=== PATIENT | female | born 1960 | race Caucasian/White ===

== ENCOUNTER 2016-09-24 18:26 | Observation (INO) | payer OTHER ==
[2016-09-24] MEDS ORDERED: methylPREDNISolone Sodium Succinate 125 MG/2 ML SDV IVPUSH ONE (19:33)
[2016-09-24] MEDS ORDERED: Sodium Chloride 0.9% 10 ML Syringe FLUSH PRN (19:33)
[2016-09-24] MEDS ORDERED: Albuterol/Ipratropium 3.0-0.5 MG/3 ML Neb Soln NEB ONE (19:33)
[2016-09-24] MEDS ORDERED: Albuterol/Ipratropium 3.0-0.5 MG/3 ML Neb Soln ONE (19:43)
--- NOTE | 2016-09-24 19:56 | EDM.PDOC ---
ED HISTORY OF PRESENT ILLNESS - General Chief Complaint: Respiratory Problem Stated Complaint: ASTHMA ATTACK Time Seen by Provider: 09/24/16 19:17 Source: Reports: Patient History Limitations: Reports: No limitations - History of Present Illness INITIAL COMMENTS - FREE TEXT/NARRATIVE: This lady comes in complaining of shortness of breath. She had pneumonia about September 08 or . She said initially she took a Z-Facundo followed by some other antibiotic and then eventually was put on Levaquin and prednisone. She finished that about 2 days ago. She's complaining of increasing shortness of breath. She denies any kind of edema. She denies any type of heart disease. She denies any fever. She has a history of asthma and has a nebulizer at home. She's been using DuoNeb. - Related Data Allergies/ADRs: Allergies Allergy/AdvReac Type Severity Reaction Status Date / Time aspirin Allergy Cannot Verified 07/09/16 12:32 Remember bupropion HCl Allergy Other Verified 07/09/16 12:32 [From Wellbutrin] ceftriaxone sodium Allergy Respiratory Verified 07/09/16 12:32 [From Rocephin] Distress Sulfa (Sulfonamide Allergy Hives Verified 07/09/16 12:32 Antibiotics) Home Meds: Home Meds Venlafaxine HCl [Venlafaxine HCl] 150 mg PO BID 10/04/13 [History] Albuterol/Ipratropium [Combivent Respimat] 1 puff IH QID 07/16/14 [History] Albuterol/Ipratropium [DuoNeb 3.0-0.5 MG/3 ML] 3 ml IH Q6H PRN 09/13/15 [History ] Ibuprofen 4 tab PO ASDIRECTED 07/09/16 [History] Past Medical History Respiratory History: Reports: Asthma, COPD [employer] History: Reports: Other (see below) Other OB/BYN History: ovarian cyst Psychiatric History: Reports: Anxiety, Depression - Infectious Disease History Infectious Disease History: Reports: Chicken pox, Measles - Past Surgical History Female Surgical History: Reports: Oophorectomy Social & Family History - Tobacco Use Smoking Status *Q: Current Every Day Smoker Years of Tobacco use: 30 Packs/Tins Daily: 0.5 Used Tobacco, but Quit: Yes Month Tobacco Last Used: 07/29 Second Hand Smoke Exposure: Yes - Caffeine Use Caffeine Use: Reports: None - Alcohol Use Days Per Week of Alcohol Use: 0 - Recreational Drug Use Recreational Drug Use: No ED ROS GENERAL - Review of Systems Review Of Systems: ROS reveals no pertinent complaints other than HPI. ED EXAM, GENERAL - Physical Exam Exam: See Below Exam Limited By: No limitations General Appearance: alert, mild distress, other (Appears to be mildly dyspneic audible wheezes) Eye Exam: bilateral eye: normal inspection Throat/Mouth: Normal oropharynx Head: atraumatic Neck: normal inspection Respiratory/Chest: respiratory distress (Mild distress), wheezing (Wheezing in all owens decreased air movement) Cardiovascular: regular rate, rhythm, no murmur GI/Abdominal: non tender Extremities: no pedal edema Course - Vital Signs Last Recorded V/S: Last Vital Signs Temp 37.0 C 09/24/16 18:38 Pulse 102 H 09/24/16 18:38 Resp 16 09/24/16 18:38 BP 116/61 09/24/16 18:38 Pulse Ox 92 L 09/24/16 18:38 - Orders/Labs/Meds Orders: Active Orders 24 hr Category Date Time Status Admission Status [Patient Status] [ADT] Routine ADT 09/24/16 20:29 Active EKG Documentation Completion [RC] ASDIRECTED Care 09/24/16 19:33 Active RT Aerosol Therapy [RC] ASDIRECTED Care 09/24/16 19:33 Active RT Aerosol Therapy [RC] ASDIRECTED Care 09/24/16 20:45 Active Chest 2V [CR] Urgent Exams 09/24/16 19:33 Taken Sodium Chloride 0.9% [Saline Flush] Med 09/24/16 19:33 Active 10 ml FLUSH ASDIRECTED PRN Saline Lock Insert [OM.PC] Urgent Oth 09/24/16 19:33 Ordered EKG 12 Lead [EK] Urgent Ther 09/24/16 19:33 Ordered Medication Orders Sodium Chloride (Saline Flush) 10 ml FLUSH ASDIRECTED PRN PRN Reason: Keep Vein Open Last Admin: 09/24/16 19:50 Dose: 10 ml Labs: Laboratory Tests 09/24/16 09/24/16 Range/Units 19:45 19:45 WBC 11.4 H (4.5-11.0) K/uL RBC 5.10 (3.30-5.50) M/uL Hgb 15.4 H (12.0-15.0) g/dL Hct 47.7 (36.0-48.0) % MCV 94 (80-98) fL MCH 30 (27-31) pg MCHC 32 (32-36) % Plt Count 289 (150-400) K/uL Neut % (Auto) 70 H (36-66) % Lymph % (Auto) 18 L (24-44) % [place] % (Auto) 12 H (2-6) % Eos % (Auto) 0 L (2-4) % Baso % (Auto) 0 (0-1) % Sodium 140 (140-148) mmol/L Potassium 4.1 (3.6-5.2) mmol/L Chloride 102 (100-108) mmol/L Carbon Dioxide 32 (21-32) mmol/L Anion Gap 6.5 (5.0-14.0) mmol/L BUN 13 (7-18) mg/dL Creatinine 0.7 (0.6-1.0) mg/dL Est Cr Clr Drug Dosing 78.41 mL/min Estimated GFR (MDRD) > 60 (>60) Glucose 103 (74-106) mg/dL Calcium 8.7 (8.5-10.1) mg/dL Total Bilirubin 0.4 (0.2-1.0) mg/dL AST 23 (15-37) U/L ALT 70 D (12-78) U/L Alkaline Phosphatase 74 (46-116) U/L Total Protein 7.7 (6.4-8.2) g/dL Albumin 3.8 (3.4-5.0) g/dL Globulin 3.9 H (2.3-3.5) g/dL Albumin/Globulin Ratio 1.0 L (1.2-2.2) Meds: Medications Generic Name Dose Route Start Last Admin Trade Name Freq PRN Reason Stop Dose Admin Sodium Chloride 10 ml 09/24/16 19:33 09/24/16 19:50 Saline Flush FLUSH 10 ml ASDIRECTED PRN Administration Keep Vein Open Discontinued Medications Generic Name Dose Route Start Last Admin Trade Name Freq PRN Reason Stop Dose Admin Albuterol 2.5 mg 09/24/16 20:45 Proventil Neb Soln NEB 09/24/16 20:46 ONETIME ONE Albuterol/Ipratropium 3 ml 09/24/16 19:33 09/24/16 19:44 Duoneb 3.0-0.5 Mg/3 Ml NEB 09/24/16 19:34 3 ml ONETIME ONE Administration Albuterol/Ipratropium Confirm 09/24/16 19:43 09/24/16 20:10 Duoneb 3.0-0.5 Mg/3 Ml Administered 09/24/16 19:44 Not Given Dose 3 ml .ROUTE .STK-MED ONE Methylprednisolone Sodium Succinate 125 mg 09/24/16 19:33 09/24/16 19:49 Solu-Medrol IVPUSH 09/24/16 19:34 125 mg ONETIME ONE Administration - Re-Assessments/Exams Free Text/Narrative Re-Assessment/Exam: 09/24/16 20:47 Chest x-ray shows no obvious infiltrate she appears hyperexpanded. Heart size is normal. No evidence of pulmonary edema Patient receives a DuoNeb nebulizer in the ER as well as Solu-Medrol 125 mg IV. I rechecked her just a short while ago and she is still wheezing and very tight so will do a straight albuterol nebulizer. I spoke with Dr. Johnson a short while ago the patient will be admitted to his service. He will see her upstairs. 09/24/16 20:49 At this point I don't think the lady needs ICU admission Departure - Departure Time of Disposition: 20:48 Disposition: Admitted As Inpatient 66 Condition: serious Clinical Impression: Asthmatic bronchitis with acute exacerbation Forms: ED Department Discharge - My Orders Last 24 Hours: My Active Orders 09/24/16 19:33 EKG Documentation Completion [RC] ASDIRECTED RT Aerosol Therapy [RC] ASDIRECTED Chest 2V [CR] Urgent Sodium Chloride 0.9% [Saline Flush] 10 ml FLUSH ASDIRECTED PRN Saline Lock Insert [OM.PC] Urgent EKG 12 Lead [EK] Urgent 09/24/16 20:45 RT Aerosol Therapy [RC] ASDIRECTED - Assessment/Plan Last 24 Hours: My Active Orders 09/24/16 19:33 EKG Documentation Completion [RC] ASDIRECTED RT Aerosol Therapy [RC] ASDIRECTED Chest 2V [CR] Urgent Sodium Chloride 0.9% [Saline Flush] 10 ml FLUSH ASDIRECTED PRN Saline Lock Insert [OM.PC] Urgent EKG 12 Lead [EK] Urgent 09/24/16 20:45 RT Aerosol Therapy [RC] ASDIRECTED
[2016-09-24] MEDS ORDERED: Albuterol 0.083% 2.5 MG/3 ML Neb Soln NEB ONE (20:45)
[2016-09-24] MEDS ORDERED: Acetaminophen 325 MG Tab PO PRN (21:28)
[2016-09-24] MEDS ORDERED: Calcium Carbonate 500 MG Tab.Chew PO PRN (21:28)
[2016-09-24] MEDS ORDERED: Azithromycin 250 MG Tab PO ONE (21:45)
[2016-09-24] MEDS ORDERED: Levofloxacin 500 MG Tab PO SCH (22:00)
[2016-09-24] MEDS: Albuterol/Ipratropium 3.0-0.5 MG/3 ML Neb Soln NEB SCH (22:19)
[2016-09-24] MEDS: Venlafaxine 75 MG Tab PO SCH (22:37)
--- NOTE | 2016-09-24 23:55 | HP ---
IDENTIFYING DATA: Alyx Zhang is a 55-year-old, female from [place]. CHIEF COMPLAINT: Exacerbation of asthma. HISTORY OF PRESENT ILLNESS: Adult female reports a pulmonary infection approximately 2-3 weeks ago. She completed a course of Levaquin approximately four days ago, reporting at that time, her respiratory status was stable. However, over the last 48 hours, she has had increased wheeze, shortness of breath, cough, and scant sputum production. She has had no hemoptysis or purulent sputum. No fevers or chills noted. She has failed to see improvement with use of inhaled therapy and was admitted for ongoing treatment. She is a smoker of 1/2 pack per day. Denies environmental allergies. Does use inhaled therapies approximately four times daily. Additionally, she has a history of chronic depressive illness with accompanying anxiety managed with use of venlafaxine. HABITS: Smoker of 1/2 pack per day. Caffeine use, one carbonated caffeine-free beverage daily. Alcohol use, none. Denies other drug use. IMMUNIZATIONS: She believes she received influenza vaccine this past fall though not confirmed by medical records. The last Pneumovax administered in 2011. SOCIAL HISTORY: Residing with family. 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 FAMILY HISTORY: Denies other illness of similar sort in the household at present time. REVIEW OF SYSTEMS: NEUROLOGIC: No history of stroke, seizures, focal weakness, or ocular disease. CARDIAC: No history of hypertension, diabetes, congenital heart disease, PR, chest pain, palpitations, or syncope. RESPIRATORY: As above. GI: Denies chronic dyspepsia, nausea, emesis, diarrhea, constipation, or melena. No history of hepatitis. : Normal voiding patterns. No incontinence. MUSCULOSKELETAL: Without complaints of arthralgias. ALLERGIES: REPORTED TO ASPIRIN, BUPROPION, CEFTRIAXONE, AND SULFA. CURRENT MEDICATIONS: Venlafaxine 150 mg b.i.d.; Combivent 1 puff b.i.d.; DuoNeb, one nebulizer treatment b.i.d.; ibuprofen 600 to 800 mg p.r.n. discomfort. PHYSICAL EXAMINATION: GENERAL: Appearance is that of a mildly dyspneic adult female, seen in the hospital bed setting. VITAL SIGNS: Temperature 37 degrees centigrade, pulse 102, respiratory rate 16, blood pressure 116/61, O2 saturations 92% on room air. HEENT: Ears are normal in appearance. Sclerae anicteric. Extraocular eye movements intact. No nasal congestion. She is edentulous. No oropharyngeal lesions. NECK: No adenopathy or thyromegaly. Brisk carotid pulses. No bruits or JVD. LUNGS: Mildly tachypneic. Fine bilateral expiratory wheezes noted. No rales or rhonchi noted. HEART: Regular. Borderline tachycardic. No murmurs, gallops noted. ABDOMEN: Moderately obese. Soft and nontender. No organomegaly. Active sounds. Good femoral pulses. No abdominal bruits. No CVA pain. /RECTAL: Exam omitted. EXTREMITIES: Good pulses, no edema. No ischemic skin changes. No varicosities or open ulcerations. LABORATORY DATA: On admission, WBC 11.4, hemoglobin 15.4, hematocrit 47.7, platelet count 289,000 with 70 segs, 18 lymphocytes, 12 monos, sodium 140, potassium 4.1, BUN 13, creatinine 0.7, glucose 103, calcium 8.7, alkaline phosphatase 74, AST 23. IMPRESSIONS: 1. Exacerbation of chronic persistent asthmatic lung disease. 2. Reports of recent pneumonia responding to outpatient antibiotic therapy. 3. Chronic tobacco use. 4. History of depression with accompanying anxiety. 5. Allergies as noted above. PLAN: The patient is admitted to observation status in the Med/Surge Department. We will provide IV Solu-Medrol, steroid therapies, as well as supplemental O2 on a p.r.n. basis and oral broad-spectrum antibiotics with combination of azithromycin and Levaquin in light of ceftriaxone allergy by the patient's report. We will avoid penicillin and cephalosporin antibiotic therapies. I did offer nicotine patch for tobacco withdrawal, patient refuses. She will abstain from use of tobacco. Offer standard diet as tolerated. Allow activity as tolerated. Anticipate discharge home in 24 to 48 hours if acute respiratory symptoms quiet with conversion to oral steroid administration and outpatient followup. Moo Johnson MD /[id number]
[2016-09-25] MEDS: Albuterol/Ipratropium 3.0-0.5 MG/3 ML Neb Soln NEB SCH ×7 (00:37→22:59)
[2016-09-25] MEDS ORDERED: Benzonatate 100 MG Cap PO PRN (00:47)
[2016-09-25] MEDS ORDERED: methylPREDNISolone Sod Succ 125 MG in Dextrose 5% in Water 100 ML IV SCH ×2 (04:00)
[2016-09-25] MEDS ORDERED: methylPREDNISolone Sodium Succinate 125 MG/2 ML SDV ONE (05:24)
[2016-09-25] MEDS ORDERED: methylPREDNISolone Sodium Succinate 125 MG/2 ML SDV IVPUSH SCH (05:30)
[2016-09-25] MEDS ORDERED: Albuterol/Ipratropium 3.0-0.5 MG/3 ML Neb Soln ONE (07:26)
--- NOTE | 2016-09-25 08:46 | PN ---
DATE OF SERVICE: 09/25/2016 SUBJECTIVE: Adult female, smoker, has a noted history of chronic asthmatic lung disease with maintenance inhaled therapy, including DuoNeb and Combivent metered dose inhaler. She was noted to have an acute respiratory infection 2 weeks ago and completed a course of antibiotic therapy with use of Levaquin as well as short course of oral steroids late last week. Through the weekend, she had increasing wheezing and shortness of breath. She has had no fevers, chills, or purulent sputum production. She was admitted for ongoing respiratory therapies. OBJECTIVE: GENERAL: Sleeping soundly, arousable, mild wheeze persist. VITAL SIGNS: Temperature 36.4 degree centigrade, pulse 107, blood pressure 131/75, respiratory rate 18, with O2 sats of 89% on room air. LUNGS: Mild fine expiratory wheezes bilaterally. Non-tachypneic. No rales or rhonchi. HEART: Regular without murmurs or gallops. SKIN: Warm, pink, and dry. IMPRESSION AND PLAN: Exacerbation of asthmatic lung disease in a smoking female. She remains tobacco free since admission, has refused nicotine products for nicotine withdrawal symptoms. We will continue with combination antibiotics using azithromycin and Levaquin as well as IV Solu-Medrol. DuoNeb inhalation therapies are scheduled on a 4-hour interval. Anticipate transition to oral prednisone. Continuation of oral Levaquin and azithromycin and discharge to home when her episode of acute exacerbation is stabilized. Moo Johnson MD /[id number]
[2016-09-25] MEDS ORDERED: Azithromycin 250 MG Tab PO SCH (09:00)
[2016-09-25] MEDS ORDERED: Venlafaxine 75 MG Tab PO SCH (09:00)
[2016-09-25] MEDS ORDERED: Nicotine 21 MG/24 Hr Patch TRDERM SCH (09:00)
[2016-09-25] MEDS: Venlafaxine 75 MG Tab PO SCH ×2 (09:19→21:30)
[2016-09-25] MEDS ORDERED: Pneumococcal Polyvalent-23 Vaccine 0.5 ML SDV IM ONE (10:00)
--- NOTE | 2016-09-25 10:24 | CR ---
Heart size within normal limits. No focal consolidation. Some probable chronic atelectasis similar c ompared to prior in the lingula.
[2016-09-25] MEDS: methylPREDNISolone Sodium Succinate 125 MG/2 ML SDV IVPUSH SCH ×2 (14:01→21:31)
[2016-09-25] MEDS ORDERED: Levofloxacin 500 MG Tab PO SCH (22:00)
[2016-09-26] MEDS: Albuterol/Ipratropium 3.0-0.5 MG/3 ML Neb Soln NEB SCH ×3 (02:59→10:52)
[2016-09-26] MEDS: methylPREDNISolone Sodium Succinate 125 MG/2 ML SDV IVPUSH SCH (05:56)
[2016-09-26] MEDS: Venlafaxine 75 MG Tab PO SCH (09:46)
[2016-09-26 11:11] VITALS: BP 138/78
--- NOTE | 2016-09-26 12:24 | PCM.DCSUM1 ---
Discharge Summary - Hospital Course Brief History: 55-year-old female with history of COPD who presented with worsening shortness of breath and cough and was admitted for management of an exacerbation of COPD secondary to bronchitis - Discharge Data Discharge Date: 09/26/16 Discharge Disposition: Home, Self-Care 01 Condition: Good - Discharge Diagnosis/Problem(s) (1) Asthmatic bronchitis with acute exacerbation SNOMED Code(s): 599659661, [id number] ICD Code: J45.901 - UNSPECIFIED ASTHMA WITH (ACUTE) EXACERBATION Status: Acute - Patient Summary/Data Hospital Course: Alyx presented to the emergency room with cough and shortness of breath despite recent treatment with antibiotics and initially apparent improvement. Workup in the emergency room was suggestive of acute bronchitis with an asthma exacerbation. Laboratory studies were normal. She was mildly hypoxic but significantly symptomatic. She was admitted to the hospital and started on both levofloxacin and azithromycin. She was started on IV Solu-Medrol. She did require intermittent supplemental oxygen. Over the next couple of days she showed a fairly quick improvement. Her wheezing decreased throughout the course of the hospital stay. Her oxygenation improved slowly throughout the hospital stay. No cultures were obtained during hospital stay because of a nonproductive cough. By the day of discharge she has improved significantly. Her wheezing has not completely resolved but is only mild and expiratory at this point. She is achieving oxygen saturations in the 90s on room air. Clinically she feels well enough to go home and I believe she is safe for outpatient management. Medications at the time of discharge will include continuing her nebulizers at home as well as 5 days of levofloxacin therapy taken at bedtime and a prednisone taper over the next 8 days with 20 mg twice a day for 3 days and 20 mg once a day for 5 days. - Patient Instructions Diet: Regular Diet as Tolerated Activity: As Tolerated Driving: May Drive Today Showering/Bathing: May Shower Notify Provider of: Fever, Increased Pain, Nausea and/or Vomiting Other/Special Instructions: 1. You were in the hospital for management of acute bronchitis with an acute exacerbation of COPD. I recommend 5 additional days of antibiotic therapy with levofloxacin taken once daily at bedtime. You should also take prednisone 20 mg by mouth twice daily for 5 more doses then 20 mg once daily for 5 days thereafter. This will give you a total of 10 days of steroids. Your first dose of prednisone is due to this evening with supper. 2. Continue to use your nebulizer 4 times daily and as needed until your breathing improves further. 3. Seek medical attention if you develop fever greater than 101, your shortness of breath gets worse or you develop chest pain. - Discharge Plan Prescriptions/Med Rec: Levofloxacin 750 mg PO BEDTIME #5 tablet predniSONE [Prednisone] 20 mg PO ASDIRECTED #10 tablet Home Medications: Home Meds Venlafaxine HCl 150 mg PO BID 10/04/13 [History] Albuterol/Ipratropium [Combivent Respimat] 1 puff IH QID 07/16/14 [History] Albuterol/Ipratropium [DuoNeb 3.0-0.5 MG/3 ML] 3 ml IH Q6H PRN 09/13/15 [History ] Ibuprofen 4 tab PO ASDIRECTED 07/09/16 [History] Levofloxacin 750 mg PO BEDTIME #5 tablet 09/26/16 [Rx] predniSONE [Prednisone] 20 mg PO ASDIRECTED #10 tablet 09/26/16 [Rx] Patient Handouts: Acute Bronchitis, Prednisone tablets Referrals: Misti Muñoz PA [Primary Care Provider] - 09/29/16 (f/u Sunday - f/u hospital stay for bronchitis with COPD exacerbation) - Discharge Summary/Plan Comment DC Time >30 min.: No (25) - Patient Data Vitals - Most Recent: Last Vital Signs Temp 36.9 C 09/26/16 11:00 Pulse 117 H 09/26/16 11:00 Resp 20 09/26/16 11:00 BP 138/78 09/26/16 11:00 Pulse Ox 88 L 09/26/16 11:00 Weight - Most Recent: 85.275 kg I&O - Last 24 hours: Intake & Output 09/25/16 09/26/16 09/26/16 22:59 06:59 14:59 Intake Total 1000 360 Balance 1000 360 Med Orders - Current: Current Medications Acetaminophen (Tylenol) 650 mg PO Q4H PRN PRN Reason: analgesia/fever Albuterol/Ipratropium (Duoneb 3.0-0.5 Mg/3 Ml) 3 ml NEB Q4H [facility] Last Admin: 09/26/16 10:52 Dose: 3 ml Benzonatate (Tessalon Perles) 200 mg PO TID PRN PRN Reason: Cough Calcium Carbonate/Glycine (Tums) 500 mg PO Q4H PRN PRN Reason: Indigestion Levofloxacin 500 mg/ (Levofloxacin 250 mg) 750 mg PO Q24H [facility] Last Admin: 09/25/16 21:30 Dose: 750 mg Methylprednisolone Sodium Succinate (Solu-Medrol) 62.5 mg IVPUSH Q8H [facility] Last Admin: 09/26/16 05:56 Dose: 62.5 mg Sodium Chloride (Saline Flush) 10 ml FLUSH ASDIRECTED PRN PRN Reason: Keep Vein Open Last Admin: 09/24/16 19:50 Dose: 10 ml Venlafaxine HCl (Effexor) 150 mg PO BID [facility] Last Admin: 09/26/16 09:46 Dose: 150 mg Discontinued Medications Albuterol (Proventil Neb Soln) 2.5 mg NEB ONETIME ONE Stop: 09/24/16 20:46 Last Admin: 09/24/16 21:09 Dose: 2.5 mg Albuterol/Ipratropium (Duoneb 3.0-0.5 Mg/3 Ml) 3 ml NEB ONETIME ONE Stop: 09/24/16 19:34 Last Admin: 09/24/16 19:44 Dose: 3 ml Albuterol/Ipratropium (Duoneb 3.0-0.5 Mg/3 Ml) Confirm Administered Dose 3 ml .ROUTE .STK-MED ONE Stop: 09/24/16 19:44 Last Admin: 09/24/16 20:10 Dose: Not Given Albuterol/Ipratropium (Duoneb 3.0-0.5 Mg/3 Ml) 3 ml NEB Q4H [facility] Last Admin: 09/25/16 07:30 Dose: 3 ml Albuterol/Ipratropium (Duoneb 3.0-0.5 Mg/3 Ml) Confirm Administered Dose 3 ml .ROUTE .STK-MED ONE Stop: 09/25/16 07:27 Last Admin: 09/25/16 07:31 Dose: Not Given Azithromycin (Zithromax) 500 mg PO ONETIME ONE Stop: 09/24/16 21:46 Last Admin: 09/24/16 22:30 Dose: 500 mg Azithromycin (Zithromax) 250 mg PO DAILY [facility] Stop: 09/28/16 09:01 Last Admin: 09/25/16 09:19 Dose: 250 mg Methylprednisolone Sodium Succinate 125 mg/ Dextrose/Water 102 mls @ 200 mls/ hr IV Q8H [facility] Last Admin: 09/25/16 05:40 Dose: Not Given Levofloxacin (Levaquin) 500 mg PO Q24H [facility] Last Admin: 09/24/16 22:30 Dose: 500 mg Levofloxacin (Levaquin) 750 mg PO Q24H [facility] Methylprednisolone Sodium Succinate (Solu-Medrol) 125 mg IVPUSH ONETIME ONE Stop: 09/24/16 19:34 Last Admin: 09/24/16 19:49 Dose: 125 mg Methylprednisolone Sodium Succinate (Solu-Medrol) Confirm Administered Dose 125 mg .ROUTE .STK-MED ONE Stop: 09/25/16 05:25 Last Admin: 09/25/16 05:36 Dose: Not Given Methylprednisolone Sodium Succinate (Solu-Medrol) 125 mg IVPUSH Q8H [facility] Last Admin: 09/25/16 05:35 Dose: 125 mg Nicotine (Habitrol) 21 mg TRDERM DAILY [facility] Pneumococcal Polyvalent Vaccine (Pneumovax 23) 0.5 ml IM .ONCE ONE Stop: 09/25/16 10:01 Last Admin: 09/25/16 11:13 Dose: Not Given Venlafaxine HCl (Effexor) 150 mg PO BID [facility] *Q Meaningful Use (DIS) - VTE *Q VTE Criteria *Q: - Stroke *Q Stroke Criteria *Q: - AMI *Q AMI Criteria *Q:
== END 2016-09-26 13:26 | disposition home or self-care (01) ==
LOC: JP.ED 18:26 → JP.MS 20:29
PROVIDERS: ADMIT Family Medicine; ATTEND Internal Medicine
DX: J45.901 Unspecified asthma with (acute) exacerbation (principal); F41.8 Other specified anxiety disorders; F17.200 Nicotine dependence, unspecified, uncomplicated; Z79.899 Other long term (current) drug therapy; Z88.2 Allergy status to sulfonamides; Z88.8 Allergy status to other drugs, medicaments and biological substances
CPT/HCPCS: 36415; 71020; 80053; 85025; 93005; 94640; 96374; 96376; 99285; A9270; G0378; J2930; J7050; J7620

== ENCOUNTER 2017-04-27 12:38 | Inpatient (IN) | payer OTHER ==
[2017-04-27] MEDS ORDERED: Albuterol 0.083% 2.5 MG/3 ML Neb Soln NEB ONE ×2 (13:31→14:29)
[2017-04-27] MEDS ORDERED: methylPREDNISolone Sodium Succinate 125 MG/2 ML SDV IVPUSH ONE (13:32)
--- NOTE | 2017-04-27 13:41 | EDM.PDOC ---
ED HPI GENERAL MEDICAL PROBLEM - General Chief Complaint: Respiratory Problem Stated Complaint: SOB Time Seen by Provider: 04/27/17 13:39 Source of Information: Reports: Patient, Family History Limitations: Reports: No Limitations - History of Present Illness INITIAL COMMENTS - FREE TEXT/NARRATIVE: pt arrived very sob and wheezing. She has been ill for about 3 days. For 2 days she has received 40 mg of predisone. Onset: Today, Gradual Duration: Day(s):, Getting Worse Location: Reports: Chest Associated Symptoms: Reports: Cough, Shortness of Breath Neck Pain Score (Numeric/FACES): 10 - Related Data Allergies Allergy/AdvReac Type Severity Reaction Status Date / Time aspirin Allergy Cannot Verified 04/27/17 13:19 Remember bupropion HCl Allergy Other Verified 04/27/17 13:19 [From Wellbutrin] ceftriaxone sodium Allergy Respiratory Verified 04/27/17 13:19 [From Rocephin] Distress Sulfa (Sulfonamide Allergy Hives Verified 04/27/17 13:19 Antibiotics) Home Meds: Home Meds Venlafaxine HCl 150 mg PO BID 10/04/13 [History] Albuterol/Ipratropium [Combivent Respimat] 1 puff IH QID 07/16/14 [History] Albuterol/Ipratropium [DuoNeb 3.0-0.5 MG/3 ML] 3 ml IH Q6H PRN 09/13/15 [History ] predniSONE [Prednisone] 1 tab PO ASDIRECTED 04/27/17 [History] Past Medical History Respiratory History: Reports: Asthma, COPD, Pneumonia, Recurrent 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 (See Below) Other OB/BYN History: ovarian cyst Musculoskeletal History: Reports: Fracture Psychiatric History: Reports: Anxiety, Depression - Infectious Disease History Infectious Disease History: Reports: Chicken Pox, Measles - Past Surgical History Female Surgical History: Reports: Oophorectomy Social & Family History - Family History OBGYN: Reports: Fibroids Musculoskeletal: Reports: Arthritis Psychiatric: Reports: Anxiety, Depression - Tobacco Use Smoking Status *Q: Light Tobacco Smoker Years of Tobacco use: 30 Packs/Tins Daily: 0.3 Used Tobacco, but Quit: Yes Month Tobacco Last Used: 07/29 Second Hand Smoke Exposure: Yes - Caffeine Use Caffeine Use: Reports: None - Alcohol Use Days Per Week of Alcohol Use: 0 - Recreational Drug Use Recreational Drug Use: No ED ROS GENERAL - Review of Systems Review Of Systems: See Below Constitutional: Reports: Chills, Malaise, Night Sweats HEENT: Reports: No Symptoms Respiratory: Reports: Shortness of Breath, Wheezing, Cough, Sputum Cardiovascular: Reports: No Symptoms Endocrine: Reports: No Symptoms GI/Abdominal: Reports: No Symptoms : Reports: No Symptoms Musculoskeletal: Reports: No Symptoms Skin: Reports: No Symptoms Neurological: Reports: No Symptoms Psychiatric: Reports: No Symptoms ED EXAM, GENERAL - Physical Exam Exam: See Below Free Text/Narrative:: pt arrived with increased wheezing and sob. She has been ill for the past 3 days. Exam Limited By: No Limitations General Appearance: Alert, Anxious, Moderate Distress Ears: Normal TMs Nose: Normal Inspection Throat/Mouth: Normal Inspection Head: Atraumatic Neck: Normal Inspection Respiratory/Chest: Decreased Breath Sounds, Crackles, Wheezing Cardiovascular: Regular Rate, Rhythm, Tachycardia GI/Abdominal: Soft, Non-Tender (Female) Exam: Deferred Back Exam: Normal Inspection Extremities: Normal Inspection Neurological: Alert, Oriented, Normal Cognition Psychiatric: Normal Affect Course - Vital Signs Last Recorded V/S: Last Vital Signs Temp 37.3 C 04/27/17 13:17 Pulse 103 H 04/27/17 14:44 Resp 18 04/27/17 14:44 BP 128/64 04/27/17 14:44 Pulse Ox 90 L 04/27/17 14:44 - Orders/Labs/Meds Orders: Active Orders 24 hr Category Date Time Status RT Aerosol Therapy [RC] ASDIRECTED Care 04/27/17 13:32 Active RT Aerosol Therapy [RC] ASDIRECTED Care 04/27/17 14:30 Active Sodium Chloride 0.9% [Normal Saline] 1,000 ml Med 04/27/17 13:45 Active IV ASDIRECTED Medication Orders Sodium Chloride (Normal Saline) 1,000 mls @ 250 mls/hr IV ASDIRECTED EVELYN Last Admin: 04/27/17 13:48 Dose: 250 mls/hr Labs: Laboratory Tests 04/27/17 04/27/17 04/27/17 Range/Units 13:35 13:45 13:45 WBC 23.7 H (4.5-11.0) K/uL RBC 4.91 (3.30-5.50) M/uL Hgb 14.5 (12.0-15.0) g/dL Hct 44.7 (36.0-48.0) % MCV 91 (80-98) fL MCH 30 (27-31) pg MCHC 32 (32-36) % Plt Count 272 (150-400) K/uL Neut % (Auto) 94 H (36-66) % Lymph % (Auto) 3 L (24-44) % Wilkes % (Auto) 3 (2-6) % Eos % (Auto) 0 L (2-4) % Baso % (Auto) 0 (0-1) % Puncture Site Rt brachial ABG pH 7.406 (7.350-7.450) ABG pCO2 42.3 H (35.0-42.0) mmHg ABG pO2 53.7 L (75.0-100.0) mmHg ABG HCO3 26.0 (22.0-26.0) mmol/L ABG Total CO2 22.8 (21.0-25.0) mmol/L ABG O2 Saturation 88.4 L (95.0-98.0) % ABG O2 Content 17.7 (15.0-23.0) %vol ABG Base Excess 1.6 mm/L ABG Hemoglobin 14.6 (12.0-16.0) g/dL ABG Oxyhemoglobin 86.2 % ABG Carboxyhemoglobin 1.8 H (0.0-1.6) % ABG Methemoglobin 0.7 % Farhad Test Passed O2 Delivery Device Nasal cannula Sodium 134 L (140-148) mmol/L Potassium 4.0 (3.6-5.2) mmol/L Chloride 99 L (100-108) mmol/L Carbon Dioxide 26 (21-32) mmol/L Anion Gap 13.0 (5.0-14.0) mmol/L BUN 16 (7-18) mg/dL Creatinine 0.7 (0.6-1.0) mg/dL Est Cr Clr Drug Dosing 77.49 mL/min Estimated GFR (MDRD) > 60 (>60) Glucose 162 H (74-106) mg/dL Calcium 8.5 (8.5-10.1) mg/dL Total Bilirubin 0.3 (0.2-1.0) mg/dL AST 30 (15-37) U/L ALT 73 (12-78) U/L Alkaline Phosphatase 108 (46-116) U/L Total Protein 7.5 (6.4-8.2) g/dL Albumin 3.7 (3.4-5.0) g/dL Globulin 3.8 H (2.3-3.5) g/dL Albumin/Globulin Ratio 1.0 L (1.2-2.2) Urine Color Urine Appearance Urine pH (4.5-8.0) Ur Specific [place] (1.008-1.030) Urine Protein (NEGATIVE) mg/dL Urine Glucose (UA) (NEGATIVE) mg/dL Urine Ketones (NEGATIVE) mg/dL Urine Occult Blood (NEGATIVE) Urine Nitrite (NEGATIVE) Urine Bilirubin (NEGATIVE) Urine Urobilinogen (NORMAL) mg/dL Ur Leukocyte Esterase (NEGATIVE) Urine RBC (0-5) Urine WBC (0-5) Ur Epithelial Cells Amorphous Sediment Urine Bacteria Urine Mucus //17 Range/Units 14:43 WBC (4.5-11.0) K/uL RBC (3.30-5.50) M/uL Hgb (12.0-15.0) g/dL Hct (36.0-48.0) % MCV (80-98) fL MCH (27-31) pg MCHC (32-36) % Plt Count (150-400) K/uL Neut % (Auto) (36-66) % Lymph % (Auto) (24-44) % Wilkes % (Auto) (2-6) % Eos % (Auto) (2-4) % Baso % (Auto) (0-1) % Puncture Site ABG pH (7.350-7.450) ABG pCO2 (35.0-42.0) mmHg ABG pO2 (75.0-100.0) mmHg ABG HCO3 (22.0-26.0) mmol/L ABG Total CO2 (21.0-25.0) mmol/L ABG O2 Saturation (95.0-98.0) % ABG O2 Content (15.0-23.0) %vol ABG Base Excess mm/L ABG Hemoglobin (12.0-16.0) g/dL ABG Oxyhemoglobin % ABG Carboxyhemoglobin (0.0-1.6) % ABG Methemoglobin % Farhad Test O2 Delivery Device Sodium (140-148) mmol/L Potassium (3.6-5.2) mmol/L Chloride (100-108) mmol/L Carbon Dioxide (21-32) mmol/L Anion Gap (5.0-14.0) mmol/L BUN (7-18) mg/dL Creatinine (0.6-1.0) mg/dL Est Cr Clr Drug Dosing mL/min Estimated GFR (MDRD) (>60) Glucose (74-106) mg/dL Calcium (8.5-10.1) mg/dL Total Bilirubin (0.2-1.0) mg/dL AST (15-37) U/L ALT (12-78) U/L Alkaline Phosphatase (46-116) U/L Total Protein (6.4-8.2) g/dL Albumin (3.4-5.0) g/dL Globulin (2.3-3.5) g/dL Albumin/Globulin Ratio (1.2-2.2) Urine Color Yellow Urine Appearance Clear Urine pH 6.0 (4.5-8.0) Ur Specific [place] 1.015 (1.008-1.030) Urine Protein Trace (NEGATIVE) mg/dL Urine Glucose (UA) Normal (NEGATIVE) mg/dL Urine Ketones Negative (NEGATIVE) mg/dL Urine Occult Blood Negative (NEGATIVE) Urine Nitrite Negative (NEGATIVE) Urine Bilirubin Negative (NEGATIVE) Urine Urobilinogen Normal (NORMAL) mg/dL Ur Leukocyte Esterase Negative (NEGATIVE) Urine RBC Not seen (0-5) Urine WBC 0-5 (0-5) Ur Epithelial Cells Few Amorphous Sediment Rare Urine Bacteria Few Urine Mucus Moderate Meds: Medications Generic Name Dose Route Start Last Admin Trade Name Freq PRN Reason Stop Dose Admin Sodium Chloride 1,000 mls @ 250 mls/hr 04/27/17 13:45 04/27/17 13:48 Normal Saline IV 250 mls/hr ASDIRECTED EVELYN Administration Discontinued Medications Generic Name Dose Route Start Last Admin Trade Name Freq PRN Reason Stop Dose Admin Albuterol 2.5 mg 04/27/17 13:31 04/27/17 13:40 Proventil Neb Soln NEB 04/27/17 13:32 2.5 mg ONETIME ONE Administration Albuterol 2.5 mg 04/27/17 14:29 04/27/17 14:43 Proventil Neb Soln NEB 04/27/17 14:30 2.5 mg ONETIME ONE Administration Methylprednisolone Sodium Succinate 125 mg 04/27/17 13:32 04/27/17 13:47 Solu-Medrol IVPUSH 04/27/17 13:33 125 mg ONETIME ONE Administration - Re-Assessments/Exams Free Text/Narrative Re-Assessment/Exam: 04/27/17 15:07 Pt had o2 sats in the 77 range. She was very wheezy. Her wbc is 23,000. She has been on predisone 40mg daily. She was given 2 nebs and solumedrol 125 iv. She is breathing much better. Departure - Departure Time of Disposition: 15:10 Disposition: Admitted As Inpatient 66 Condition: Fair Clinical Impression: Bronchitis, Bronchospasm, acute, COPD exacerbation - Discharge Information Referrals: Misti Muñoz PA [Primary Care Provider] - Forms: ED Department Discharge Care Plan Goals: admit to Hosp-- Dr abad. - My Orders Last 24 Hours: My Active Orders 04/27/17 13:32 RT Aerosol Therapy [RC] ASDIRECTED 04/27/17 13:45 Sodium Chloride 0.9% [Normal Saline] 1,000 ml IV ASDIRECTED 04/27/17 14:30 RT Aerosol Therapy [RC] ASDIRECTED - Assessment/Plan Last 24 Hours: My Active Orders 04/27/17 13:32 RT Aerosol Therapy [RC] ASDIRECTED 04/27/17 13:45 Sodium Chloride 0.9% [Normal Saline] 1,000 ml IV ASDIRECTED 04/27/17 14:30 RT Aerosol Therapy [RC] ASDIRECTED
[2017-04-27] MEDS ORDERED: Sodium Chloride 0.9% 1,000 ML IV SCH (13:45)
--- NOTE | 2017-04-27 14:15 | CR ---
Chest 2V HISTORY: Shortness of breath. Wheezing. COMPARISON: 09/24/2016. FINDINGS: Hyperinflation. Cardiac size is normal pulmonary vessels normal. No focal infiltrates or ef fusions. Impression no acute pulmonary disease.
--- NOTE | 2017-04-27 15:55 | PCM.HP ---
H&P History of Present Illness - General Date of Service: 04/27/17 Admit Problem/Dx: Admission Diagnosis/Problem Admission Diagnosis/Problem Acute bronchitis Source of Information: Patient, Family, Provider History Limitations: Reports: No Limitations - History of Present Illness Initial Comments - Free Text/Narative: Alyx presents to the ER with 3 days of progressive cough and shortness of breath. She was seen in the walk-in clinic 2 days ago and started on prednisone but has been declining since starting on the steroids. She has a loose but nonproductive cough that has been fairly consistent and persistent. She is now short of breath even at rest. Oxygen saturations were very poor on arrival and she had noticed cyanosis of her nailbeds on the way to the emergency room. She has had subjective fevers but has not measured any true fevers. No complaints of chest pain or chest tightness. She has been using her nebulizers without much improvement in her symptoms. No complaints of abdominal pain or nausea. No lower extremity edema or orthopnea. Her has been sick but he has had sinus congestion, sore throat and cough which seemed to be getting better. Patient does not report sinus congestion or sore throat. No recent antibiotic use. Workup in the emergency room revealed hypoxic respiratory failure and likely bronchitis with acute COPD exacerbation. She will be admitted for further management. Neck Pain Score (Numeric/FACES): 10 - Related Data Allergies/Adverse Reactions: Allergies Allergy/AdvReac Type Severity Reaction Status Date / Time aspirin Allergy Cannot Verified 04/27/17 13:19 Remember bupropion HCl Allergy Other Verified 04/27/17 13:19 [From Wellbutrin] ceftriaxone sodium Allergy Respiratory Verified 04/27/17 13:19 [From Rocephin] Distress Sulfa (Sulfonamide Allergy Hives Verified 04/27/17 13:19 Antibiotics) Home Medications: Home Meds Venlafaxine HCl 150 mg PO BID 10/04/13 [History] Albuterol/Ipratropium [Combivent Respimat] 1 puff IH QID 07/16/14 [History] Albuterol/Ipratropium [DuoNeb 3.0-0.5 MG/3 ML] 3 ml IH Q6H PRN 09/13/15 [History ] predniSONE [Prednisone] 1 tab PO ASDIRECTED 04/27/17 [History] Past Medical History Respiratory History: Reports: Asthma, COPD, Pneumonia, Recurrent [employer]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: Other (See Below) Other OB/BYN History: ovarian cyst Musculoskeletal History: Reports: Fracture Psychiatric History: Reports: Anxiety, Depression - Infectious Disease History Infectious Disease History: Reports: Chicken Pox, Measles - Past Surgical History Female Surgical History: Reports: Oophorectomy Social & Family History - Family History OBGYN: Reports: Fibroids Musculoskeletal: Reports: Arthritis Psychiatric: Reports: Anxiety, Depression - Tobacco Use Smoking Status *Q: Light Tobacco Smoker Years of Tobacco use: 30 Packs/Tins Daily: 0.3 Used Tobacco, but Quit: Yes Month Tobacco Last Used: 07/29 Second Hand Smoke Exposure: Yes - Caffeine Use Caffeine Use: Reports: None - Alcohol Use Days Per Week of Alcohol Use: 0 - Recreational Drug Use Recreational Drug Use: No H&P Review of Systems - Review of Systems: Review Of Systems: See Below Free Text/Narrative: A complete 12 point review of systems was obtained. Pertinent positives and negatives are noted in the history of present illness. All other systems were reviewed and were negative except as noted. Exam - Exam Exam: See Below - Vital Signs Vital Signs: Last Vital Signs Temp 37.3 C 04/27/17 13: Pulse 103 H 04/27/17 14:44 Resp 18 04/27/17 14:44 BP 128/64 04/27/17 14:44 Pulse Ox 90 L 04/27/17 14:44 Weight: 82.554 kg - Exam Quality Assessment: Supplemental Oxygen General: Alert, Oriented, Cooperative, Mild Distress HEENT: Conjunctiva Clear, Mucosa Moist & [place]. No: Scleral Icterus Neck: Supple, Trachea Midline. No: Lymphadenopathy Lungs: Normal Respiratory Effort, Rhonchi (diffuse exp wheezing ), Wheezing ( diffuse exp wheezing) Cardiovascular: Regular Rate, Regular Rhythm. No: Systolic Murmur GI/Abdominal Exam: Normal Bowel Sounds, Soft, Non-Tender, No Distention Extremities: No Pedal Edema. No: Increased Warmth Skin: Warm, Moist Neuro Extensive - Mental Status: Alert, Oriented x3, Nl Response to Commands Neuro Extensive - Motor, Sensory, Reflexes: CN II-XII Intact. No: Dysarthria, Abnormal Motor, Tremor Psychiatric: Alert, Normal Affect - Patient Data Lab Results Last 24 hrs: Laboratory Results - last 24 hr 04/27/17 04/27/17 04/27/17 Range/Units 13:35 13:45 13:45 WBC 23.7 H (4.5-11.0) K/uL RBC 4.91 (3.30-5.50) M/uL Hgb 14.5 (12.0-15.0) g/dL Hct 44.7 (36.0-48.0) % MCV 91 (80-98) fL MCH 30 (27-31) pg MCHC 32 (32-36) % Plt Count 272 (150-400) K/uL Neut % (Auto) 94 H (36-66) % Lymph % (Auto) 3 L (24-44) % [place] % (Auto) 3 (2-6) % Eos % (Auto) 0 L (2-4) % Baso % (Auto) 0 (0-1) % Puncture Site Rt brachial ABG pH 7.406 (7.350-7.450) ABG pCO2 42.3 H (35.0-42.0) mmHg ABG pO2 53.7 L (75.0-100.0) mmHg ABG HCO3 26.0 (22.0-26.0) mmol/L ABG Total CO2 22.8 (21.0-25.0) mmol/L ABG O2 Saturation 88.4 L (95.0-98.0) % ABG O2 Content 17.7 (15.0-23.0) %vol ABG Base Excess 1.6 mm/L ABG Hemoglobin 14.6 (12.0-16.0) g/dL ABG Oxyhemoglobin 86.2 % ABG Carboxyhemoglobin 1.8 H (0.0-1.6) % ABG Methemoglobin 0.7 % Farhad Test Passed O2 Delivery Device Nasal cannula Sodium 134 L (140-148) mmol/L Potassium 4.0 (3.6-5.2) mmol/L Chloride 99 L (100-108) mmol/L Carbon Dioxide 26 (21-32) mmol/L Anion Gap 13.0 (5.0-14.0) mmol/L BUN 16 (7-18) mg/dL Creatinine 0.7 (0.6-1.0) mg/dL Est Cr Clr Drug Dosing 77.49 mL/min Estimated GFR (MDRD) > 60 (>60) Glucose 162 H (74-106) mg/dL Calcium 8.5 (8.5-10.1) mg/dL Total Bilirubin 0.3 (0.2-1.0) mg/dL AST 30 (15-37) U/L ALT 73 (12-78) U/L Alkaline Phosphatase 108 (46-116) U/L Total Protein 7.5 (6.4-8.2) g/dL Albumin 3.7 (3.4-5.0) g/dL Globulin 3.8 H (2.3-3.5) g/dL Albumin/Globulin Ratio 1.0 L (1.2-2.2) Urine Color Urine Appearance Urine pH (4.5-8.0) Ur Specific [place] (1.008-1.030) Urine Protein (NEGATIVE) mg/dL Urine Glucose (UA) (NEGATIVE) mg/dL Urine Ketones (NEGATIVE) mg/dL Urine Occult Blood (NEGATIVE) Urine Nitrite (NEGATIVE) Urine Bilirubin (NEGATIVE) Urine Urobilinogen (NORMAL) mg/dL Ur Leukocyte Esterase (NEGATIVE) Urine RBC (0-5) Urine WBC (0-5) Ur Epithelial Cells Amorphous Sediment Urine Bacteria Urine Mucus 04/27/17 Range/Units 14:43 WBC (4.5-11.0) K/uL RBC (3.30-5.50) M/uL Hgb (12.0-15.0) g/dL Hct (36.0-48.0) % MCV (80-98) fL MCH (27-31) pg MCHC (32-36) % Plt Count (150-400) K/uL Neut % (Auto) (36-66) % Lymph % (Auto) (24-44) % [place] % (Auto) (2-6) % Eos % (Auto) (2-4) % Baso % (Auto) (0-1) % Puncture Site ABG pH (7.350-7.450) ABG pCO2 (35.0-42.0) mmHg ABG pO2 (75.0-100.0) mmHg ABG HCO3 (22.0-26.0) mmol/L ABG Total CO2 (21.0-25.0) mmol/L ABG O2 Saturation (95.0-98.0) % ABG O2 Content (15.0-23.0) %vol ABG Base Excess mm/L ABG Hemoglobin (12.0-16.0) g/dL ABG Oxyhemoglobin % ABG Carboxyhemoglobin (0.0-1.6) % ABG Methemoglobin % Farhad Test O2 Delivery Device Sodium (140-148) mmol/L Potassium (3.6-5.2) mmol/L Chloride (100-108) mmol/L Carbon Dioxide (21-32) mmol/L Anion Gap (5.0-14.0) mmol/L BUN (7-18) mg/dL Creatinine (0.6-1.0) mg/dL Est Cr Clr Drug Dosing mL/min Estimated GFR (MDRD) (>60) Glucose (74-106) mg/dL Calcium (8.5-10.1) mg/dL Total Bilirubin (0.2-1.0) mg/dL AST (15-37) U/L ALT (12-78) U/L Alkaline Phosphatase (46-116) U/L Total Protein (6.4-8.2) g/dL Albumin (3.4-5.0) g/dL Globulin (2.3-3.5) g/dL Albumin/Globulin Ratio (1.2-2.2) Urine Color Yellow Urine Appearance Clear Urine pH 6.0 (4.5-8.0) Ur Specific [place] 1.015 (1.008-1.030) Urine Protein Trace (NEGATIVE) mg/dL Urine Glucose (UA) Normal (NEGATIVE) mg/dL Urine Ketones Negative (NEGATIVE) mg/dL Urine Occult Blood Negative (NEGATIVE) Urine Nitrite Negative (NEGATIVE) Urine Bilirubin Negative (NEGATIVE) Urine Urobilinogen Normal (NORMAL) mg/dL Ur Leukocyte Esterase Negative (NEGATIVE) Urine RBC Not seen (0-5) Urine WBC 0-5 (0-5) Ur Epithelial Cells Few Amorphous Sediment Rare Urine Bacteria Few Urine Mucus Moderate Result Diagrams: 04/27/17 13:45 04/27/17 13:45 Imaging Impressions Last 24 hrs: CXR - images personally reviewed - lungs are clear with no mass, infiltrate, chf or effusion. Mild hyperinflation. *Q Meaningful Use (ADM) - VTE *Q VTE Criteria *Q: - VTE Risk Assess *Q Each Risk Factor Represents 1 Point: Age 41 - 59 years, Obesity ( BMI > 25 kg/m2 ), Abnormal Pulmonary Function (COPD) Total Score 1 Point Risk Factors: 3 Each Risk Factor Represents 2 Points: None Total Score 2 Point Risk Factors: 0 Each Risk Factor Represents 3 Points: None Total Score 3 Point Risk Factors: 0 Each Risk Factor Represents 5 Points: None Total Score 5 Point Risk Factors: 0 Venous Thromboembolism Risk Factor Score *Q: 3 - Stroke *Q Stroke Criteria *Q: - AMI *Q AMI Criteria *Q: - Problem List (1) Bronchitis SNOMED Code(s): 75458217 ICD Code: J40 - BRONCHITIS, NOT SPECIFIED ACUTE OR CHRONIC Status: Acute Current Visit: Yes (2) COPD exacerbation SNOMED Code(s): 830721243 ICD Code: J44.1 - CHRONIC OBSTRUCTIVE PULMONARY DISEASE W (ACUTE) EXACERBATION Status: Acute Current Visit: Yes (3) Tobacco dependence SNOMED Code(s): 80201068 ICD Code: F17.200 - NICOTINE DEPENDENCE, UNSPECIFIED, UNCOMPLICATED Status : Chronic Current Visit: Yes Problem List Initiated/Reviewed/Updated: Yes Orders Last 24hrs: Active Orders 24 hr Category Date Time Status Patient Status Manage Transfer [TRANSFER] Routine ADT 04/27/17 15:44 Ordered RT Aerosol Therapy [RC] ASDIRECTED Care 04/27/17 13:32 Active RT Aerosol Therapy [RC] ASDIRECTED Care 04/27/17 14:30 Active Doxycycline [Vibramycin] 100 mg Med 04/27/17 15:45 Ordered Sodium Chloride 0.9% [Normal Saline] 100 ml IV Q12HR Sodium Chloride 0.9% [Normal Saline] 1,000 ml Med 04/27/17 13:45 Active IV ASDIRECTED Resuscitation Status Routine Resus Stat 04/27/17 15:46 Ordered Medication Orders Sodium Chloride (Normal Saline) 1,000 mls @ 250 mls/hr IV ASDIRECTED EVELYN Last Admin: 04/27/17 13:48 Dose: 250 mls/hr Doxycycline Hyclate 100 mg/ (Sodium Chloride) 100 mls @ 100 mls/hr IV Q12HR EVELYN Assessment/Plan Comment:: Assessment and plan - Acute bronchitis with acute exacerbation of COPD - cough and subjective fevers without significant symptoms to suggest viral infection. She has hypoxic respiratory failure and significant wheezing. She is very symptomatic, even at rest. She is not safe for outpatient management and has been getting worse despite outpatient steroids. -IV Solu-Medrol -Doxycycline -Scheduled and as needed nebulizers -Supplement oxygen as needed -Symptomatically management -Sputum culture if able Tobacco dependence - encourage cessation. Does not want nicotine replacement. Maintenance issues - - DVT prophylaxis - SCD's - GI prophylaxis - not indicated - Nutrition - Regular - Jarvis catheter - not indicated CODE STATUS - FULL CODE Admission justification - This patient will be admitted for inpatient services and is medically appropriate meeting medical necessity for inpatient admission as outlined in my documentation. I reasonably expect the patient will require inpatient services that span a period time over 2 midnights. I reasonably expect this patient to be discharged or transferred within 96 hours after admission to the [facility]. Disposition - anticipate discharge to home after the hospital stay Primary care physician - Lauren Nunez M.D.
[2017-04-27] MEDS: Doxycycline 100 MG in Sodium Chloride 0.9% 100 ML IV SCH (16:03)
[2017-04-27] MEDS ORDERED: Benzonatate 100 MG Cap PO PRN (16:28)
[2017-04-27] MEDS ORDERED: oxyCODONE 5 MG Tab PO PRN (16:28)
[2017-04-27] MEDS ORDERED: Acetaminophen 325 MG Tab PO PRN (16:28)
[2017-04-27] MEDS ORDERED: Albuterol/Ipratropium 3.0-0.5 MG/3 ML Neb Soln NEB SCH (16:28)
[2017-04-27] MEDS ORDERED: Polyethylene Glycol 3350 Powder 17 GM Packet PO PRN (16:28)
[2017-04-27] MEDS ORDERED: Ondansetron 4 MG Tab.DIS PO PRN (16:28)
[2017-04-27] MEDS: Sodium Chloride 0.9% 1,000 ML IV SCH (17:54)
[2017-04-27] MEDS: Albuterol 0.083% 2.5 MG/3 ML Neb Soln NEB PRN (18:25)
[2017-04-27] MEDS: Venlafaxine 75 MG Tab PO SCH ×2 (19:18→20:17)
[2017-04-27] MEDS: methylPREDNISolone Sodium Succinate 125 MG/2 ML SDV IVPUSH SCH (19:20)
[2017-04-27] MEDS ORDERED: methylPREDNISolone Sodium Succinate 125 MG/2 ML SDV IVPUSH SCH (19:30)
[2017-04-27] MEDS ORDERED: Venlafaxine 75 MG Tab PO SCH (21:00)
[2017-04-27] MEDS: Albuterol/Ipratropium 3.0-0.5 MG/3 ML Neb Soln NEB SCH (21:22)
[2017-04-28] MEDS: guaiFENesin/Dextromethorphan 100-10 MG/5 ML Soln 10 ML Cup PO PRN (01:22)
[2017-04-28] MEDS: Albuterol 0.083% 2.5 MG/3 ML Neb Soln NEB PRN ×2 (01:22→18:56)
[2017-04-28] MEDS: methylPREDNISolone Sodium Succinate 125 MG/2 ML SDV IVPUSH SCH ×4 (01:22→20:25)
[2017-04-28] MEDS: Sodium Chloride 0.9% 1,000 ML IV SCH ×2 (01:24→09:26)
[2017-04-28] MEDS: Doxycycline 100 MG in Sodium Chloride 0.9% 100 ML IV SCH (03:53)
[2017-04-28] MEDS: Venlafaxine 75 MG Tab PO SCH ×2 (07:19→18:54)
[2017-04-28] MEDS: Albuterol/Ipratropium 3.0-0.5 MG/3 ML Neb Soln NEB SCH ×4 (07:21→20:25)
[2017-04-28] MEDS ORDERED: Magnesium Sulfate/Water 2 GM in Premix Bag 1 BAG IV ONE (10:00)
--- NOTE | 2017-04-28 12:02 | PCM.PN ---
- General Info Date of Service: 04/28/17 Functional Status: Reports: Pain Controlled, Tolerating Diet - Review of Systems Pulmonary: Reports: Shortness of Breath, Cough Systems Review Comment:: No acute events overnight. Feels less short of breath today than yesterday. No fevers overnight. No chest pain or chest tightness. Still requiring supplemental oxygen. Still has significant wheezing. Tolerating current medications. - Patient Data Vitals - Most Recent: Last Vital Signs Temp 36.7 C 04/28/17 10:44 Pulse 102 H 04/28/17 10:48 Resp 18 04/28/17 10:44 BP 130/62 04/28/17 10:44 Pulse Ox 91 L 04/28/17 10:44 Weight - Most Recent: 81.374 kg I&O - Last 24 Hours: Intake & Output 04/27/17 04/28/17 04/28/17 22:59 06:59 14:59 Intake Total 1500 2093 990 Output Total 900 900 Balance 600 1193 990 Lab Results Last 24 Hours: Laboratory Results - last 24 hr 04/27/17 04/28/17 04/28/17 Range/Units 16:28 05:11 05:11 WBC 20.0 H (4.5-11.0) K/uL RBC 4.47 (3.30-5.50) M/uL Hgb 13.3 (12.0-15.0) g/dL Hct 41.4 (36.0-48.0) % MCV 93 (80-98) fL MCH 30 (27-31) pg MCHC 32 (32-36) % Plt Count 255 (150-400) K/uL Sodium 143 (140-148) mmol/L Potassium 3.9 (3.6-5.2) mmol/L Chloride 108 (100-108) mmol/L Carbon Dioxide 27 (21-32) mmol/L Anion Gap 7.6 (5.0-14.0) mmol/L BUN 16 (7-18) mg/dL Creatinine 0.7 (0.6-1.0) mg/dL Est Cr Clr Drug Dosing 77.49 mL/min Estimated GFR (MDRD) > 60 (>60) Glucose 242 H (74-106) mg/dL Calcium 8.3 L (8.5-10.1) mg/dL Magnesium 1.7 L (1.8-2.4) mg/dL Med Orders - Current: Current Medications Acetaminophen (Tylenol) 650 mg PO Q4H PRN PRN Reason: Pain (Mild 1-3)/fever Albuterol (Proventil Neb Soln) 2.5 mg NEB Q2H PRN PRN Reason: Shortness Of Breath/wheezing Last Admin: 04/28/17 01:22 Dose: 2.5 mg Albuterol/Ipratropium (Duoneb 3.0-0.5 Mg/3 Ml) 3 ml NEB QIDRT [facility] Last Admin: 04/28/17 10:47 Dose: 3 ml Benzonatate (Tessalon Perles) 100 mg PO TID PRN PRN Reason: Cough Doxycycline Hyclate (Vibramycin) 100 mg PO BID [facility] Guaifenesin/Dextromethorphan (Robitussin Dm) 10 ml PO Q4H PRN PRN Reason: Cough Last Admin: 04/28/17 01:22 Dose: 10 ml Methylprednisolone Sodium Succinate (Solu-Medrol) 62.5 mg IVPUSH Q6H [facility] Last Admin: 04/28/17 07:43 Dose: 62.5 mg Ondansetron HCl (Zofran Odt) 4 mg PO Q6H PRN PRN Reason: Nausea able to take PO Oxycodone HCl (Oxycodone) 5 mg PO Q4H PRN PRN Reason: Pain (moderate 4-6) Polyethylene Glycol (Miralax) 17 gm PO DAILY PRN PRN Reason: Constipation Senna/Docusate Sodium (Senna Plus) 1 tab PO BID PRN PRN Reason: Constipation Venlafaxine HCl (Effexor) 150 mg PO 0700,1900 [facility] Last Admin: 04/28/17 07:19 Dose: 150 mg Discontinued Medications Albuterol (Proventil Neb Soln) 2.5 mg NEB ONETIME ONE Stop: 04/27/17 13:32 Last Admin: 04/27/17 13:40 Dose: 2.5 mg Albuterol (Proventil Neb Soln) 2.5 mg NEB ONETIME ONE Stop: 04/27/17 14:30 Last Admin: 04/27/17 14:43 Dose: 2.5 mg Albuterol/Ipratropium (Duoneb 3.0-0.5 Mg/3 Ml) 3 ml NEB QID [facility] Last Admin: 04/27/17 17:44 Dose: Not Given Sodium Chloride (Normal Saline) 1,000 mls @ 250 mls/hr IV ASDIRECTED [facility] Last Admin: 04/27/17 13:48 Dose: 250 mls/hr Doxycycline Hyclate 100 mg/ (Sodium Chloride) 100 mls @ 100 mls/hr IV Q12H [facility] Last Admin: 04/28/17 03:53 Dose: 100 mls/hr Sodium Chloride (Normal Saline) 1,000 mls @ 125 mls/hr IV ASDIRECTED [facility] Last Admin: 04/28/17 09:26 Dose: 125 mls/hr Magnesium Sulfate 2 gm/ Premix 50 mls @ 25 mls/hr IV ONETIME ONE Stop: 04/28/17 11:59 Last Admin: 04/28/17 10:10 Dose: 25 mls/hr Methylprednisolone Sodium Succinate (Solu-Medrol) 125 mg IVPUSH ONETIME ONE Stop: 04/27/17 13:33 Last Admin: 04/27/17 13:47 Dose: 125 mg Methylprednisolone Sodium Succinate (Solu-Medrol) 62.5 mg IVPUSH Q6H [facility] Venlafaxine HCl (Effexor) 150 mg PO BID [facility] Venlafaxine HCl (Effexor) 150 mg PO BID [facility] Last Admin: 04/27/17 20:17 Dose: Not Given - Exam Quality Assessment: Supplemental Oxygen General: Alert, Oriented, Cooperative, No Acute Distress Neck: Supple Lungs: Normal Respiratory Effort, Wheezing (diffuse expiratory ) Cardiovascular: Regular Rate, Regular Rhythm GI/Abdominal Exam: Soft, No Distention Extremities: No Pedal Edema. No: Increased Warmth Skin: Warm, Dry Psy/Mental Status: Alert, Normal Affect - Problem List & Annotations (1) Bronchitis SNOMED Code(s): 64309147 Code(s): J40 - BRONCHITIS, NOT SPECIFIED ACUTE OR CHRONIC Status: Acute Current Visit: Yes (2) COPD exacerbation SNOMED Code(s): 240399688 Code(s): J44.1 - CHRONIC OBSTRUCTIVE PULMONARY DISEASE W (ACUTE) EXACERBATION Status: Acute Current Visit: Yes (3) Tobacco dependence SNOMED Code(s): 86436551 Code(s): F17.200 - NICOTINE DEPENDENCE, UNSPECIFIED, UNCOMPLICATED Status: Chronic Current Visit: Yes - Problem List Review Problem List Initiated/Reviewed/Updated: Yes - My Orders Last 24 Hours: My Active Orders 04/27/17 15:46 Resuscitation Status Routine 04/27/17 16:28 Patient Status [ADT] Routine Intake and Output [RC] QSHIFT Notify Provider Vital Signs [RC] ASDIRECTED Oxygen Therapy [RC] PRN RT Aerosol Therapy [RC] ASDIRECTED Up ad Krystin [RC] ASDIRECTED VTE/DVT Education [RC] Per Unit Routine Vital Signs [RC] Q4H Acetaminophen [Tylenol] 650 mg PO Q4H PRN Albuterol [Proventil Neb Soln] 2.5 mg NEB Q2H PRN Benzonatate [Tessalon Perles] 100 mg PO TID PRN Dextromethorphan/guaiFENesin [Robitussin DM] 10 ml PO Q4H PRN Docusate Sodium/Sennosides [Senna Plus] 1 tab PO BID PRN Ondansetron [Zofran ODT] 4 mg PO Q6H PRN Polyethylene Glycol 3350 [MiraLAX] 17 gm PO DAILY PRN oxyCODONE 5 mg PO Q4H PRN Sequential Compression Device [OM.PC] Per Unit Routine 04/27/17 20:00 methylPREDNISolone Sod Succ [Solu-MEDROL] 62.5 mg IVPUSH Q6H 04/27/17 21:00 Albuterol/Ipratropium [DuoNeb 3.0-0.5 MG/3 ML] 3 ml NEB QIDRT 04/27/17 Dinner Regular Diet [DIET] 04/28/17 07:00 Venlafaxine [Effexor] 150 mg PO 0700,1900 04/28/17 12:01 Convert IV to Saline Lock [OM.PC] Routine 04/28/17 21:00 Doxycycline [Vibramycin] 100 mg PO BID - Plan Plan:: Assessment and plan - Acute bronchitis with acute exacerbation of COPD - slightly better today but still requiring supplemental oxygen. Still significant wheezing. Likely she feels better other than weakness. -IV Solu-Medrol, transition to prednisone tomorrow -Doxycycline -Scheduled and as needed nebulizers -Supplement oxygen as needed -Symptomatic management Tobacco dependence - encourage cessation. Does not want nicotine replacement. Maintenance issues - - DVT prophylaxis - SCD's - GI prophylaxis - not indicated - Nutrition - Regular Disposition - anticipate discharge to home after the hospital stay, hopefully tomorrow if we can wean her off supplemental oxygen cory Nunez M.D.
[2017-04-28] MEDS: Doxycycline 100 MG Cap PO SCH (20:26)
[2017-04-29] MEDS: Albuterol 0.083% 2.5 MG/3 ML Neb Soln NEB PRN (01:23)
[2017-04-29] MEDS: guaiFENesin/Dextromethorphan 100-10 MG/5 ML Soln 10 ML Cup PO PRN (01:23)
[2017-04-29] MEDS: methylPREDNISolone Sodium Succinate 125 MG/2 ML SDV IVPUSH SCH ×2 (01:36→08:20)
[2017-04-29] MEDS: Venlafaxine 75 MG Tab PO SCH (06:22)
[2017-04-29] MEDS: Albuterol/Ipratropium 3.0-0.5 MG/3 ML Neb Soln NEB SCH ×2 (07:40→10:51)
[2017-04-29] MEDS: Doxycycline 100 MG Cap PO SCH (08:21)
[2017-04-29] MEDS ORDERED: predniSONE 20 MG Tab PO SCH (09:30)
[2017-04-29 11:09] VITALS: BP 136/67
--- NOTE | 2017-04-29 11:46 | PCM.DCSUM1 ---
Discharge Summary - Hospital Course Brief History: 56 year old female with tobacco dependence and COPD who presented with cough and shortness of breath or worsening despite outpatient steroid therapy. She was admitted for management of a COPD exacerbation and bronchitis. - Discharge Data Discharge Date: 04/29/17 Discharge Disposition: Home, Self-Care 01 Condition: Fair - Discharge Diagnosis/Problem(s) (1) Bronchitis SNOMED Code(s): 39769000 ICD Code: J40 - BRONCHITIS, NOT SPECIFIED ACUTE OR CHRONIC Status: Acute (2) COPD exacerbation SNOMED Code(s): 438596685 ICD Code: J44.1 - CHRONIC OBSTRUCTIVE PULMONARY DISEASE W (ACUTE) EXACERBATION Status: Acute (3) Tobacco dependence SNOMED Code(s): 85386240 ICD Code: F17.200 - NICOTINE DEPENDENCE, UNSPECIFIED, UNCOMPLICATED Status : Chronic - Patient Summary/Data Hospital Course: Kay presented to the emergency room with progressive cough and shortness of breath despite outpatient management with oral steroids. Workup in the emergency room was suggestive of acute bronchitis with a COPD exacerbation and hypoxic respiratory failure. She was transitioned to IV steroids and started on antibiotics at the time of admission to the hospital. Over the next 48 hours she had slow but steady improvement in her respiratory status. Her wheezing slowly improved. We were able to slowly wean her off the supplemental oxygen. She has been able to improve her functional status each day and can ambulate further and with less symptoms. She has tolerated the doxycycline well but we have not determined a causative bacteria. She tolerated the transition to oral steroids on the morning of discharge. She is off supplemental oxygen at this time and I believe she is safe for outpatient management. She will complete 2 more days of high-dose prednisone followed by 5 days of lower dose prednisone. She will complete 5 more days of antibiotics. She will follow up early in the week to ensure that her respiratory status is improving and for clearance to return to work. - Patient Instructions Diet: Regular Diet as Tolerated Activity: As Tolerated Driving: May Drive Today Showering/Bathing: May Shower Notify Provider of: Fever Other/Special Instructions: 1. You were in the hospital for management of acute bronchitis with a COPD exacerbation. You have been improving with antibiotic and steroid therapy. I recommend an additional doses of doxycycline. You should take 100 mg twice daily with food. Your next dose is due tonight. I also recommend prednisone 20 mg taken twice daily with food for 5 more doses ( this afternoon, Sunday and Sunday) followed by 20 mg taken once daily for 5 days. You should continue to use your inhaler and nebulizers as previously prescribed. 2. I would recommend that you not work until after you have a follow-up appointment with Lauren Muñoz and are cleared to return to work. I would anticipate that you should be able to return to work within the next week or so. 3. Please seek medical attention if you develop fever greater than 101, have sudden worsening of your shortness of breath, or if you develop chest pain/ tightness. - Discharge Plan Prescriptions/Med Rec: Doxycycline Calcium [IMW: Doxycycline] 100 mg PO BID #10 capsule Prednisone [IJD: predniSONE] 20 mg PO ASDIRECTED #10 tablet Home Medications: Home Meds Venlafaxine HCl 150 mg PO BID 10/04/13 [History] Albuterol/Ipratropium [Combivent Respimat] 1 puff IH QID 07/16/14 [History] Albuterol/Ipratropium [DuoNeb 3.0-0.5 MG/3 ML] 3 ml IH Q6H PRN 09/13/15 [History ] Doxycycline Calcium [IMW: Doxycycline] 100 mg PO BID #10 capsule 04/29/17 [Rx] Prednisone [IJD: predniSONE] 20 mg PO ASDIRECTED #10 tablet 04/29/17 [Rx] Patient Handouts: Acute Bronchitis, [id number], Doxycycline tablets or capsules, Smoking Cessation, Tips for Success Referrals: Misti Muñoz PA [Primary Care Provider] - (f/u in 3-5 days - follow-up hospital stay for bronchitis and COPD exacerbation) - Discharge Summary/Plan Comment DC Time >30 min.: No (25) - Patient Data Vitals - Most Recent: Last Vital Signs Temp 37.2 C 04/29/17 11:00 Pulse 97 04/29/17 11:00 Resp 18 04/29/17 11:00 BP 136/67 04/29/17 11:00 Pulse Ox 90 L 04/29/17 11:00 Weight - Most Recent: 81.374 kg I&O - Last 24 hours: Intake & Output 04/28/17 04/29/17 04/29/17 22:59 06:59 14:59 Intake Total 740 550 480 Output Total 1000 1825 Balance -260 550 -134 Med Orders - Current: Current Medications Acetaminophen (Tylenol) 650 mg PO Q4H PRN PRN Reason: Pain (Mild 1-3)/fever Albuterol (Proventil Neb Soln) 2.5 mg NEB Q2H PRN PRN Reason: Shortness Of Breath/wheezing Last Admin: 04/29/17 01:23 Dose: 2.5 mg Albuterol/Ipratropium (Duoneb 3.0-0.5 Mg/3 Ml) 3 ml NEB QIDRT [facility] Last Admin: 04/29/17 10:51 Dose: 3 ml Benzonatate (Tessalon Perles) 100 mg PO TID PRN PRN Reason: Cough Doxycycline Hyclate (Vibramycin) 100 mg PO BID [facility] Last Admin: 04/29/17 08:21 Dose: 100 mg Guaifenesin/Dextromethorphan (Robitussin Dm) 10 ml PO Q4H PRN PRN Reason: Cough Last Admin: 04/29/17 01:23 Dose: 10 ml Ondansetron HCl (Zofran Odt) 4 mg PO Q6H PRN PRN Reason: Nausea able to take PO Oxycodone HCl (Oxycodone) 5 mg PO Q4H PRN PRN Reason: Pain (moderate 4-6) Polyethylene Glycol (Miralax) 17 gm PO DAILY PRN PRN Reason: Constipation Prednisone (Prednisone) 20 mg PO BIDMEALS [facility] Last Admin: 04/29/17 10:54 Dose: 20 mg Senna/Docusate Sodium (Senna Plus) 1 tab PO BID PRN PRN Reason: Constipation Venlafaxine HCl (Effexor) 150 mg PO 0700,1900 [facility] Last Admin: 04/29/17 06:22 Dose: 150 mg Discontinued Medications Albuterol (Proventil Neb Soln) 2.5 mg NEB ONETIME ONE Stop: 04/27/17 13:32 Last Admin: 04/27/17 13:40 Dose: 2.5 mg Albuterol (Proventil Neb Soln) 2.5 mg NEB ONETIME ONE Stop: 04/27/17 14:30 Last Admin: 04/27/17 14:43 Dose: 2.5 mg Albuterol/Ipratropium (Duoneb 3.0-0.5 Mg/3 Ml) 3 ml NEB QID [facility] Last Admin: 04/27/17 17:44 Dose: Not Given Sodium Chloride (Normal Saline) 1,000 mls @ 250 mls/hr IV ASDIRECTED [facility] Last Admin: 04/27/17 13:48 Dose: 250 mls/hr Doxycycline Hyclate 100 mg/ (Sodium Chloride) 100 mls @ 100 mls/hr IV Q12H [facility] Last Admin: 04/28/17 03:53 Dose: 100 mls/hr Sodium Chloride (Normal Saline) 1,000 mls @ 125 mls/hr IV ASDIRECTED [facility] Last Admin: 04/28/17 09:26 Dose: 125 mls/hr Magnesium Sulfate 2 gm/ Premix 50 mls @ 25 mls/hr IV ONETIME ONE Stop: 04/28/17 11:59 Last Admin: 04/28/17 10:10 Dose: 25 mls/hr Methylprednisolone Sodium Succinate (Solu-Medrol) 125 mg IVPUSH ONETIME ONE Stop: 04/27/17 13:33 Last Admin: 04/27/17 13:47 Dose: 125 mg Methylprednisolone Sodium Succinate (Solu-Medrol) 62.5 mg IVPUSH Q6H [facility] Methylprednisolone Sodium Succinate (Solu-Medrol) 62.5 mg IVPUSH Q6H [facility] Last Admin: 04/29/17 08:20 Dose: Not Given Venlafaxine HCl (Effexor) 150 mg PO BID [facility] Venlafaxine HCl (Effexor) 150 mg PO BID [facility] Last Admin: 04/27/17 20:17 Dose: Not Given - Exam Quality Assessment: Denies: Supplemental Oxygen General: Reports: Alert, Oriented, Cooperative, No Acute Distress Neck: Reports: Supple Lungs: Reports: Normal Respiratory Effort, Wheezing (mild diffuse wheezing) Cardiovascular: Reports: Regular Rate, Regular Rhythm GI/Abdominal Exam: Soft, No Distention Extremities: No Pedal Edema Psy/Mental Status: Reports: Alert, Normal Affect *Q Meaningful Use (DIS) - VTE *Q VTE Criteria *Q: - Stroke *Q Stroke Criteria *Q: - AMI *Q AMI Criteria *Q:
== END 2017-04-29 12:55 | disposition home or self-care (01) | DRG 190 ==
LOC: JP.ED 12:38 → JP.MS 15:44
PROVIDERS: ADMIT Internal Medicine; ATTEND Internal Medicine
DX: J44.0 Chronic obstructive pulmonary disease with (acute) lower respiratory infection (principal); J96.91 Respiratory failure, unspecified with hypoxia; J20.9 Acute bronchitis, unspecified; J44.1 Chronic obstructive pulmonary disease with (acute) exacerbation; F17.210 Nicotine dependence, cigarettes, uncomplicated; F41.9 Anxiety disorder, unspecified; F32.9 Major depressive disorder, single episode, unspecified; Z87.01 Personal history of pneumonia (recurrent); Z88.6 Allergy status to analgesic agent; Z88.1 Allergy status to other antibiotic agents; Z88.2 Allergy status to sulfonamides; Z88.8 Allergy status to other drugs, medicaments and biological substances; Z79.52 Long term (current) use of systemic steroids
CPT/HCPCS: 36415; 36600; 71020; 71020-26; 80048; 80053; 81001; 82803; 83735; 85025; 85027; 94640; 94667; 96361; 96365; 96375; 99285-25; A9270-GY; J2930; J3475; J7030; J7040; J7620

== ENCOUNTER 2017-05-10 10:59 | Emergency (ER) | payer OTHER ==
--- NOTE | 2017-05-10 11:51 | CR ---
Two-view chest Comparison: 27 April 2017. There has been interval development of a right upper lobe infiltrate. The remaining lung owens are c lear. The heart and vascular structures are stable. Impression: 1. Right upper lobe pneumonia. Follow-up is recommended to confirm resolution.
[2017-05-10] MEDS ORDERED: Sodium Chloride 0.9% 10 ML Syringe FLUSH PRN (11:59)
[2017-05-10] MEDS ORDERED: Ketorolac 30 MG/ML SDV IVPUSH ONE (11:59)
[2017-05-10] MEDS ORDERED: Levofloxacin/Dextrose 5%-Water 750 MG in Premix Bag 1 BAG IV ONE (11:59)
[2017-05-10] MEDS ORDERED: methylPREDNISolone Sodium Succinate 125 MG/2 ML SDV IVPUSH ONE (11:59)
[2017-05-10] MEDS ORDERED: Albuterol/Ipratropium 3.0-0.5 MG/3 ML Neb Soln NEB ONE (11:59)
--- NOTE | 2017-05-10 12:09 | EDM.PDOC ---
ED HPI GENERAL MEDICAL PROBLEM - General Chief Complaint: Respiratory Problem Stated Complaint: COUGH, FEVER Time Seen by Provider: 05/10/17 11:20 Source of Information: Reports: Patient, Family History Limitations: Reports: No Limitations - History of Present Illness INITIAL COMMENTS - FREE TEXT/NARRATIVE: 56-year-old female diagnosed with right upper lobe pneumonia yesterday in the clinic was started on Levaquin and prednisone. She was rechecked at the clinic today and didn't feel she was improving so's was sent over to the emergency room. She has not taken her prednisone or Levaquin for today. She is afebrile. She arrives with an O2 saturation of 93% on room air while at rest. She would like to avoid being transferred to another hospital if possible, we are full here. Onset: Gradual (Worsening over the last several days) Severity: Moderate Worsens with: Reports: Other (Activity, she is also continuing to smoke) Associated Symptoms: Reports: Malaise, Weakness. Denies: Fever/Chills lung Pain Score (Numeric/FACES): 6 - Related Data Allergies Allergy/AdvReac Type Severity Reaction Status Date / Time aspirin Allergy Cannot Verified 05/10/17 11:15 Remember bupropion HCl Allergy Other Verified 05/10/17 11:15 [From Wellbutrin] ceftriaxone sodium Allergy Respiratory Verified 05/10/17 11:15 [From Rocephin] Distress Sulfa (Sulfonamide Allergy Hives Verified 05/10/17 11:15 Antibiotics) Home Meds: Home Meds Venlafaxine HCl 150 mg PO BID 10/04/13 [History] Albuterol/Ipratropium [Combivent Respimat] 1 puff IH QID 07/16/14 [History] Albuterol/Ipratropium [DuoNeb 3.0-0.5 MG/3 ML] 3 ml IH Q6H PRN 09/13/15 [History ] Levofloxacin [Levofloxacin] 750 mg PO DAILY 05/10/17 [History] Prednisone [IJD: predniSONE] 60 mg PO ASDIRECTED 05/10/17 [History] Past Medical History Respiratory History: Reports: Asthma, COPD, Pneumonia, Recurrent M[employer] MOLDS History: Reports: Other (See Below) Other OB/BYN History: ovarian cyst Musculoskeletal History: Reports: Fracture Psychiatric History: Reports: Anxiety, Depression - Infectious Disease History Infectious Disease History: Reports: Chicken Pox, Measles - Past Surgical History Female Surgical History: Reports: Oophorectomy Other Musculoskeletal Surgeries/Procedures:: right knee surgery Social & Family History - Family History Family Medical History: Noncontributory OBGYN: Reports: Fibroids Musculoskeletal: Reports: Arthritis Psychiatric: Reports: Anxiety, Depression - Tobacco Use Smoking Status *Q: Current Some Day Smoker Years of Tobacco use: 36 Packs/Tins Daily: 0 Used Tobacco, but Quit: No Month Tobacco Last Used: 07/29 Second Hand Smoke Exposure: No - Caffeine Use Caffeine Use: Reports: None - Alcohol Use Days Per Week of Alcohol Use: 0 - Recreational Drug Use Recreational Drug Use: No ED ROS GENERAL - Review of Systems Review Of Systems: See Below Constitutional: Reports: Malaise, Weakness. Denies: Fever, Chills HEENT: Denies: Throat Pain Respiratory: Reports: Shortness of Breath, Pleuritic Chest Pain Cardiovascular: Reports: Chest Pain (With breathing, right upper chest and right back) GI/Abdominal: Denies: Nausea Skin: Reports: No Symptoms Neurological: Reports: No Symptoms Psychiatric: Reports: No Symptoms ED EXAM, GENERAL - Physical Exam Exam: See Below Exam Limited By: No Limitations General Appearance: Alert, No Apparent Distress Respiratory/Chest: No Respiratory Distress, Other (Diffuse expiratory wheezing) Cardiovascular: Regular Rate, Rhythm Neurological: Alert, Oriented Skin Exam: Warm, Dry Course - Vital Signs Last Recorded V/S: Last Vital Signs Temp 98.6 F 05/10/17 11:12 Pulse 90 05/10/17 13:14 Resp 20 05/10/17 13:14 BP 122/59 L 05/10/17 13:14 Pulse Ox 95 05/10/17 13:14 - Orders/Labs/Meds Orders: Active Orders 24 hr Category Date Time Status RT Aerosol Therapy [RC] ASDIRECTED Care 05/10/17 12:00 Active Saline Lock Insert [OM.PC] Routine Oth 05/10/17 11:59 Ordered Meds: Medications Discontinued Medications Generic Name Dose Route Start Last Admin Trade Name Freq PRN Reason Stop Dose Admin Albuterol/Ipratropium 3 ml 05/10/17 11:59 05/10/17 12:08 Duoneb 3.0-0.5 Mg/3 Ml NEB 05/10/17 12:00 3 ml ONETIME ONE Administration Levofloxacin/Dextrose 750 mg/ 150 mls @ 100 mls/hr 05/10/17 11:59 05/10/17 12 :09 Premix IV 05/10/17 13:28 100 mls/hr ONETIME ONE Administration Ketorolac Tromethamine 30 mg 05/10/17 11:59 05/10/17 12:08 Toradol IVPUSH 05/10/17 12:00 30 mg ONETIME ONE Administration Methylprednisolone Sodium Succinate 125 mg 05/10/17 11:59 05/10/17 12:08 Solu-Medrol IVPUSH 05/10/17 12:00 125 mg ONETIME ONE Administration Sodium Chloride 10 ml 05/10/17 11:59 05/10/17 12:08 Saline Flush FLUSH 10 ml ASDIRECTED PRN Administration Keep Vein Open - Re-Assessments/Exams Free Text/Narrative Re-Assessment/Exam: 05/10/17 12:09 Two-view chest x-ray was obtained, compared to yesterday's x-ray and is not worse. Patient would like to avoid being hospitalized. An IV was started, she was given 30 mg of Toradol IV for her pleuritic pain, on and 25 mg of Solu- Medrol and 750 mg of IV Levaquin. She will take her 60 mg of prednisone tonight at supper and start the rest of her oral medications as prescribed tomorrow morning. 05/10/17 13:22 Patient responded well to the treatment. She was feeling better prior to discharge. I'm going to ask her to take her evening dose of prednisone with supper, and restart both the Levaquin and prednisone tomorrow morning with breakfast. She can use nebulizers as needed for symptoms and return to the emergency room if not improving. 05/10/17 13:49 She also seemed to respond well to the Toradol, so was given 20 additional doses to take 3 times a day until she improves Departure - Departure Time of Disposition: 14:00 Disposition: Home, Self-Care 01 Condition: Fair Clinical Impression: COPD exacerbation Pneumonia Qualifiers: Pneumonia type: due to unspecified organism Laterality: right Lung location: upper lobe of lung Qualified Code(s): J18.1 - Lobar pneumonia, unspecified organism - Discharge Information Instructions: Community-Acquired Pneumonia, Adult, [id number] Referrals: Misti Muñoz PA [Primary Care Provider] - Forms: ED Department Discharge Care Plan Goals: Take your prednisone dose tonight with her evening meal, and resume both prednisone and Levaquin tomorrow morning with breakfast. Use nebulizers often if needed, avoid smoking and return to the emergency room any time if worsening or consider rechecking in 2-3 days if not improving satisfactorily. - My Orders Last 24 Hours: My Active Orders 05/10/17 11:59 Saline Lock Insert [OM.PC] Routine 05/10/17 12:00 RT Aerosol Therapy [RC] ASDIRECTED - Assessment/Plan Last 24 Hours: My Active Orders 05/10/17 11:59 Saline Lock Insert [OM.PC] Routine 05/10/17 12:00 RT Aerosol Therapy [RC] ASDIRECTED
[2017-05-10 13:14] VITALS: BP 122/59
== END 2017-05-10 13:58 | disposition home or self-care (01) ==
LOC: JP.ED 10:59
DX: J44.1 Chronic obstructive pulmonary disease with (acute) exacerbation (principal); J18.9 Pneumonia, unspecified organism; Z88.2 Allergy status to sulfonamides; Z88.8 Allergy status to other drugs, medicaments and biological substances; F17.210 Nicotine dependence, cigarettes, uncomplicated
CPT/HCPCS: 71020; 96365; 96375; 99284; J1885; J1956; J2930; J7050; J7620

== ENCOUNTER 2017-07-15 17:15 | Emergency (ER) | payer OTHER ==
[2017-07-15] MEDS ORDERED: Albuterol/Ipratropium 3.0-0.5 MG/3 ML Neb Soln NEB ONE (17:24)
[2017-07-15] MEDS ORDERED: Sodium Chloride 0.9% 10 ML Syringe FLUSH PRN ×2 (18:04)
[2017-07-15] MEDS ORDERED: methylPREDNISolone Sodium Succinate 125 MG/2 ML SDV IVPUSH ONE (18:05)
--- NOTE | 2017-07-15 18:08 | EDM.PDOC ---
ED HPI GENERAL MEDICAL PROBLEM - General Chief Complaint: Respiratory Problem Stated Complaint: BREATHING PROBLEMS Time Seen by Provider: 07/15/17 17:57 Source of Information: Reports: Patient, Family, Old Records, RN Notes Reviewed History Limitations: Reports: No Limitations - History of Present Illness INITIAL COMMENTS - FREE TEXT/NARRATIVE: 56-year-old female presents emergency department day complaint of shortness of breath and cough, she has a known history of chronic obstructive pulmonary disease recently had a pneumonia in April of this year completed a course of levofloxacin as well as prednisone has breathing treatments at home which provided some relief. For this particular event she states it has been progressing over the last 3 days with cough, fever no sputum production - Related Data Allergies Allergy/AdvReac Type Severity Reaction Status Date / Time ceftriaxone sodium Allergy Severe Respiratory Verified 07/15/17 17:37 [From Rocephin] Distress aspirin Allergy Cannot Verified 07/15/17 17:37 Remember bupropion HCl Allergy Other Verified 07/15/17 17:37 [From Wellbutrin] Sulfa (Sulfonamide Allergy Hives Verified 07/15/17 17:37 Antibiotics) Home Meds: Home Meds Venlafaxine HCl 75 mg PO DAILY 10/04/13 [History] *Advair 07/15/17 [History] *Albuterol 07/15/17 [History] *Metoprolol 07/15/17 [History] Past Medical History Respiratory History: Reports: Asthma, COPD, Pneumonia, Recurrent 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) Other OB/BYN History: ovarian cyst Musculoskeletal History: Reports: Fracture Psychiatric History: Reports: Anxiety, Depression - Infectious Disease History Infectious Disease History: Reports: Chicken Pox, Measles - Past Surgical History Female Surgical History: Reports: Oophorectomy Other Musculoskeletal Surgeries/Procedures:: right knee surgery Social & Family History - Family History Family Medical History: Noncontributory OBGYN: Reports: Fibroids Musculoskeletal: Reports: Arthritis Psychiatric: Reports: Anxiety, Depression - Tobacco Use Smoking Status *Q: Unknown Ever Smoked Years of Tobacco use: 36 Packs/Tins Daily: 0 Used Tobacco, but Quit: No Month Tobacco Last Used: 07/29 Second Hand Smoke Exposure: No - Caffeine Use Caffeine Use: Reports: None - Alcohol Use Days Per Week of Alcohol Use: 0 - Recreational Drug Use Recreational Drug Use: No ED ROS GENERAL - Review of Systems Review Of Systems: See Below Constitutional: Reports: Fever, Chills HEENT: Reports: No Symptoms Respiratory: Reports: Shortness of Breath, Wheezing, Cough. Denies: Sputum Cardiovascular: Reports: No Symptoms GI/Abdominal: Reports: No Symptoms : Reports: No Symptoms Musculoskeletal: Reports: No Symptoms Skin: Reports: No Symptoms Neurological: Reports: No Symptoms ED EXAM, GENERAL - Physical Exam Exam: See Below Free Text/Narrative:: General: Female, not in any distress, alert and oriented x3 HEENT: head is atraumatic normocephalic, eyes pupils equal round reactive to light, sclera clear no conjunctivitis appreciated. Ears tympanic membranes clear and osorio landmarks and light reflex are present bilaterally canals are clear. Nose no septal deviation, nares are clear, no blood present. Mouth mucosa is moist and pink no erythema or exudate noted in soft palate, tongue is midline uvula is midline, dentition is intact. Neck: Supple no thyromegaly no tracheal deviation. Nodes: Cervical nodes subclavicular nodes nontender no palpable lymphadenopathy noted. Lungs: Breath sounds are distant does have a next story wheeze mid to lower lung owens bilaterally CV: Regular rate and rhythm S1 and S2 appreciated no murmurs rubs or gallops noted. Abdomen: Soft, nontender, no palpable masses or organomegaly appreciated, no distention no guarding bowel sounds are present, . Neuro: Cranial nerves II through XII grossly intact Skin: Warm and dry, intact Extremities: No lower extremity edema appreciated, . Course - Vital Signs Last Recorded V/S: Last Vital Signs Temp 97.5 F 07/15/17 18:45 Pulse 89 07/15/17 18:45 Resp 13 07/15/17 18:45 BP 116/61 07/15/17 18:45 Pulse Ox 93 L 07/15/17 18:45 - Orders/Labs/Meds Orders: Active Orders 24 hr Category Date Time Status Peripheral IV Care [RC] . DIRECTED Care 07/15/17 18:04 Active RT Aerosol Therapy [RC] ASDIRECTED Care 07/15/17 17:25 Active Chest 2V [CR] Urgent Exams 07/15/17 18:04 Taken Sodium Chloride 0.9% [Saline Flush] Med 07/15/17 18:04 Active 10 ml FLUSH ASDIRECTED PRN Sodium Chloride 0.9% [Saline Flush] Med 07/15/17 18:04 Active 10 ml FLUSH ASDIRECTED PRN Peripheral IV Insertion Adult [OM.PC] Urgent Oth 07/15/17 18:04 Ordered Medication Orders Sodium Chloride (Saline Flush) 10 ml FLUSH ASDIRECTED PRN PRN Reason: Keep Vein Open Last Admin: 07/15/17 18:39 Dose: 10 ml Sodium Chloride (Saline Flush) 10 ml FLUSH ASDIRECTED PRN PRN Reason: Keep Vein Open Last Admin: 07/15/17 18:39 Dose: 10 ml Labs: Laboratory Tests 07/15/17 07/15/17 07/15/17 Range/Units 18:15 18:15 18:15 WBC 7.3 (4.5-11.0) K/uL RBC 4.89 (3.30-5.50) M/uL Hgb 14.4 (12.0-15.0) g/dL Hct 44.3 (36.0-48.0) % MCV 91 (80-98) fL MCH 29 (27-31) pg MCHC 33 (32-36) % Plt Count 213 (150-400) K/uL Neut % (Auto) 69 H (36-66) % Lymph % (Auto) 19 L (24-44) % [place] % (Auto) 11 H (2-6) % Eos % (Auto) 0 L (2-4) % Baso % (Auto) 0 (0-1) % Sodium 141 (140-148) mmol/L Potassium 3.8 (3.6-5.2) mmol/L Chloride 103 (100-108) mmol/L Carbon Dioxide 27 (21-32) mmol/L Anion Gap 11.1 (5.0-14.0) mmol/L BUN 13 (7-18) mg/dL Creatinine 0.6 (0.6-1.0) mg/dL Est Cr Clr Drug Dosing 90.41 mL/min Estimated GFR (MDRD) > 60 (>60) Glucose 140 H (74-106) mg/dL Calcium 8.6 (8.5-10.1) mg/dL Total Bilirubin 0.2 (0.2-1.0) mg/dL AST 28 (15-37) U/L ALT 45 (12-78) U/L Alkaline Phosphatase 87 (46-116) U/L NT-Pro-B Natriuret Pep 27 (5-125) pg/mL Total Protein 6.8 (6.4-8.2) g/dL Albumin 3.4 (3.4-5.0) g/dL Globulin 3.4 (2.3-3.5) g/dL Albumin/Globulin Ratio 1.0 L (1.2-2.2) Meds: Medications Generic Name Dose Route Start Last Admin Trade Name Freq PRN Reason Stop Dose Admin Sodium Chloride 10 ml 07/15/17 18:04 07/15/17 18:39 Saline Flush FLUSH 10 ml ASDIRECTED PRN Administration Keep Vein Open Sodium Chloride 10 ml 07/15/17 18:04 07/15/17 18:39 Saline Flush FLUSH 10 ml ASDIRECTED PRN Administration Keep Vein Open Discontinued Medications Generic Name Dose Route Start Last Admin Trade Name Freq PRN Reason Stop Dose Admin Albuterol/Ipratropium 3 ml 07/15/17 17:24 07/15/17 17:30 Duoneb 3.0-0.5 Mg/3 Ml NEB 07/15/17 17:25 3 ml ONETIME ONE Administration Methylprednisolone Sodium Succinate 125 mg 07/15/17 18:05 07/15/17 18:39 Solu-Medrol IVPUSH 07/15/17 18:06 125 mg ONETIME ONE Administration Departure - Departure Time of Disposition: 19:25 Disposition: Home, Self-Care 01 Condition: Good Clinical Impression: Bronchitis - Discharge Information Referrals: PCP,None [Primary Care Provider] - Forms: ED Department Discharge Additional Instructions: Take full course of antibiotics, take full course of prednisone, Please followup with your primary care provider in 3-5 days if not better, please call return to the emergency department with worsening of symptoms. - My Orders Last 24 Hours: My Active Orders 07/15/17 18:04 Peripheral IV Care [RC] . DIRECTED Chest 2V [CR] Urgent Sodium Chloride 0.9% [Saline Flush] 10 ml FLUSH ASDIRECTED PRN Sodium Chloride 0.9% [Saline Flush] 10 ml FLUSH ASDIRECTED PRN Peripheral IV Insertion Adult [OM.PC] Urgent - Assessment/Plan Last 24 Hours: My Active Orders 07/15/17 18:04 Peripheral IV Care [RC] . DIRECTED Chest 2V [CR] Urgent Sodium Chloride 0.9% [Saline Flush] 10 ml FLUSH ASDIRECTED PRN Sodium Chloride 0.9% [Saline Flush] 10 ml FLUSH ASDIRECTED PRN Peripheral IV Insertion Adult [OM.PC] Urgent Plan: Assessment Acuity = acute Site and laterality = bronchitis complicated patient with known history of chronic obstructive pulmonary disease Etiology = suspicious for bacterial cause Manifestations = cough, dyspnea Location of injury = Home Lab values = CBC, CMP, BNP unremarkable influenza A and B are negative, chest x- ray I did review films myself I cannot appreciate any acute process, the official read from radiology is pending Plan She received 125 mg Solu-Medrol IV 1 plan is discharge home doxycycline 100 mg by mouth twice a day 7 days in combination with steroid taper of 40 mg prednisone for 3 days, 20 mg daily for 3 days followed by 10 mg daily for 3 days follow-up with primary care 3-5 days for reevaluation This note was dictated using [employer] voice recognition software please call with any questions on syntax or andres.
[2017-07-15 18:46] VITALS: BP 116/61
--- NOTE | 2017-07-17 09:20 | CR ---
Chest 2V INDICATION: sob COMPARISON: 05/10/2017 FINDINGS: Two views. Heart size normal. No infiltrates or pleural effusions. Lungs hyperinflated. IMPRESSION: No acute change. Hyperinflation.
== END 2017-07-15 19:30 | disposition home or self-care (01) ==
LOC: JP.ED 17:15
DX: J20.9 Acute bronchitis, unspecified (principal); J44.9 Chronic obstructive pulmonary disease, unspecified; F32.9 Major depressive disorder, single episode, unspecified; Z79.899 Other long term (current) drug therapy; Z88.1 Allergy status to other antibiotic agents; Z88.2 Allergy status to sulfonamides; Z88.6 Allergy status to analgesic agent; Z88.8 Allergy status to other drugs, medicaments and biological substances
CPT/HCPCS: 36415; 71020; 80053; 83880; 85025; 87804; 94640; 96374; 99285; J2930; J7050; J7620

== ENCOUNTER 2018-03-18 11:08 | Inpatient (IN) | payer OTHER ==
--- NOTE | 2018-03-18 12:53 | EDM.PDOC ---
ED HPI GENERAL MEDICAL PROBLEM - General Chief Complaint: Respiratory Problem Stated Complaint: TROUBLE BREATHING Time Seen by Provider: 03/18/18 12:48 Source of Information: Reports: Patient, Family () History Limitations: Reports: No Limitations, Respiratory Distress - History of Present Illness INITIAL COMMENTS - FREE TEXT/NARRATIVE: Pt with increased shortness of breath x 2 days. Takes Duoneb at home. Did take a neb treatment prior to arrival. No fever or chills. No vomiting. Did start 40mg Prednisone on Sunday and Sunday. Pt does smoke. Last illness in July. History of asthma and copd. 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) Middle Chest Pain Score (Numeric/FACES): 2 - Related Data Allergies Allergy/AdvReac Type Severity Reaction Status Date / Time ceftriaxone sodium Allergy Severe Respiratory Verified 07/15/17 17:37 [From Rocephin] Distress aspirin Allergy Cannot Verified 07/15/17 17:37 Remember bupropion HCl Allergy Other Verified 07/15/17 17:37 [From Wellbutrin] Sulfa (Sulfonamide Allergy Hives Verified 07/15/17 17:37 Antibiotics) Home Meds: Home Meds Venlafaxine HCl 75 mg PO DAILY 10/04/13 [History] *Advair 07/15/17 [History] *Albuterol 07/15/17 [History] *Metoprolol 07/15/17 [History] Past Medical History HEENT History: Reports: Impaired Vision Respiratory History: Reports: Asthma, COPD, Pneumonia, Recurrent 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 Musculoskeletal History: Reports: Fracture Psychiatric History: Reports: Anxiety, Depression - Infectious Disease History Infectious Disease History: Reports: Chicken Pox - Past Surgical History Female Surgical History: Reports: Oophorectomy Other Musculoskeletal Surgeries/Procedures:: right knee surgery Social & Family History - Family History Family Medical History: Noncontributory OBGYN: Reports: Fibroids Musculoskeletal: Reports: Arthritis Psychiatric: Reports: Anxiety, Depression - Tobacco Use Smoking Status *Q: Current Every Day Smoker Years of Tobacco use: 40 Packs/Tins Daily: 0.5 - Caffeine Use Caffeine Use: Reports: Soda - Recreational Drug Use Recreational Drug Use: No ED ROS GENERAL - Review of Systems Review Of Systems: See Below Constitutional: Reports: No Symptoms HEENT: Reports: Rhinitis, Sinus Problem (congestion) Respiratory: Reports: Shortness of Breath, Wheezing, Cough Cardiovascular: Reports: No Symptoms Endocrine: Reports: No Symptoms GI/Abdominal: Reports: No Symptoms : Reports: No Symptoms Musculoskeletal: Reports: No Symptoms Skin: Reports: No Symptoms Neurological: Reports: No Symptoms Psychiatric: Reports: No Symptoms Hematologic/Lymphatic: Reports: No Symptoms ED EXAM, GENERAL - Physical Exam Exam: See Below Exam Limited By: Respiratory Distress General Appearance: Mild Distress Ears: Normal External Exam, Normal Canal, Hearing Grossly Normal, Normal TMs Nose: Normal Inspection, Normal Mucosa, No Blood Throat/Mouth: Normal Inspection, Normal Lips, Normal Teeth, Normal Gums, Normal Oropharynx, Normal Voice, No Airway Compromise Head: Atraumatic, Normocephalic Neck: Normal Inspection, Supple, Non-Tender, Full Range of Motion Respiratory/Chest: Respiratory Distress, Decreased Breath Sounds, Wheezing ( expiratory throughout) Cardiovascular: Normal Peripheral Pulses, Regular Rate, Rhythm, No Edema, No Gallop, No JVD, No Murmur, No Rub GI/Abdominal: Normal Bowel Sounds, Soft, Non-Tender, No Organomegaly, No Distention, No Abnormal Bruit, No Mass Extremities: Normal Inspection, Normal Range of Motion, Non-Tender, Normal Capillary Refill, No Pedal Edema Neurological: Alert, Oriented, CN II-XII Intact, Normal Cognition, Normal Gait, Normal Reflexes, No Motor/Sensory Deficits Psychiatric: Normal Affect, Normal Mood Skin Exam: Warm, Dry, Intact, Normal Color, No Rash Course - Vital Signs Last Recorded V/S: Last Vital Signs Temp 97.7 F 03/18/18 12:14 Pulse 110 H 03/18/18 12:14 Resp 22 H 03/18/18 12:14 BP 135/70 03/18/18 12:14 Pulse Ox 90 L 03/18/18 12:14 - Orders/Labs/Meds Orders: Active Orders 24 hr Category Date Time Status Oxygen Therapy [RC] ASDIRECTED Care 03/18/18 12:58 Active RT Aerosol Therapy [RC] ASDIRECTED Care 03/18/18 12:56 Active Chest 2V [CR] Stat Exams 03/18/18 12:57 Taken ABG [BLOOD GAS ARTERIAL] [BG] Stat Lab 03/18/18 13:56 Ordered Labs: Laboratory Tests 03/18/18 03/18/18 03/18/18 Range/Units 13:00 13:07 13:07 WBC 18.5 H (4.5-11.0) K/uL RBC 4.52 (3.30-5.50) M/uL Hgb 13.9 (12.0-15.0) g/dL Hct 41.5 (36.0-48.0) % MCV 92 (80-98) fL MCH 31 (27-31) pg MCHC 34 (32-36) % Plt Count 297 (150-400) K/uL Neut % (Auto) 88 H (36-66) % Lymph % (Auto) 6 L (24-44) % [place] % (Auto) 5 (2-6) % Eos % (Auto) 0 L (2-4) % Baso % (Auto) 0 (0-1) % Sodium 137 L (140-148) mmol/L Potassium 4.3 (3.6-5.2) mmol/L Chloride 100 (100-108) mmol/L Carbon Dioxide 28 (21-32) mmol/L Anion Gap 13.3 (5.0-14.0) mmol/L BUN 28 H D (7-18) mg/dL Creatinine 0.9 (0.6-1.0) mg/dL Est Cr Clr Drug Dosing 59.55 mL/min Estimated GFR (MDRD) > 60 (>60) Glucose 292 H (74-106) mg/dL Lactic Acid 3.7 H (0.4-2.0) mmol/L Calcium 9.4 (8.5-10.1) mg/dL Meds: Medications Discontinued Medications Generic Name Dose Route Start Last Admin Trade Name Freq PRN Reason Stop Dose Admin Albuterol 2.5 mg 03/18/18 12:56 03/18/18 13:03 Proventil Neb Soln NEB 03/18/18 12:57 2.5 mg ONETIME ONE Administration Methylprednisolone Sodium Succinate 125 mg 03/18/18 12:57 03/18/18 13:03 Solu-Medrol IM 03/18/18 12:58 125 mg ONETIME ONE Administration Montelukast Sodium 10 mg 03/18/18 12:57 03/18/18 13:08 Singulair PO 03/18/18 12:58 10 mg ONETIME ONE Administration Departure - Departure Time of Disposition: 14:02 Disposition: Admitted As Inpatient 66 Condition: Poor Clinical Impression: COPD with exacerbation - Discharge Information *PRESCRIPTION DRUG MONITORING PROGRAM REVIEWED*: Not Applicable *COPY OF PRESCRIPTION DRUG MONITORING REPORT IN PATIENT LEYLA: Not Applicable Referrals: Crys Herndon PA-C [Primary Care Provider] - Forms: ED Department Discharge Additional Instructions: Labs with elevated WBC and elevated lactic acid. Pt unable to maintain oxygen saturations without O2. Chest xray with no obvious pneumonia. Pt will need to be admitted for work up for possible sepsis and evaluation of lungs. Dr Mendez admitting today for further cares. Pt in agreement with plan. - Problem List & Annotations (1) COPD with exacerbation SNOMED Code(s): 124022047 Code(s): J44.1 - CHRONIC OBSTRUCTIVE PULMONARY DISEASE W (ACUTE) EXACERBATION Status: Acute Priority: High Current Visit: Yes - My Orders Last 24 Hours: My Active Orders 03/18/18 12:56 RT Aerosol Therapy [RC] ASDIRECTED 03/18/18 12:57 Chest 2V [CR] Stat 03/18/18 12:58 Oxygen Therapy [RC] ASDIRECTED 03/18/18 13:56 ABG [BLOOD GAS ARTERIAL] [BG] Stat - Assessment/Plan Last 24 Hours: My Active Orders 03/18/18 12:56 RT Aerosol Therapy [RC] ASDIRECTED 03/18/18 12:57 Chest 2V [CR] Stat 03/18/18 12:58 Oxygen Therapy [RC] ASDIRECTED 03/18/18 13:56 ABG [BLOOD GAS ARTERIAL] [BG] Stat
[2018-03-18] MEDS ORDERED: Albuterol 0.083% 2.5 MG/3 ML Neb Soln NEB ONE (12:56)
[2018-03-18] MEDS ORDERED: Montelukast 10 MG Tab PO ONE (12:57)
[2018-03-18] MEDS ORDERED: methylPREDNISolone Sodium Succinate 125 MG/2 ML SDV IM ONE (12:57)
--- NOTE | 2018-03-18 14:42 | PCM.HP ---
H&P History of Present Illness - General Date of Service: 03/18/18 Admit Problem/Dx: Admission Diagnosis/Problem Admission Diagnosis/Problem Hypoxia Source of Information: Patient, Family, Provider, RN Notes Reviewed History Limitations: Reports: No Limitations - History of Present Illness Initial Comments - Free Text/Narative: Ms. Zhang is a 57-year-old woman who is admitted through the emergency department with hypoxia and hypercapnia secondary to COPD exacerbation with bronchitis. She has not felt well over the last 2 days and has had progressive symptoms of cough and shortness of breath. Cough has for the most part been nonproductive. Symptoms became worse this morning and she presented to the emergency department for further evaluation and management. On initial assessment was found to be hypoxic with elevation in respiratory rate. Current oxygen saturation is within desired range on supplemental oxygen. Arterial blood gases do show evidence of mild hypercapnia in addition to her previously noted hypoxia. Chest x-ray shows no evidence of infiltrate. Lactic acid level is elevated likely secondary to dehydration, no no other obvious indication of sepsis, underlying infection is likely viral in nature. She did take prednisone for 2 days at home prior to coming in, white blood cell count is elevated likely secondary to prednisone therapy. Middle Chest Pain Score (Numeric/FACES): 2 - Related Data Allergies/Adverse Reactions: Allergies Allergy/AdvReac Type Severity Reaction Status Date / Time ceftriaxone sodium Allergy Severe Respiratory Verified 07/15/17 17:37 [From Rocephin] Distress aspirin Allergy Cannot Verified 07/15/17 17:37 Remember bupropion HCl Allergy Other Verified 07/15/17 17:37 [From Wellbutrin] Sulfa (Sulfonamide Allergy Hives Verified 07/15/17 17:37 Antibiotics) Home Medications: Home Meds Venlafaxine HCl 75 mg PO DAILY 10/04/13 [History] *Advair 07/15/17 [History] *Albuterol 07/15/17 [History] *Metoprolol 07/15/17 [History] Past Medical History HEENT History: Reports: Impaired Vision Respiratory History: Reports: Asthma, COPD, Pneumonia, Recurrent 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 (See Below) Other OB/BYN History: ovarian cyst Musculoskeletal History: Reports: Fracture Psychiatric History: Reports: Anxiety, Depression - Infectious Disease History Infectious Disease History: Reports: Chicken Pox - Past Surgical History Female Surgical History: Reports: Oophorectomy Other Musculoskeletal Surgeries/Procedures:: right knee surgery Social & Family History - Family History Family Medical History: Noncontributory OBGYN: Reports: Fibroids Musculoskeletal: Reports: Arthritis Psychiatric: Reports: Anxiety, Depression - Tobacco Use Smoking Status *Q: Current Every Day Smoker Years of Tobacco use: 40 Packs/Tins Daily: 0.5 - Caffeine Use Caffeine Use: Reports: Soda - Recreational Drug Use Recreational Drug Use: No H&P Review of Systems - Review of Systems: Review Of Systems: See Below General: Reports: Weakness, Diaphoresis. Denies: Fever, Chills HEENT: Reports: No Symptoms Pulmonary: Reports: Shortness of Breath, Wheezing, Cough. Denies: Sputum, Hemoptysis Cardiovascular: Reports: Dyspnea on Exertion. Denies: Chest Pain, Palpitations , Orthopnea, PND, Edema, Lightheadedness Gastrointestinal: Reports: No Symptoms Genitourinary: Reports: No Symptoms Musculoskeletal: Reports: Back Pain Skin: Reports: No Symptoms Psychiatric: Reports: No Symptoms Neurological: Reports: No Symptoms Hematologic/Lymphatic: Reports: No Symptoms Immunologic: Reports: No Symptoms Exam - Exam Exam: See Below - Vital Signs Vital Signs: Last Vital Signs Temp 97.7 F 03/18/18 12:14 Pulse 110 H 03/18/18 12:14 Resp 22 H 03/18/18 12:14 BP 135/70 03/18/18 12:14 Pulse Ox 90 L 03/18/18 12:14 Weight: 182 lb 15.739 oz - Exam Quality Assessment: Supplemental Oxygen, DVT Prophylaxis General: Alert, Oriented, Cooperative, Moderate Distress HEENT: Conjunctiva Clear, Hearing Intact, Normal Nasal Septum, Posterior Pharynx Clear, Pupils Equal. No: Mucosa Moist & [place] Neck: Supple, Trachea Midline, +2 Carotid Pulse wo Bruit Lungs: Decreased Breath Sounds, Rhonchi, Wheezing. No: Crackles, Rales, Rub Cardiovascular: Regular Rate, Regular Rhythm, Normal S1, Normal S2. No: Systolic Murmur, Diastolic Murmur GI/Abdominal Exam: Soft, Non-Tender, No Organomegaly, No Distention Back Exam: Normal Inspection, Full Range of Motion Extremities: Non-Tender, No Pedal Edema Skin: Warm, Dry, Intact Neurological: Cranial Nerves Intact, Strength Equal Bilateral, Normal Speech, Normal Tone, Sensation Intact. No: Focal Deficit Neuro Extensive - Mental Status: Alert, Oriented x3, Normal Mood/Affect, Normal Cognition, Memory Intact - Patient Data Lab Results Last 24 hrs: Laboratory Results - last 24 hr 03/18/18 03/18/18 03/18/18 Range/Units 13:00 13:07 13:07 WBC 18.5 H (4.5-11.0) K/uL RBC 4.52 (3.30-5.50) M/uL Hgb 13.9 (12.0-15.0) g/dL Hct 41.5 (36.0-48.0) % MCV 92 (80-98) fL MCH 31 (27-31) pg MCHC 34 (32-36) % Plt Count 297 (150-400) K/uL Neut % (Auto) 88 H (36-66) % Lymph % (Auto) 6 L (24-44) % Jerome % (Auto) 5 (2-6) % Eos % (Auto) 0 L (2-4) % Baso % (Auto) 0 (0-1) % Puncture Site ABG pH (7.350-7.450) ABG pCO2 (35.0-42.0) mmHg ABG pO2 (75.0-100.0) mmHg ABG HCO3 (22.0-26.0) mmol/L ABG Total CO2 (21.0-25.0) mmol/L ABG O2 Saturation (95.0-98.0) % ABG O2 Content (15.0-23.0) %vol ABG Base Excess mm/L ABG Hemoglobin (12.0-16.0) g/dL ABG Oxyhemoglobin % ABG Carboxyhemoglobin (0.0-1.6) % ABG Methemoglobin % Farhad Test O2 Delivery Device Oxygen Flow Rate L Sodium 137 L (140-148) mmol/L Potassium 4.3 (3.6-5.2) mmol/L Chloride 100 (100-108) mmol/L Carbon Dioxide 28 (21-32) mmol/L Anion Gap 13.3 (5.0-14.0) mmol/L BUN 28 H D (7-18) mg/dL Creatinine 0.9 (0.6-1.0) mg/dL Est Cr Clr Drug Dosing 59.55 mL/min Estimated GFR (MDRD) > 60 (>60) Glucose 292 H (74-106) mg/dL Lactic Acid 3.7 H (0.4-2.0) mmol/L Calcium 9.4 (8.5-10.1) mg/dL 03/18/18 Range/Units 14:11 WBC (4.5-11.0) K/uL RBC (3.30-5.50) M/uL Hgb (12.0-15.0) g/dL Hct (36.0-48.0) % MCV (80-98) fL MCH (27-31) pg MCHC (32-36) % Plt Count (150-400) K/uL Neut % (Auto) (36-66) % Lymph % (Auto) (24-44) % Jerome % (Auto) (2-6) % Eos % (Auto) (2-4) % Baso % (Auto) (0-1) % Puncture Site Lt.radial ABG pH 7.397 (7.350-7.450) ABG pCO2 46.2 H (35.0-42.0) mmHg ABG pO2 67.4 L (75.0-100.0) mmHg ABG HCO3 27.8 H (22.0-26.0) mmol/L ABG Total CO2 24.5 (21.0-25.0) mmol/L ABG O2 Saturation 92.9 L (95.0-98.0) % ABG O2 Content 17.7 (15.0-23.0) %vol ABG Base Excess 2.8 mm/L ABG Hemoglobin 14.0 (12.0-16.0) g/dL ABG Oxyhemoglobin 89.4 % ABG Carboxyhemoglobin 3.0 H (0.0-1.6) % ABG Methemoglobin 0.8 % Farhad Test Passed O2 Delivery Device Nasal cannula Oxygen Flow Rate 2 L Sodium (140-148) mmol/L Potassium (3.6-5.2) mmol/L Chloride (100-108) mmol/L Carbon Dioxide (21-32) mmol/L Anion Gap (5.0-14.0) mmol/L BUN (7-18) mg/dL Creatinine (0.6-1.0) mg/dL Est Cr Clr Drug Dosing mL/min Estimated GFR (MDRD) (>60) Glucose (74-106) mg/dL Lactic Acid (0.4-2.0) mmol/L Calcium (8.5-10.1) mg/dL Result Diagrams: 03/18/18 13:07 03/18/18 13:07 *Q Meaningful Use (ADM) - VTE Risk Assess *Q Each Risk Factor Represents 1 Point: Age 41 - 59 years, Obesity ( BMI > 25 kg/m2 ), Abnormal Pulmonary Function (COPD) Total Score 1 Point Risk Factors: 3 Each Risk Factor Represents 2 Points: None Total Score 2 Point Risk Factors: 0 Each Risk Factor Represents 3 Points: None Total Score 3 Point Risk Factors: 0 Each Risk Factor Represents 5 Points: None Total Score 5 Point Risk Factors: 0 Venous Thromboembolism Risk Factor Score *Q: 3 Problem List Initiated/Reviewed/Updated: Yes Orders Last 24hrs: Active Orders 24 hr Category Date Time Status Patient Status Manage Transfer [TRANSFER] Routine ADT 03/18/18 14:24 Ordered Oxygen Therapy [RC] ASDIRECTED Care 03/18/18 12:58 Active RT Aerosol Therapy [RC] ASDIRECTED Care 03/18/18 12:56 Active Chest 2V [CR] Stat Exams 03/18/18 12:57 Taken Resuscitation Status Routine Resus Stat 03/18/18 14:26 Ordered Assessment/Plan Comment:: ASSESSMENT AND PLAN COPD EXACERBATION SECONDARY TO BRONCHITIS-no evidence of underlying pneumonia identified on chest x-ray, white blood cell count is elevated likely secondary to prednisone therapy over the past 2 days. -Sputum culture pending -Supplemental oxygen as needed -Follow-up chest x-ray PA and lateral in a.m. after hydration -Nebulizer therapy; albuterol, DuoNeb, Mucomyst -Solu-Medrol 40 mg IV every 6 hours -Levofloxacin 750 mg IV every 24 hours ACUTE HYPOXIC AND HYPERCAPNIC RESPIRATORY FAILURE-secondary to COPD exacerbation and bronchitis -Management as above MAINTENANCE ISSUES -DVT prophylaxis; Lovenox 40 mg subcutaneous daily -GI prophylaxis; not indicated -Jarvis catheter; not indicated -Nutrition; regular diet -Nicotine dependence; 14 mg nicotinic patch CODE STATUS-FULL CODE ADMISSION STATUS-patient will be admitted to inpatient status, expect at least a 2 night hospital stay for evaluation and management of problems as outlined above. At the time of this admission I do not reasonably expected evaluation and management of this problem will require more than a 96 hour hospital stay. DISPOSITION-anticipate discharge to home after the hospital stay. PRIMARY CARE PROVIDER-Sugey PIMENTEL
[2018-03-18] MEDS ORDERED: oxyCODONE 5 MG Tab PO PRN (14:58)
[2018-03-18] MEDS ORDERED: Ondansetron 4 MG/2 ML SDV IV PRN (14:58)
[2018-03-18] MEDS ORDERED: Magnesium Hydroxide 400 MG/5 ML Susp 30 ML Cup PO PRN (14:58)
[2018-03-18] MEDS ORDERED: Acetaminophen 325 MG Tab PO PRN (14:58)
[2018-03-18] MEDS ORDERED: Polyethylene Glycol 3350 Powder 17 GM Packet PO PRN (14:58)
[2018-03-18] MEDS ORDERED: Lactated Ringers 1,000 ML IV SCH (14:58)
[2018-03-18] MEDS ORDERED: Sodium Chloride 0.9% 10 ML Syringe FLUSH PRN (14:58)
[2018-03-18] MEDS: Albuterol/Ipratropium 3.0-0.5 MG/3 ML Neb Soln NEB SCH ×2 (15:15→20:20)
[2018-03-18] MEDS: Acetylcysteine 20% 200 MG/ML 4 ML Nebulizer Soln SDV NEB SCH ×3 (15:16→20:32)
[2018-03-18] MEDS: Enoxaparin 40 MG/0.4 ML Syringe SUBCUT SCH (15:47)
[2018-03-18] MEDS: Levofloxacin/Dextrose 5%-Water 750 MG in Premix Bag 1 BAG IV SCH (15:47)
[2018-03-18] MEDS: Lactated Ringers 1,000 ML IV SCH (18:07)
[2018-03-18] MEDS: methylPREDNISolone Sodium Succinate 40 MG/1 ML SDV IVPUSH SCH ×2 (18:08→23:22)
[2018-03-18] MEDS: Insulin Aspart 100 Units/ML 3 ML Pen SUBCUT SCH (20:12)
[2018-03-18] MEDS: Gabapentin 300 MG Cap PO SCH (20:17)
[2018-03-18] MEDS: Venlafaxine 75 MG Tab PO SCH (20:17)
[2018-03-18] MEDS ORDERED: Insulin Aspart 100 Units/ML 3 ML Pen SUBCUT SCH (22:00)
[2018-03-19] MEDS: Lactated Ringers 1,000 ML IV SCH (02:08)
[2018-03-19] MEDS: Albuterol 0.083% 2.5 MG/3 ML Neb Soln NEB PRN ×2 (04:31→20:03)
[2018-03-19] MEDS: methylPREDNISolone Sodium Succinate 40 MG/1 ML SDV IVPUSH SCH ×4 (06:10→23:16)
[2018-03-19] MEDS: Acetylcysteine 20% 200 MG/ML 4 ML Nebulizer Soln SDV NEB SCH ×3 (07:04→20:01)
[2018-03-19] MEDS: Albuterol/Ipratropium 3.0-0.5 MG/3 ML Neb Soln NEB SCH ×4 (07:04→20:01)
[2018-03-19] MEDS: Insulin Aspart 100 Units/ML 3 ML Pen SUBCUT SCH ×4 (07:28→21:46)
[2018-03-19] MEDS: Gabapentin 300 MG Cap PO SCH ×3 (08:23→20:03)
[2018-03-19] MEDS: Venlafaxine 75 MG Tab PO SCH ×2 (08:23→20:03)
--- NOTE | 2018-03-19 08:55 | PCM.PN ---
- General Info Date of Service: 03/19/18 Subjective Update: Ms. Zhang has been stable since admission and reports less shortness of breath, continues to have mainly nonproductive cough and shortness of breath with minimal exertion. She has remained afebrile and been hemodynamically stable. Functional Status: Reports: Pain Controlled, Tolerating Diet, Urinating - Review of Systems General: Denies: Fever, Chills Pulmonary: Reports: Shortness of Breath, Cough, Wheezing. Denies: Pleuritic Chest Pain, Sputum, Hemoptysis Cardiovascular: Reports: Dyspnea on Exertion. Denies: Chest Pain, Palpitations , Orthopnea, PND, Edema Gastrointestinal: Reports: No Symptoms Genitourinary: Reports: No Symptoms - Patient Data Vitals - Most Recent: Last Vital Signs Temp 97.1 F 03/19/18 08:00 Pulse 92 03/19/18 07:05 Resp 16 03/19/18 08:00 BP 148/60 H 03/19/18 08:00 Pulse Ox 95 03/19/18 08:00 Weight - Most Recent: 182 lb 9.6 oz I&O - Last 24 Hours: Intake & Output 03/18/18 03/19/18 03/19/18 22:59 06:59 14:59 Intake Total 1650 Output Total 1500 1500 Balance 150 -1500 Lab Results Last 24 Hours: Laboratory Results - last 24 hr 03/18/18 03/18/18 03/18/18 Range/Units 13:00 13:07 13:07 WBC 18.5 H (4.5-11.0) K/uL RBC 4.52 (3.30-5.50) M/uL Hgb 13.9 (12.0-15.0) g/dL Hct 41.5 (36.0-48.0) % MCV 92 (80-98) fL MCH 31 (27-31) pg MCHC 34 (32-36) % Plt Count 297 (150-400) K/uL Neut % (Auto) 88 H (36-66) % Lymph % (Auto) 6 L (24-44) % Randolph % (Auto) 5 (2-6) % Eos % (Auto) 0 L (2-4) % Baso % (Auto) 0 (0-1) % Puncture Site ABG pH (7.350-7.450) ABG pCO2 (35.0-42.0) mmHg ABG pO2 (75.0-100.0) mmHg ABG HCO3 (22.0-26.0) mmol/L ABG Total CO2 (21.0-25.0) mmol/L ABG O2 Saturation (95.0-98.0) % ABG O2 Content (15.0-23.0) %vol ABG Base Excess mm/L ABG Hemoglobin (12.0-16.0) g/dL ABG Oxyhemoglobin % ABG Carboxyhemoglobin (0.0-1.6) % ABG Methemoglobin % Farhad Test O2 Delivery Device Oxygen Flow Rate L Sodium 137 L (140-148) mmol/L Potassium 4.3 (3.6-5.2) mmol/L Chloride 100 (100-108) mmol/L Carbon Dioxide 28 (21-32) mmol/L Anion Gap 13.3 (5.0-14.0) mmol/L BUN 28 H D (7-18) mg/dL Creatinine 0.9 (0.6-1.0) mg/dL Est Cr Clr Drug Dosing 59.55 mL/min Estimated GFR (MDRD) > 60 (>60) Glucose 292 H (74-106) mg/dL Lactic Acid 3.7 H (0.4-2.0) mmol/L Calcium 9.4 (8.5-10.1) mg/dL Total Bilirubin (0.2-1.0) mg/dL Direct Bilirubin (0.0-0.2) mg/dL Indirect Bilirubin AST (15-37) U/L ALT (12-78) U/L Alkaline Phosphatase (46-116) U/L Total Protein (6.4-8.2) g/dL Albumin (3.4-5.0) g/dL Globulin (2.3-3.5) g/dL Albumin/Globulin Ratio (1.2-2.2) Urine Color Urine Appearance Urine pH (4.5-8.0) Ur Specific [place] (1.008-1.030) Urine Protein (NEGATIVE) mg/dL Urine Glucose (UA) (NEGATIVE) mg/dL Urine Ketones (NEGATIVE) mg/dL Urine Occult Blood (NEGATIVE) Urine Nitrite (NEGATIVE) Urine Bilirubin (NEGATIVE) Urine Urobilinogen (NORMAL) mg/dL Ur Leukocyte Esterase (NEGATIVE) Urine RBC (0-5) Urine WBC (0-5) Ur Epithelial Cells Amorphous Sediment Urine Bacteria Urine Mucus Urine Other 03/18/18 03/18/18 03/18/18 Range/Units 14:11 17:40 20:54 WBC (4.5-11.0) K/uL RBC (3.30-5.50) M/uL Hgb (12.0-15.0) g/dL Hct (36.0-48.0) % MCV (80-98) fL MCH (27-31) pg MCHC (32-36) % Plt Count (150-400) K/uL Neut % (Auto) (36-66) % Lymph % (Auto) (24-44) % Randolph % (Auto) (2-6) % Eos % (Auto) (2-4) % Baso % (Auto) (0-1) % Puncture Site Lt.radial ABG pH 7.397 (7.350-7.450) ABG pCO2 46.2 H (35.0-42.0) mmHg ABG pO2 67.4 L (75.0-100.0) mmHg ABG HCO3 27.8 H (22.0-26.0) mmol/L ABG Total CO2 24.5 (21.0-25.0) mmol/L ABG O2 Saturation 92.9 L (95.0-98.0) % ABG O2 Content 17.7 (15.0-23.0) %vol ABG Base Excess 2.8 mm/L ABG Hemoglobin 14.0 (12.0-16.0) g/dL ABG Oxyhemoglobin 89.4 % ABG Carboxyhemoglobin 3.0 H (0.0-1.6) % ABG Methemoglobin 0.8 % Farhad Test Passed O2 Delivery Device Nasal cannula Oxygen Flow Rate 2 L Sodium (140-148) mmol/L Potassium (3.6-5.2) mmol/L Chloride (100-108) mmol/L Carbon Dioxide (21-32) mmol/L Anion Gap (5.0-14.0) mmol/L BUN (7-18) mg/dL Creatinine (0.6-1.0) mg/dL Est Cr Clr Drug Dosing mL/min Estimated GFR (MDRD) (>60) Glucose (74-106) mg/dL Lactic Acid 4.0 H (0.4-2.0) mmol/L Calcium (8.5-10.1) mg/dL Total Bilirubin (0.2-1.0) mg/dL Direct Bilirubin (0.0-0.2) mg/dL Indirect Bilirubin AST (15-37) U/L ALT (12-78) U/L Alkaline Phosphatase (46-116) U/L Total Protein (6.4-8.2) g/dL Albumin (3.4-5.0) g/dL Globulin (2.3-3.5) g/dL Albumin/Globulin Ratio (1.2-2.2) Urine Color Yellow Urine Appearance Cloudy Urine pH 5.0 (4.5-8.0) Ur Specific [place] 1.020 (1.008-1.030) Urine Protein Negative (NEGATIVE) mg/dL Urine Glucose (UA) 1000 H (NEGATIVE) mg/dL Urine Ketones Negative (NEGATIVE) mg/dL Urine Occult Blood Negative (NEGATIVE) Urine Nitrite Negative (NEGATIVE) Urine Bilirubin Negative (NEGATIVE) Urine Urobilinogen Normal (NORMAL) mg/dL Ur Leukocyte Esterase Negative (NEGATIVE) Urine RBC 0-5 (0-5) Urine WBC 0-5 (0-5) Ur Epithelial Cells Rare Amorphous Sediment Packed Urine Bacteria Few Urine Mucus Not seen Urine Other 03/19/18 03/19/18 03/19/18 Range/Units 04:50 04:50 04:50 WBC 14.8 H (4.5-11.0) K/uL RBC 4.36 (3.30-5.50) M/uL Hgb 13.3 (12.0-15.0) g/dL Hct 40.6 (36.0-48.0) % MCV 93 (80-98) fL MCH 31 (27-31) pg MCHC 33 (32-36) % Plt Count 283 (150-400) K/uL Neut % (Auto) 88 H (36-66) % Lymph % (Auto) 7 L (24-44) % Randolph % (Auto) 4 (2-6) % Eos % (Auto) 0 L (2-4) % Baso % (Auto) 0 (0-1) % Puncture Site ABG pH (7.350-7.450) ABG pCO2 (35.0-42.0) mmHg ABG pO2 (75.0-100.0) mmHg ABG HCO3 (22.0-26.0) mmol/L ABG Total CO2 (21.0-25.0) mmol/L ABG O2 Saturation (95.0-98.0) % ABG O2 Content (15.0-23.0) %vol ABG Base Excess mm/L ABG Hemoglobin (12.0-16.0) g/dL ABG Oxyhemoglobin % ABG Carboxyhemoglobin (0.0-1.6) % ABG Methemoglobin % Farhad Test O2 Delivery Device Oxygen Flow Rate L Sodium (140-148) mmol/L Potassium (3.6-5.2) mmol/L Chloride (100-108) mmol/L Carbon Dioxide (21-32) mmol/L Anion Gap (5.0-14.0) mmol/L BUN (7-18) mg/dL Creatinine (0.6-1.0) mg/dL Est Cr Clr Drug Dosing mL/min Estimated GFR (MDRD) (>60) Glucose (74-106) mg/dL Lactic Acid 2.4 H (0.4-2.0) mmol/L Calcium (8.5-10.1) mg/dL Total Bilirubin 0.2 (0.2-1.0) mg/dL Direct Bilirubin 0.05 (0.0-0.2) mg/dL Indirect Bilirubin TNP AST 17 (15-37) U/L ALT 51 (12-78) U/L Alkaline Phosphatase 99 (46-116) U/L Total Protein 7.5 (6.4-8.2) g/dL Albumin 3.4 (3.4-5.0) g/dL Globulin 4.1 H (2.3-3.5) g/dL Albumin/Globulin Ratio 0.8 L (1.2-2.2) Urine Color Urine Appearance Urine pH (4.5-8.0) Ur Specific [place] (1.008-1.030) Urine Protein (NEGATIVE) mg/dL Urine Glucose (UA) (NEGATIVE) mg/dL Urine Ketones (NEGATIVE) mg/dL Urine Occult Blood (NEGATIVE) Urine Nitrite (NEGATIVE) Urine Bilirubin (NEGATIVE) Urine Urobilinogen (NORMAL) mg/dL Ur Leukocyte Esterase (NEGATIVE) Urine RBC (0-5) Urine WBC (0-5) Ur Epithelial Cells Amorphous Sediment Urine Bacteria Urine Mucus Urine Other Med Orders - Current: Current Medications Acetaminophen (Tylenol) 650 mg PO Q4H PRN PRN Reason: Pain (Mild 1-3)/fever Acetylcysteine (Mucomyst 20%) 200 mg NEB TIDRT [facility] Last Admin: 03/19/18 07:04 Dose: 200 mg Albuterol (Proventil Neb Soln) 2.5 mg NEB Q4H PRN PRN Reason: Dyspnea Last Admin: 03/19/18 04:31 Dose: 2.5 mg Albuterol/Ipratropium (Duoneb 3.0-0.5 Mg/3 Ml) 3 ml NEB QIDRT [facility] Last Admin: 03/19/18 07:04 Dose: 3 ml Enoxaparin Sodium (Lovenox) 40 mg SUBCUT Q24H [facility] Last Admin: 03/18/18 15:47 Dose: 40 mg Gabapentin (Neurontin) 300 mg PO TID [facility] Last Admin: 03/19/18 08:23 Dose: 300 mg Levofloxacin/Dextrose 750 mg/ (Premix) 150 mls @ 100 mls/hr IV Q24H [facility] Last Admin: 03/18/18 15:47 Dose: 100 mls/hr Insulin Aspart (Novolog) 0 unit SUBCUT QIDACANDBED [facility]; Protocol Last Admin: 03/19/18 07:28 Dose: 4 units Magnesium Hydroxide (Milk Of Magnesia) 30 ml PO Q12H PRN PRN Reason: Constipation Methylprednisolone Sodium Succinate (Solu-Medrol) 40 mg IVPUSH Q6H [facility] Last Admin: 03/19/18 06:10 Dose: 40 mg Ondansetron HCl (Zofran) 4 mg IV Q4H PRN PRN Reason: Nausea/Vomiting Oxycodone HCl (Oxycodone) 5 mg PO Q4H PRN PRN Reason: Pain (moderate 4-6) Polyethylene Glycol (Miralax) 17 gm PO DAILY PRN PRN Reason: Constipation Senna/Docusate Sodium (Senna Plus) 1 tab PO BID PRN PRN Reason: Constipation Sodium Chloride (Saline Flush) 10 ml FLUSH ASDIRECTED PRN PRN Reason: Keep Vein Open Venlafaxine HCl (Effexor) 150 mg PO BID [facility] Last Admin: 03/19/18 08:23 Dose: 150 mg Discontinued Medications Albuterol (Proventil Neb Soln) 2.5 mg NEB ONETIME ONE Stop: 03/18/18 12:57 Last Admin: 03/18/18 13:03 Dose: 2.5 mg Lactated Ringer's (Ringers, Lactated) 1,000 mls @ 500 mls/hr IV ASDIRECTED EVELYN Stop: 03/18/18 17:59 Last Admin: 03/18/18 15:44 Dose: 500 mls/hr Lactated Ringer's (Ringers, Lactated) 1,000 mls @ 125 mls/hr IV ASDIRECTED [facility] Last Admin: 03/19/18 02:08 Dose: 125 mls/hr Insulin Aspart (Novolog) 0 unit SUBCUT QID [facility]; Protocol Methylprednisolone Sodium Succinate (Solu-Medrol) 125 mg IM ONETIME ONE Stop: 03/18/18 12:58 Last Admin: 03/18/18 13:03 Dose: 125 mg Montelukast Sodium (Singulair) 10 mg PO ONETIME ONE Stop: 03/18/18 12:58 Last Admin: 03/18/18 13:08 Dose: 10 mg - Exam Quality Assessment: Supplemental Oxygen, DVT Prophylaxis General: Alert, Oriented, Cooperative, Mild Distress Lungs: Decreased Breath Sounds, Rhonchi, Wheezing. No: Rales, Rub Cardiovascular: Regular Rate, Regular Rhythm, No Murmurs GI/Abdominal Exam: Soft, Non-Tender, No Organomegaly, No Distention Extremities: Non-Tender, No Pedal Edema Skin: Warm, Dry, Intact - Problem List Review Problem List Initiated/Reviewed/Updated: Yes - My Orders Last 24 Hours: My Active Orders 03/18/18 14:26 Resuscitation Status Routine 03/18/18 14:58 Ambulate [RC] QID Cardiac Monitoring [RC] Q6H Height and Weight [RC] DAILY Intake and Output [RC] QSHIFT Notify Provider Vital Signs [RC] ASDIRECTED Oxygen Therapy [RC] Q12H Peripheral IV Care [RC] . DIRECTED Pulse Oximetry [RC] CONTINUOUS RT Aerosol Therapy [RC] ASDIRECTED Up With Assistance [RC] ASDIRECTED Up to Chair [RC] QID Vital Signs [RC] Q2H CULTURE RESPIRATORY + SMEAR [] Stat Acetaminophen [Tylenol] 650 mg PO Q4H PRN Acetylcysteine [Mucomyst 20%] 200 mg NEB TIDRT Albuterol [Proventil Neb Soln] 2.5 mg NEB Q4H PRN Docusate Sodium/Sennosides [Senna Plus] 1 tab PO BID PRN Magnesium Hydroxide [Milk of Magnesia] 30 ml PO Q12H PRN Ondansetron [Zofran] 4 mg IV Q4H PRN Polyethylene Glycol 3350 [MiraLAX] 17 gm PO DAILY PRN Sodium Chloride 0.9% [Saline Flush] 10 ml FLUSH ASDIRECTED PRN oxyCODONE 5 mg PO Q4H PRN Peripheral IV Insertion Adult [OM.PC] Routine RT Acapella [RESPCARE] Routine 03/18/18 15:00 Albuterol/Ipratropium [DuoNeb 3.0-0.5 MG/3 ML] 3 ml NEB QIDRT 03/18/18 16:00 Enoxaparin [Lovenox] 40 mg SUBCUT Q24H Levofloxacin/Dextrose 5%-Water [Levaquin in D5W 750 MG/150 ML] 750 mg Premix Bag 1 bag IV Q24H 03/18/18 18:00 methylPREDNISolone Sod Succ [Solu-MEDROL] 40 mg IVPUSH Q6H 03/18/18 18:14 Blood Glucose Check, Bedside [RC] QIDACANDBED 03/18/18 20:00 Insulin Aspart [NovoLOG] See Protocol SUBCUT QIDACANDBED 03/18/18 21:00 Gabapentin [Neurontin] 300 mg PO TID Venlafaxine [Effexor] 150 mg PO BID 03/18/18 Lunch Regular Diet [DIET] 03/19/18 05:11 Chest 2V [CR] AM 03/19/18 08:48 Patient Status [ADT] Routine 03/19/18 08:50 Convert IV to Saline Lock [OM.PC] Routine 03/19/18 08:52 Codeine/guaiFENesin [Robitussin AC] 10 ml PO Q4H PRN 03/20/18 05:00 BASIC METABOLIC PANEL,BMP [CHEM] Timed CBC WITH AUTO DIFF [HEME] Timed - Plan Plan:: ASSESSMENT AND PLAN COPD EXACERBATION SECONDARY TO BRONCHITIS-no infiltrate on chest x-ray repeated this morning after hydration. She is less short of breath but continues to experience a nonproductive cough. -Sputum culture pending -Supplemental oxygen as needed -Nebulizer therapy; albuterol, DuoNeb, Mucomyst -Solu-Medrol 40 mg IV every 6 hours -Levofloxacin 750 mg IV every 24 hours ACUTE HYPOXIC AND HYPERCAPNIC RESPIRATORY FAILURE-secondary to COPD exacerbation and bronchitis -Management as above MAINTENANCE ISSUES -DVT prophylaxis; Lovenox 40 mg subcutaneous daily -GI prophylaxis; not indicated -Jarvis catheter; not indicated -Nutrition; regular diet -Nicotine dependence; 14 mg nicotinic patch CODE STATUS-FULL CODE ADMISSION STATUS-patient will be admitted to inpatient status, expect at least a 2 night hospital stay for evaluation and management of problems as outlined above. At the time of this admission I do not reasonably expected evaluation and management of this problem will require more than a 96 hour hospital stay. DISPOSITION-anticipate discharge to home after the hospital stay. PRIMARY CARE PROVIDER-Sugey PIMENTEL
[2018-03-19] MEDS: Codeine/guaiFENesin 100mg-10 MG/5 ML Syrup 10 ML Cup PO PRN ×2 (10:32→20:03)
--- NOTE | 2018-03-19 11:04 | CR ---
CHEST: 2 view CLINICAL HISTORY:SOB COMPARISON:2017 FINDINGS: Heart size and pulmonary vascularity appear normal. Lungs are clear. There are no effusion s. IMPRESSION: No acute cardiopulmonary process or significant change from prior study
--- NOTE | 2018-03-19 11:24 | CR ---
CHEST: 2 view CLINICAL HISTORY:Follow-up COMPARISON:03/18/2018 FINDINGS: The heart size, pulmonary vascular and hilar structures are normal. No infiltrate effusion or pneumothorax is seen. IMPRESSION: No acute cardiopulmonary process.
[2018-03-19] MEDS: Levofloxacin/Dextrose 5%-Water 750 MG in Premix Bag 1 BAG IV SCH (15:45)
[2018-03-19] MEDS: Enoxaparin 40 MG/0.4 ML Syringe SUBCUT SCH (15:45)
[2018-03-20] MEDS: Codeine/guaiFENesin 100mg-10 MG/5 ML Syrup 10 ML Cup PO PRN (03:06)
[2018-03-20] MEDS: Albuterol 0.083% 2.5 MG/3 ML Neb Soln NEB PRN (03:06)
[2018-03-20] MEDS: methylPREDNISolone Sodium Succinate 40 MG/1 ML SDV IVPUSH SCH ×3 (06:10→14:48)
[2018-03-20] MEDS: Acetylcysteine 20% 200 MG/ML 4 ML Nebulizer Soln SDV NEB SCH ×3 (07:37→21:05)
[2018-03-20] MEDS: Albuterol/Ipratropium 3.0-0.5 MG/3 ML Neb Soln NEB SCH ×4 (07:37→21:05)
[2018-03-20] MEDS: Insulin Aspart 100 Units/ML 3 ML Pen SUBCUT SCH ×4 (07:48→21:10)
[2018-03-20] MEDS: Gabapentin 300 MG Cap PO SCH ×3 (08:19→21:07)
[2018-03-20] MEDS: Venlafaxine 75 MG Tab PO SCH ×2 (08:19→21:06)
--- NOTE | 2018-03-20 14:02 | PCM.PN ---
- General Info Date of Service: 03/20/18 Subjective Update: Ms. Zhang has noted further mild improvement in shortness of breath and cough over the past 24 hours, continues to require supplemental oxygen to maintain adequate oxygenation. Vital signs have been stable and she has remained afebrile. Functional Status: Reports: Tolerating Diet, Ambulating, Urinating - Review of Systems General: Denies: Fever, Weakness, Chills Pulmonary: Reports: Shortness of Breath, Cough, Wheezing. Denies: Pleuritic Chest Pain, Sputum, Hemoptysis Cardiovascular: Reports: Dyspnea on Exertion. Denies: Chest Pain, Palpitations , Orthopnea, PND, Edema, Lightheadedness Gastrointestinal: Reports: No Symptoms - Patient Data Vitals - Most Recent: Last Vital Signs Temp 98.9 F 03/20/18 11:16 Pulse 91 03/20/18 11:24 Resp 20 03/20/18 11:16 BP 150/70 H 03/20/18 11:16 Pulse Ox 92 L 03/20/18 11:24 Weight - Most Recent: 187 lb 3.2 oz I&O - Last 24 Hours: Intake & Output 03/19/18 03/20/18 03/20/18 22:59 06:59 14:59 Intake Total 390 Balance 390 Lab Results Last 24 Hours: Laboratory Results - last 24 hr 03/20/18 03/20/18 Range/Units 05:00 05:00 WBC 17.4 H (4.5-11.0) K/uL RBC 4.27 (3.30-5.50) M/uL Hgb 12.7 (12.0-15.0) g/dL Hct 40.3 (36.0-48.0) % MCV 94 (80-98) fL MCH 30 (27-31) pg MCHC 32 (32-36) % Plt Count 259 (150-400) K/uL Neut % (Auto) 88 H (36-66) % Lymph % (Auto) 6 L (24-44) % [place] % (Auto) 6 (2-6) % Eos % (Auto) 0 L (2-4) % Baso % (Auto) 0 (0-1) % Sodium 140 (140-148) mmol/L Potassium 4.2 (3.6-5.2) mmol/L Chloride 103 (100-108) mmol/L Carbon Dioxide 31 (21-32) mmol/L Anion Gap 5.7 (5.0-14.0) mmol/L BUN 20 H (7-18) mg/dL Creatinine 0.7 (0.6-1.0) mg/dL Est Cr Clr Drug Dosing 77.13 mL/min Estimated GFR (MDRD) > 60 (>60) Glucose 217 H (74-106) mg/dL Calcium 8.9 (8.5-10.1) mg/dL Med Orders - Current: Current Medications Acetaminophen (Tylenol) 650 mg PO Q4H PRN PRN Reason: Pain (Mild 1-3)/fever Acetylcysteine (Mucomyst 20%) 200 mg NEB TID@0700,1500,2100 [facility] Last Admin: 03/20/18 07:37 Dose: 200 mg Albuterol (Proventil Neb Soln) 2.5 mg NEB Q4H PRN PRN Reason: Dyspnea Last Admin: 03/20/18 03:06 Dose: 2.5 mg Albuterol/Ipratropium (Duoneb 3.0-0.5 Mg/3 Ml) 3 ml NEB QIDRT [facility] Last Admin: 03/20/18 11:23 Dose: 3 ml Enoxaparin Sodium (Lovenox) 40 mg SUBCUT Q24H [facility] Last Admin: 03/19/18 15:45 Dose: 40 mg Gabapentin (Neurontin) 300 mg PO TID [facility] Last Admin: 03/20/18 08:19 Dose: 300 mg Guaifenesin/Codeine Phosphate (Robitussin Ac) 10 ml PO Q4H PRN PRN Reason: Cough Last Admin: 03/20/18 03:06 Dose: 10 ml Insulin Aspart (Novolog) 0 unit SUBCUT QIDACANDBED [facility]; Protocol Last Admin: 03/20/18 11:47 Dose: 6 units Levofloxacin (Levaquin) 500 mg PO Q24H [facility] Magnesium Hydroxide (Milk Of Magnesia) 30 ml PO Q12H PRN PRN Reason: Constipation Methylprednisolone Sodium Succinate (Solu-Medrol) 40 mg IVPUSH Q12H [facility] Ondansetron HCl (Zofran) 4 mg IV Q4H PRN PRN Reason: Nausea/Vomiting Oxycodone HCl (Oxycodone) 5 mg PO Q4H PRN PRN Reason: Pain (moderate 4-6) Polyethylene Glycol (Miralax) 17 gm PO DAILY PRN PRN Reason: Constipation Senna/Docusate Sodium (Senna Plus) 1 tab PO BID PRN PRN Reason: Constipation Sodium Chloride (Saline Flush) 10 ml FLUSH ASDIRECTED PRN PRN Reason: Keep Vein Open Last Admin: 03/19/18 15:45 Dose: 10 ml Venlafaxine HCl (Effexor) 150 mg PO BID [facility] Last Admin: 03/20/18 08:19 Dose: 150 mg Discontinued Medications Acetylcysteine (Mucomyst 20%) 200 mg NEB TIDRT [facility] Last Admin: 03/19/18 07:04 Dose: 200 mg Albuterol (Proventil Neb Soln) 2.5 mg NEB ONETIME ONE Stop: 03/18/18 12:57 Last Admin: 03/18/18 13:03 Dose: 2.5 mg Lactated Ringer's (Ringers, Lactated) 1,000 mls @ 500 mls/hr IV ASDIRECTED [facility] Stop: 03/18/18 17:59 Last Admin: 03/18/18 15:44 Dose: 500 mls/hr Lactated Ringer's (Ringers, Lactated) 1,000 mls @ 125 mls/hr IV ASDIRECTED [facility] Last Admin: 03/19/18 02:08 Dose: 125 mls/hr Levofloxacin/Dextrose 750 mg/ (Premix) 150 mls @ 100 mls/hr IV Q24H [facility] Last Admin: 03/19/18 15:45 Dose: 100 mls/hr Insulin Aspart (Novolog) 0 unit SUBCUT QID [facility]; Protocol Methylprednisolone Sodium Succinate (Solu-Medrol) 125 mg IM ONETIME ONE Stop: 03/18/18 12:58 Last Admin: 03/18/18 13:03 Dose: 125 mg Methylprednisolone Sodium Succinate (Solu-Medrol) 40 mg IVPUSH Q6H [facility] Last Admin: 03/20/18 11:48 Dose: 40 mg Montelukast Sodium (Singulair) 10 mg PO ONETIME ONE Stop: 03/18/18 12:58 Last Admin: 03/18/18 13:08 Dose: 10 mg - Exam Quality Assessment: Supplemental Oxygen, DVT Prophylaxis General: Alert, Oriented, Cooperative, Mild Distress Lungs: Decreased Breath Sounds, Wheezing. No: Crackles, Rales, Rhonchi Cardiovascular: Regular Rate, Regular Rhythm, No Murmurs GI/Abdominal Exam: Soft, Non-Tender, No Organomegaly, No Distention Extremities: Non-Tender, No Pedal Edema Skin: Warm, Dry - Problem List Review Problem List Initiated/Reviewed/Updated: Yes - My Orders Last 24 Hours: My Active Orders 03/19/18 15:00 Acetylcysteine [Mucomyst 20%] 200 mg NEB TID@0700,1500,2100 03/20/18 14:00 levoFLOXacin [Levaquin] 500 mg PO Q24H methylPREDNISolone Sod Succ [Solu-MEDROL] 40 mg IVPUSH Q12H 03/20/18 16:30 GLUCOSE POC LAB TO COLLECT [POC] QIDACANDBED 03/20/18 21:00 GLUCOSE POC LAB TO COLLECT [POC] QIDACANDBED 03/21/18 05:00 CBC WITH AUTO DIFF [HEME] Timed - Plan Plan:: ASSESSMENT AND PLAN COPD EXACERBATION SECONDARY TO BRONCHITIS-slow improvement in shortness of breath and cough, continues to require supplemental oxygen -Sputum culture pending -Supplemental oxygen as needed -Nebulizer therapy; albuterol, DuoNeb, Mucomyst -Solu-Medrol 40 mg IV every 12 hours -Levofloxacin 500 mg by mouth daily ACUTE HYPOXIC AND HYPERCAPNIC RESPIRATORY FAILURE-secondary to COPD exacerbation and bronchitis -Management as above MAINTENANCE ISSUES -DVT prophylaxis; Lovenox 40 mg subcutaneous daily -GI prophylaxis; not indicated -Jarvis catheter; not indicated -Nutrition; regular diet -Nicotine dependence; 14 mg nicotinic patch CODE STATUS-FULL CODE ADMISSION STATUS-patient will be admitted to inpatient status, expect at least a 2 night hospital stay for evaluation and management of problems as outlined above. At the time of this admission I do not reasonably expected evaluation and management of this problem will require more than a 96 hour hospital stay. DISPOSITION-anticipate discharge to home after the hospital stay. PRIMARY CARE PROVIDER-Sugey PIMENTEL
[2018-03-20] MEDS: Enoxaparin 40 MG/0.4 ML Syringe SUBCUT SCH (16:09)
[2018-03-20] MEDS: Levofloxacin 500 MG Tab PO SCH (16:09)
[2018-03-21] MEDS: methylPREDNISolone Sodium Succinate 40 MG/1 ML SDV IVPUSH SCH ×2 (02:37→13:37)
[2018-03-21] MEDS: Albuterol 0.083% 2.5 MG/3 ML Neb Soln NEB PRN (02:41)
[2018-03-21] MEDS: Albuterol/Ipratropium 3.0-0.5 MG/3 ML Neb Soln NEB SCH ×4 (07:10→20:25)
[2018-03-21] MEDS: Acetylcysteine 20% 200 MG/ML 4 ML Nebulizer Soln SDV NEB SCH ×3 (07:10→20:25)
[2018-03-21] MEDS: Insulin Aspart 100 Units/ML 3 ML Pen SUBCUT SCH ×4 (08:05→22:00)
[2018-03-21] MEDS: Venlafaxine 75 MG Tab PO SCH ×2 (09:04→20:26)
[2018-03-21] MEDS: Gabapentin 300 MG Cap PO SCH ×3 (09:04→20:26)
[2018-03-21] MEDS: Levofloxacin 500 MG Tab PO SCH (15:34)
[2018-03-21] MEDS: Enoxaparin 40 MG/0.4 ML Syringe SUBCUT SCH (15:34)
--- NOTE | 2018-03-21 17:22 | PCM.PN ---
- General Info Date of Service: 03/21/18 Subjective Update: Ms. hZang has improved over the last 24 hours, now off of supplemental oxygen with adequate oxygenation on room air. Less short of breath with activity and cough also seems to be improved. Functional Status: Reports: Tolerating Diet, Ambulating, Urinating - Review of Systems General: Reports: Weakness. Denies: Fever, Chills Pulmonary: Reports: Shortness of Breath, Cough, Wheezing. Denies: Pleuritic Chest Pain, Sputum, Hemoptysis Cardiovascular: Reports: Dyspnea on Exertion. Denies: Chest Pain, Palpitations , Orthopnea, PND, Edema Gastrointestinal: Reports: No Symptoms - Patient Data Vitals - Most Recent: Last Vital Signs Temp 98 F 03/21/18 11:18 Pulse 82 03/21/18 14:24 Resp 16 03/21/18 11:18 BP 132/64 03/21/18 11:18 Pulse Ox 91 L 03/21/18 11:18 Weight - Most Recent: 184 lb I&O - Last 24 Hours: Intake & Output 03/21/18 03/21/18 03/21/18 06:59 14:59 22:59 Intake Total 240 480 Output Total 1 Balance 239 480 Lab Results Last 24 Hours: Laboratory Results - last 24 hr 03/21/18 Range/Units 04:30 WBC 17.6 H (4.5-11.0) K/uL RBC 4.27 (3.30-5.50) M/uL Hgb 13.1 (12.0-15.0) g/dL Hct 40.1 (36.0-48.0) % MCV 94 (80-98) fL MCH 31 (27-31) pg MCHC 33 (32-36) % Plt Count 263 (150-400) K/uL Neut % (Auto) 80 H (36-66) % Lymph % (Auto) 10 L (24-44) % [place] % (Auto) 10 H (2-6) % Eos % (Auto) 0 L (2-4) % Baso % (Auto) 0 (0-1) % Med Orders - Current: Current Medications Acetaminophen (Tylenol) 650 mg PO Q4H PRN PRN Reason: Pain (Mild 1-3)/fever Acetylcysteine (Mucomyst 20%) 200 mg NEB TID@0700,1500,2100 [facility] Last Admin: 03/21/18 14:24 Dose: 200 mg Albuterol (Proventil Neb Soln) 2.5 mg NEB Q4H PRN PRN Reason: Dyspnea Last Admin: 03/21/18 02:41 Dose: 2.5 mg Albuterol/Ipratropium (Duoneb 3.0-0.5 Mg/3 Ml) 3 ml NEB QIDRT [facility] Last Admin: 03/21/18 14:24 Dose: 3 ml Enoxaparin Sodium (Lovenox) 40 mg SUBCUT Q24H [facility] Last Admin: 03/21/18 15:34 Dose: 40 mg Gabapentin (Neurontin) 300 mg PO TID [facility] Last Admin: 03/21/18 13:38 Dose: 300 mg Guaifenesin/Codeine Phosphate (Robitussin Ac) 10 ml PO Q4H PRN PRN Reason: Cough Last Admin: 03/20/18 03:06 Dose: 10 ml Insulin Aspart (Novolog) 0 unit SUBCUT QIDACANDBED [facility]; Protocol Last Admin: 03/21/18 16:59 Dose: 4 units Levofloxacin (Levaquin) 500 mg PO Q24H [facility] Last Admin: 03/21/18 15:34 Dose: 500 mg Magnesium Hydroxide (Milk Of Magnesia) 30 ml PO Q12H PRN PRN Reason: Constipation Ondansetron HCl (Zofran) 4 mg IV Q4H PRN PRN Reason: Nausea/Vomiting Oxycodone HCl (Oxycodone) 5 mg PO Q4H PRN PRN Reason: Pain (moderate 4-6) Polyethylene Glycol (Miralax) 17 gm PO DAILY PRN PRN Reason: Constipation Senna/Docusate Sodium (Senna Plus) 1 tab PO BID PRN PRN Reason: Constipation Sodium Chloride (Saline Flush) 10 ml FLUSH ASDIRECTED PRN PRN Reason: Keep Vein Open Last Admin: 03/19/18 15:45 Dose: 10 ml Venlafaxine HCl (Effexor) 150 mg PO BID [facility] Last Admin: 03/21/18 09:04 Dose: 150 mg Discontinued Medications Acetylcysteine (Mucomyst 20%) 200 mg NEB TIDRT [facility] Last Admin: 03/19/18 07:04 Dose: 200 mg Albuterol (Proventil Neb Soln) 2.5 mg NEB ONETIME ONE Stop: 03/18/18 12:57 Last Admin: 03/18/18 13:03 Dose: 2.5 mg Lactated Ringer's (Ringers, Lactated) 1,000 mls @ 500 mls/hr IV ASDIRECTED ON [facility] Stop: 03/18/18 17:59 Last Admin: 03/18/18 15:44 Dose: 500 mls/hr Lactated Ringer's (Ringers, Lactated) 1,000 mls @ 125 mls/hr IV ASDIRECTED [facility] Last Admin: 03/19/18 02:08 Dose: 125 mls/hr Levofloxacin/Dextrose 750 mg/ (Premix) 150 mls @ 100 mls/hr IV Q24H [facility] Last Admin: 03/19/18 15:45 Dose: 100 mls/hr Insulin Aspart (Novolog) 0 unit SUBCUT QID [facility]; Protocol Methylprednisolone Sodium Succinate (Solu-Medrol) 125 mg IM ONETIME ONE Stop: 03/18/18 12:58 Last Admin: 03/18/18 13:03 Dose: 125 mg Methylprednisolone Sodium Succinate (Solu-Medrol) 40 mg IVPUSH Q6H [facility] Last Admin: 03/20/18 11:48 Dose: 40 mg Methylprednisolone Sodium Succinate (Solu-Medrol) 40 mg IVPUSH Q12H [facility] Last Admin: 03/21/18 13:37 Dose: 40 mg Montelukast Sodium (Singulair) 10 mg PO ONETIME ONE Stop: 03/18/18 12:58 Last Admin: 03/18/18 13:08 Dose: 10 mg - Exam Quality Assessment: DVT Prophylaxis General: Alert, Oriented, Cooperative, Mild Distress Lungs: Decreased Breath Sounds, Wheezing. No: Crackles, Rales, Rhonchi Cardiovascular: Regular Rate, Regular Rhythm, No Murmurs GI/Abdominal Exam: Soft, Non-Tender, No Organomegaly, No Distention Extremities: Non-Tender, No Pedal Edema Skin: Warm, Dry, Intact - Problem List Review Problem List Initiated/Reviewed/Updated: Yes - My Orders Last 24 Hours: My Active Orders 03/21/18 05:11 GLYCOSYLATED HEMOGLOBIN,HGBA1C [CHEM] AM 03/21/18 21:00 GLUCOSE POC LAB TO COLLECT [POC] QIDACANDBED 03/22/18 08:00 predniSONE 40 mg PO WITHBREAKFAST - Plan Plan:: ASSESSMENT AND PLAN COPD EXACERBATION SECONDARY TO BRONCHITIS-further improvement over the past 24 hours, now off of supplemental oxygen -Nebulizer therapy; albuterol, DuoNeb, Mucomyst -Prednisone 40 mg by mouth daily -Levofloxacin 500 mg by mouth daily ACUTE HYPOXIC AND HYPERCAPNIC RESPIRATORY FAILURE-secondary to COPD exacerbation and bronchitis -Management as above MAINTENANCE ISSUES -DVT prophylaxis; Lovenox 40 mg subcutaneous daily -GI prophylaxis; not indicated -Jarvis catheter; not indicated -Nutrition; regular diet -Nicotine dependence; 14 mg nicotinic patch CODE STATUS-FULL CODE ADMISSION STATUS-patient will be admitted to inpatient status, expect at least a 2 night hospital stay for evaluation and management of problems as outlined above. At the time of this admission I do not reasonably expected evaluation and management of this problem will require more than a 96 hour hospital stay. DISPOSITION-anticipate discharge to home after the hospital stay. PRIMARY CARE PROVIDER-Sugey PIMENTEL
[2018-03-22] MEDS: Albuterol 0.083% 2.5 MG/3 ML Neb Soln NEB PRN (03:48)
[2018-03-22] MEDS: Albuterol/Ipratropium 3.0-0.5 MG/3 ML Neb Soln NEB SCH (07:05)
[2018-03-22] MEDS: Acetylcysteine 20% 200 MG/ML 4 ML Nebulizer Soln SDV NEB SCH (07:06)
[2018-03-22 07:18] VITALS: BP 135/72
[2018-03-22] MEDS: Insulin Aspart 100 Units/ML 3 ML Pen SUBCUT SCH (07:53)
[2018-03-22] MEDS ORDERED: predniSONE 20 MG Tab PO SCH (08:00)
[2018-03-22] MEDS: Venlafaxine 75 MG Tab PO SCH (08:04)
[2018-03-22] MEDS: Gabapentin 300 MG Cap PO SCH (08:04)
--- NOTE | 2018-03-22 10:25 | PCM.DCSUM1 ---
Discharge Summary - Hospital Course Brief History: Ms. Zhang is a 57-year-old woman who was admitted through the emergency department with increased shortness of breath, cough, hypoxia, hypercapnia, secondary to COPD exacerbation and underlying bronchitis. - Discharge Data Discharge Date: 03/22/18 Discharge Disposition: Home, Self-Care 01 Condition: Fair - Discharge Diagnosis/Problem(s) (1) Bronchitis SNOMED Code(s): 11415620 ICD Code: J40 - BRONCHITIS, NOT SPECIFIED ACUTE OR CHRONIC Status: Acute Current Visit: Yes (2) Type 2 diabetes mellitus SNOMED Code(s): 02906720 ICD Code: E11.9 - TYPE 2 DIABETES MELLITUS WITHOUT COMPLICATIONS Status: Acute Current Visit: Yes (3) COPD with exacerbation SNOMED Code(s): 138519672 ICD Code: J44.1 - CHRONIC OBSTRUCTIVE PULMONARY DISEASE W (ACUTE) EXACERBATION Status: Acute Priority: High Current Visit: Yes - Patient Summary/Data Hospital Course: Ms. Zhang is a 57-year-old woman who was admitted through the emergency department with hypoxia and hypercapnia secondary to COPD exacerbation with bronchitis. She has not felt well for 2 days prior to admission and has had progressive symptoms of cough and shortness of breath. Cough has for the most part been nonproductive. Symptoms became worse on the morning of admission and she presented to the emergency department for further evaluation and management. On initial assessment was found to be hypoxic with elevation in respiratory rate. Current oxygen saturation is within desired range on supplemental oxygen. Arterial blood gases do show evidence of mild hypercapnia in addition to her previously noted hypoxia. Chest x-ray shows no evidence of infiltrate. Lactic acid level is elevated likely secondary to dehydration, no other obvious indication of sepsis, underlying infection is likely viral in nature. She did take prednisone for 2 days at home prior to coming in, white blood cell count is elevated likely secondary to prednisone therapy. On admission she was given IV fluids for hydration, IV antibiotic therapy with levofloxacin, and IV Solu-Medrol. Over the course of her hospital stay her respiratory status improved and by the time of discharge she had adequate oxygenation on room air. Expiratory wheezing had not totally resolved by the time of discharge. She was given nicotinic patch for nicotinic withdrawal and is committed to stopping smoking at the time of discharge. Blood glucose levels were noted to be elevated, this was thought to be likely secondary to look quite therapy and possible underlying diabetes. She was treated with sliding scale NovoLog during the hospitalization. Hemoglobin A1c was obtained prior to discharge and was found to be elevated at 8. She will be seen by the communications manager prior to discharge and will be scheduled with a follow-up appointment with primary primary care and communications manager. She will remain on oral antibiotic therapy for an additional 2 days after discharge as well as oral prednisone. Activity will be as tolerated and she will be on a diabetic diet. - Patient Instructions Diet: Diabetic Diet Activity: As Tolerated Other/Special Instructions: Off of work until seen for follow-up appointment. Please schedule follow-up appointment with communications manager. Please schedule follow-up appointment with primary care provider within one week. Stop smoking. - Discharge Plan *PRESCRIPTION DRUG MONITORING PROGRAM REVIEWED*: Not Applicable *COPY OF PRESCRIPTION DRUG MONITORING REPORT IN PATIENT LEYLA: Not Applicable Prescriptions/Med Rec: levoFLOXacin [Levaquin] 500 mg PO Q24H #3 tablet predniSONE 40 mg PO WITHBREAKFAST #6 tablet Home Medications: Home Meds Venlafaxine HCl 150 mg PO BID 10/04/13 [History] Albuterol/Ipratropium [Combivent Respimat] 1 inh INH Q6HR PRN 03/18/18 [History] Albuterol/Ipratropium [DuoNeb 3.0-0.5 MG/3 ML] 1 inh INH QID PRN 03/18/18 [ History] Gabapentin [Neurontin] 1 tab PO TID 03/18/18 [History] levoFLOXacin [Levaquin] 500 mg PO Q24H #3 tablet 03/22/18 [Rx] predniSONE 40 mg PO WITHBREAKFAST #6 tablet 03/22/18 [Rx] Referrals: Crys Herndon PA-C [Primary Care Provider] - - Discharge Summary/Plan Comment DC Time >30 min.: No - Patient Data Vitals - Most Recent: Last Vital Signs Temp 97 F 03/22/18 07:16 Pulse 68 03/22/18 07:16 Resp 16 03/22/18 07:16 BP 135/72 03/22/18 07:16 Pulse Ox 95 03/22/18 07:16 Weight - Most Recent: 183 lb I&O - Last 24 hours: Intake & Output 03/21/18 03/22/18 03/22/18 22:59 06:59 14:59 Intake Total 480 Balance 480 Lab Results - Last 24 hrs: Laboratory Results - last 24 hr 03/21/18 Range/Units 06:00 Hemoglobin A1c 8.0 H (4.5-6.2) % Med Orders - Current: Current Medications Acetaminophen (Tylenol) 650 mg PO Q4H PRN PRN Reason: Pain (Mild 1-3)/fever Acetylcysteine (Mucomyst 20%) 200 mg NEB TID@0700,1500,2100 [facility] Last Admin: 03/22/18 07:06 Dose: 200 mg Albuterol (Proventil Neb Soln) 2.5 mg NEB Q4H PRN PRN Reason: Dyspnea Last Admin: 03/22/18 03:48 Dose: 2.5 mg Albuterol/Ipratropium (Duoneb 3.0-0.5 Mg/3 Ml) 3 ml NEB QIDRT [facility] Last Admin: 03/22/18 07:05 Dose: 3 ml Enoxaparin Sodium (Lovenox) 40 mg SUBCUT Q24H [facility] Last Admin: 03/21/18 15:34 Dose: 40 mg Gabapentin (Neurontin) 300 mg PO TID [facility] Last Admin: 03/22/18 08:04 Dose: 300 mg Guaifenesin/Codeine Phosphate (Robitussin Ac) 10 ml PO Q4H PRN PRN Reason: Cough Last Admin: 03/20/18 03:06 Dose: 10 ml Insulin Aspart (Novolog) 0 unit SUBCUT QIDACANDBED [facility]; Protocol Last Admin: 03/22/18 07:53 Dose: Not Given Levofloxacin (Levaquin) 500 mg PO Q24H [facility] Last Admin: 03/21/18 15:34 Dose: 500 mg Magnesium Hydroxide (Milk Of Magnesia) 30 ml PO Q12H PRN PRN Reason: Constipation Ondansetron HCl (Zofran) 4 mg IV Q4H PRN PRN Reason: Nausea/Vomiting Oxycodone HCl (Oxycodone) 5 mg PO Q4H PRN PRN Reason: Pain (moderate 4-6) Polyethylene Glycol (Miralax) 17 gm PO DAILY PRN PRN Reason: Constipation Prednisone (Prednisone) 40 mg PO WITHBREAKFAST [facility] Last Admin: 03/22/18 08:04 Dose: 40 mg Senna/Docusate Sodium (Senna Plus) 1 tab PO BID PRN PRN Reason: Constipation Sodium Chloride (Saline Flush) 10 ml FLUSH ASDIRECTED PRN PRN Reason: Keep Vein Open Last Admin: 03/19/18 15:45 Dose: 10 ml Venlafaxine HCl (Effexor) 150 mg PO BID [facility] Last Admin: 03/22/18 08:04 Dose: 150 mg Discontinued Medications Acetylcysteine (Mucomyst 20%) 200 mg NEB TIDRT [facility] Last Admin: 03/19/18 07:04 Dose: 200 mg Albuterol (Proventil Neb Soln) 2.5 mg NEB ONETIME ONE Stop: 03/18/18 12:57 Last Admin: 03/18/18 13:03 Dose: 2.5 mg Lactated Ringer's (Ringers, Lactated) 1,000 mls @ 500 mls/hr IV ASDIRECTED [facility] Stop: 03/18/18 17:59 Last Admin: 03/18/18 15:44 Dose: 500 mls/hr Lactated Ringer's (Ringers, Lactated) 1,000 mls @ 125 mls/hr IV ASDIRECTED [facility] Last Admin: 03/19/18 02:08 Dose: 125 mls/hr Levofloxacin/Dextrose 750 mg/ (Premix) 150 mls @ 100 mls/hr IV Q24H [facility] Last Admin: 03/19/18 15:45 Dose: 100 mls/hr Insulin Aspart (Novolog) 0 unit SUBCUT QID [facility]; Protocol Methylprednisolone Sodium Succinate (Solu-Medrol) 125 mg IM ONETIME ONE Stop: 03/18/18 12:58 Last Admin: 03/18/18 13:03 Dose: 125 mg Methylprednisolone Sodium Succinate (Solu-Medrol) 40 mg IVPUSH Q6H [facility] Last Admin: 03/20/18 11:48 Dose: 40 mg Methylprednisolone Sodium Succinate (Solu-Medrol) 40 mg IVPUSH Q12H [facility] Last Admin: 03/21/18 13:37 Dose: 40 mg Montelukast Sodium (Singulair) 10 mg PO ONETIME ONE Stop: 03/18/18 12:58 Last Admin: 03/18/18 13:08 Dose: 10 mg - Exam General: Reports: Alert, Oriented, Cooperative, No Acute Distress Lungs: Reports: Decreased Breath Sounds, Wheezing. Denies: Crackles, Rales, Rhonchi Cardiovascular: Reports: Regular Rate, Regular Rhythm, No Murmurs GI/Abdominal Exam: Soft, Non-Tender, No Organomegaly, No Distention
== END 2018-03-22 10:55 | disposition home or self-care (01) | DRG 190 ==
LOC: JP.ED 11:08 → JP.ICU 14:24 → JP.MS 03-19 13:12
PROVIDERS: ADMIT Hospitalist; ATTEND Hospitalist
DX: J44.0 Chronic obstructive pulmonary disease with (acute) lower respiratory infection (principal); J96.01 Acute respiratory failure with hypoxia; J96.02 Acute respiratory failure with hypercapnia; J20.9 Acute bronchitis, unspecified; F17.210 Nicotine dependence, cigarettes, uncomplicated; J44.1 Chronic obstructive pulmonary disease with (acute) exacerbation; Z87.01 Personal history of pneumonia (recurrent); H54.7 Unspecified visual loss; F32.9 Major depressive disorder, single episode, unspecified; F41.9 Anxiety disorder, unspecified; E11.9 Type 2 diabetes mellitus without complications; E86.0 Dehydration; Z79.52 Long term (current) use of systemic steroids; Z88.1 Allergy status to other antibiotic agents; Z88.2 Allergy status to sulfonamides; Z88.8 Allergy status to other drugs, medicaments and biological substances
CPT/HCPCS: 36415; 36600; 71046; 71046-26; 80048; 80076; 81001; 82803; 82962; 83036; 83605; 85025; 94640; 94644; 94667; 94668; 96372; 99285-25; A9270-GY; J1650; J1956; J2920; J2930; J7050; J7120; J7620-GY

== ENCOUNTER 2018-10-20 17:56 | Inpatient (IN) | payer OTHER ==
[2018-10-20] MEDS ORDERED: Albuterol/Ipratropium 3.0-0.5 MG/3 ML Neb Soln NEB ONE (18:05)
[2018-10-20] MEDS ORDERED: methylPREDNISolone Sodium Succinate 125 MG/2 ML SDV IVPUSH ONE (18:13)
--- NOTE | 2018-10-20 18:26 | EDM.PDOC ---
ED HPI GENERAL MEDICAL PROBLEM - General Chief Complaint: Respiratory Problem Stated Complaint: TROUBLE BREATHING Time Seen by Provider: 10/20/18 18:05 Source of Information: Reports: Patient, Family History Limitations: Reports: No Limitations - History of Present Illness INITIAL COMMENTS - FREE TEXT/NARRATIVE: 57-year-old female with known COPD and recurring asthma developed a head cold 2 days ago. No fevers or chills. Over the last 2 days despite frequent nebs and hand-held inhalers she is becoming more short of breath. She arrived in the emergency room acutely dyspneic, O2 sats 70% on room air with increased respiratory rate. She denies any pain. Cough is nonproductive. Onset: Gradual Duration: Day(s): (2 days) Improves with: Reports: Medication (Nebulizers helped briefly) Associated Symptoms: Reports: Cough, Shortness of Breath, Weakness. Denies: Fever/Chills, Nausea/Vomiting - Related Data Allergies Allergy/AdvReac Type Severity Reaction Status Date / Time ceftriaxone sodium Allergy Severe Respiratory Verified 10/20/18 18:07 [From Rocephin] Distress bupropion HCl Allergy Other Verified 10/20/18 18:07 [From Wellbutrin] Sulfa (Sulfonamide Allergy Hives Verified 10/20/18 18:07 Antibiotics) Home Meds: Home Meds Venlafaxine HCl 150 mg PO BID 10/04/13 [History] Albuterol/Ipratropium [Combivent Respimat] 1 inh INH Q6HR PRN 03/18/18 [History] Albuterol/Ipratropium [DuoNeb 3.0-0.5 MG/3 ML] 1 inh INH QID PRN 03/18/18 [ History] Gabapentin [Neurontin] 300 mg PO BID 03/18/18 [History] Budesonide/Formoterol [Symbicort 160-4.5 MCG] 2 puff IH BID 06/09/18 [History] Tiotropium [Spiriva Handihaler] 1 puff IH DAILY 06/09/18 [History] Aspirin 81 mg PO DAILY 10/20/18 [History] metFORMIN HCl [Metformin HCl] 2 tab PO BID 10/20/18 [History] Past Medical History HEENT History: Reports: Impaired Vision Respiratory History: Reports: Asthma, COPD, Pneumonia, Recurrent Genitourinary History: Reports: Renal Calculus 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: Other (See Below) Other SYSTEMS ADMINISTRATION ANALYST History: ovarian cyst Musculoskeletal History: Reports: Fracture Psychiatric History: Reports: Anxiety, Depression - Infectious Disease History Infectious Disease History: Reports: Chicken Pox - Past Surgical History Female Surgical History: Reports: Oophorectomy Other Musculoskeletal Surgeries/Procedures:: right knee surgery Social & Family History - Family History Family Medical History: Noncontributory OBGYN: Reports: Fibroids Musculoskeletal: Reports: Arthritis Psychiatric: Reports: Anxiety, Depression - Tobacco Use Smoking Status *Q: Heavy Tobacco Smoker Years of Tobacco use: 40 Packs/Tins Daily: 0.7 - Caffeine Use Caffeine Use: Reports: None - Recreational Drug Use Recreational Drug Use: No ED ROS GENERAL - Review of Systems Review Of Systems: See Below Constitutional: Reports: Malaise. Denies: Fever, Chills HEENT: Reports: Rhinitis, Other (Scratchy throat) Respiratory: Reports: Shortness of Breath, Cough Cardiovascular: Denies: Chest Pain GI/Abdominal: Denies: Abdominal Pain, Nausea, Vomiting : Reports: No Symptoms Skin: Reports: No Symptoms Neurological: Denies: Headache ED EXAM, GENERAL - Physical Exam Exam: See Below Exam Limited By: No Limitations General Appearance: Alert, Mild Distress Eye Exam: Bilateral Eye: Normal Inspection Head: Atraumatic Respiratory/Chest: Respiratory Distress, Wheezing (Diffuse inspiratory and expiratory wheezes bilaterally) Cardiovascular: Regular Rate, Rhythm, Tachycardia GI/Abdominal: Non-Tender Extremities: No: Pedal Edema Neurological: Alert, Oriented Psychiatric: Anxious Skin Exam: Warm, Dry Course - Vital Signs Last Recorded V/S: Last Vital Signs Temp 97.9 F 10/20/18 19:47 Pulse 82 10/20/18 19:47 Resp 20 10/20/18 19:47 BP 121/49 L 10/20/18 19:47 Pulse Ox 91 L 10/20/18 20:08 - Orders/Labs/Meds Orders: Medication Orders Acetaminophen (Tylenol) 650 mg PO Q4H PRN PRN Reason: Pain (Mild 1-3)/fever Albuterol (Proventil Neb Soln) 2.5 mg NEB Q4H PRN PRN Reason: Shortness Of Breath/wheezing Albuterol/Ipratropium (Duoneb 3.0-0.5 Mg/3 Ml) 3 ml NEB QIDRT [facility] Last Admin: 10/20/18 21:18 Dose: 3 ml Aspirin (Halfprin) 81 mg PO DAILY [facility] Dextrose (Glutose 15) 15 gm PO ONETIME PRN PRN Reason: Hypoglycemia Dextrose/Water (Dextrose 50% In Water) 50 ml IV ONETIME PRN PRN Reason: Hypoglycemia Enoxaparin Sodium (Lovenox) 40 mg SUBCUT DAILY@1999 [facility] Last Admin: 10/20/18 20:54 Dose: 40 mg Gabapentin (Neurontin) 300 mg PO BID [facility] Last Admin: 10/20/18 20:54 Dose: 300 mg Doxycycline Hyclate 100 mg/ (Sodium Chloride) 100 mls @ 100 mls/hr IV Q12H [facility] Last Admin: 10/20/18 21:12 Dose: 100 mls/hr Sodium Chloride (Normal Saline) 1,000 mls @ 125 mls/hr IV ASDIRECTED [facility] Last Admin: 10/20/18 19:50 Dose: 125 mls/hr Insulin Human Lispro (Humalog) 0 unit SUBCUT QIDACANDBED [facility]; Protocol Metformin HCl (Glucophage) 1,000 mg PO BIDMEALS [facility] Methylprednisolone Sodium Succinate (Solu-Medrol) 40 mg IVPUSH Q6H [facility] Ondansetron HCl (Zofran) 4 mg IV Q4H PRN PRN Reason: Nausea/Vomiting Polyethylene Glycol (Miralax) 17 gm PO DAILY PRN PRN Reason: Constipation Fluticasone/Salmeterol (Fluticasone-Salmeterol 232-14 Mcg Powder Inha) 0 puff INH BID [facility] Sodium Chloride (Saline Flush) 10 ml FLUSH ASDIRECTED PRN PRN Reason: Keep Vein Open Tiotropium [place] (Spiriva Handihaler) 18 mcg INH DAILY [facility] Venlafaxine HCl (Effexor) 150 mg PO BID [facility] Last Admin: 10/20/18 20:54 Dose: 150 mg Labs: Laboratory Tests 10/20/18 10/20/18 Range/Units 18:27 18:27 WBC 13.5 H (4.5-11.0) K/uL RBC 4.96 (3.30-5.50) M/uL Hgb 14.6 (12.0-15.0) g/dL Hct 44.7 (36.0-48.0) % MCV 90 (80-98) fL MCH 29 (27-31) pg MCHC 33 (32-36) % Plt Count 273 (150-400) K/uL Neut % (Auto) 75 H (36-66) % Lymph % (Auto) 16 L (24-44) % [place] % (Auto) 9 H (2-6) % Eos % (Auto) 1 L (2-4) % Baso % (Auto) 0 (0-1) % Sodium 141 (140-148) mmol/L Potassium 4.3 (3.6-5.2) mmol/L Chloride 101 (100-108) mmol/L Carbon Dioxide 32 (21-32) mmol/L Anion Gap 7.9 (5.0-14.0) mmol/L BUN 20 H (7-18) mg/dL Creatinine 0.6 (0.6-1.0) mg/dL Est Cr Clr Drug Dosing TNP Estimated GFR (MDRD) > 60 (>60) Glucose 120 H (74-106) mg/dL Calcium 9.7 (8.5-10.1) mg/dL Meds: Medications Generic Name Dose Route Start Last Admin Trade Name Freq PRN Reason Stop Dose Admin Acetaminophen 650 mg 10/20/18 19:18 Tylenol PO Q4H PRN Pain (Mild 1-3)/fever Albuterol 2.5 mg 10/20/18 19:18 Proventil Neb Soln NEB Q4H PRN Shortness Of Breath/wheezing Albuterol/Ipratropium 3 ml 10/20/18 21:00 10/20/18 21:18 Duoneb 3.0-0.5 Mg/3 Ml NEB 3 ml QIDRT [facility] Administration Aspirin 81 mg 10/21/18 09:00 Halfprin PO DAILY [facility] Dextrose 15 gm 10/20/18 19:18 Glutose 15 PO ONETIME PRN Hypoglycemia Dextrose/Water 50 ml 10/20/18 19:18 Dextrose 50% In Water IV ONETIME PRN Hypoglycemia Enoxaparin Sodium 40 mg 10/20/18 20:00 10/20/18 20:54 Lovenox SUBCUT 40 mg DAILY@2000 [facility] Administration Gabapentin 300 mg 10/20/18 21:00 10/20/18 20:54 Neurontin PO 300 mg BID [facility] Administration Doxycycline Hyclate 100 mg/ 100 mls @ 100 mls/hr 10/20/18 20:00 10/20/18 21: 12 Sodium Chloride IV 100 mls/hr Q12H [facility] Administration Sodium Chloride 1,000 mls @ 125 mls/hr 10/20/18 19:30 10/20/18 19:50 Normal Saline IV 125 mls/hr ASDIRECTED [facility] Administration Insulin Human Lispro 0 unit 10/20/18 20:00 Humalog SUBCUT QIDACANDBED [facility] Protocol Metformin HCl 1,000 mg 10/21/18 08:00 Glucophage PO BIDMEALS [facility] Methylprednisolone Sodium Succinate 40 mg 10/21/18 00:00 Solu-Medrol IVPUSH Q6H [facility] Ondansetron HCl 4 mg 10/20/18 19:18 Zofran IV Q4H PRN Nausea/Vomiting Polyethylene Glycol 17 gm 10/20/18 19:18 Miralax PO DAILY PRN Constipation Fluticasone/Salmeterol 0 puff 10/20/18 21:00 Fluticasone-Salmeterol 232-14 Mcg Powder Inha INH BID [facility] Sodium Chloride 10 ml 10/20/18 19:18 Saline Flush FLUSH ASDIRECTED PRN Keep Vein Open Tiotropium [place] 18 mcg 10/21/18 09:00 Spiriva Handihaler INH DAILY [facility] Venlafaxine HCl 150 mg 10/20/18 21:00 10/20/18 20:54 Effexor PO 150 mg BID [facility] Administration Discontinued Medications Generic Name Dose Route Start Last Admin Trade Name Freq PRN Reason Stop Dose Admin Albuterol/Ipratropium 3 ml 10/20/18 18:05 10/20/18 18:09 Duoneb 3.0-0.5 Mg/3 Ml NEB 10/20/18 18:06 3 ml ONETIME ONE Administration Gabapentin 6,300 mg 10/20/18 21:00 Neurontin PO BID [facility] Sodium Chloride 1,000 mls @ 125 mls/hr 10/20/18 18:30 10/20/18 18:26 Normal Saline IV 125 mls/hr ASDIRECTED [facility] Administration Metformin HCl 500 mg 10/20/18 20:03 10/20/18 20:54 Glucophage PO 500 mg BIDMEALS [facility] Administration Metformin HCl 500 mg 10/20/18 21:30 10/20/18 21:26 Glucophage PO 10/20/18 21:31 500 mg ONETIME ONE Administration Methylprednisolone Sodium Succinate 125 mg 10/20/18 18:13 10/20/18 18:26 Solu-Medrol IVPUSH 10/20/18 18:14 125 mg ONETIME ONE Administration Non-Formulary Medication 1 inh 10/20/18 19:24 Albuterol/Ipratropium [Combivent Respimat] INH Q6HR PRN Shortness of Breath - Re-Assessments/Exams Free Text/Narrative Re-Assessment/Exam: 10/20/18 18:27 a DuoNeb was given as well as oxygen supplementation. Her O2 sats did improve to 92% with 2 L of O2 nasal cannula, but she became fairly short of breath with decreased O2 saturations just walking to the bathroom even after her nebulizer. An IV was started, she was given 125 mg of IV Solu-Medrol, started on a maintenance normal saline, CBC and BMP were obtained and a 1 view chest x-ray ordered. Dr. Mendez of the hospitalist service will come and assess the patient for admission. 10/20/18 18:49 White count is 13,500, chest x-ray is normal. She is somewhat more comfortable after the nebulizer and Solu-Medrol. Still is requiring oxygen to stay above 90 % at rest. Departure - Departure Time of Disposition: 19:39 Disposition: Admitted As Inpatient 66 Condition: Fair Clinical Impression: COPD with exacerbation - Discharge Information
[2018-10-20] MEDS ORDERED: Sodium Chloride 0.9% 1,000 ML IV SCH (18:30)
--- NOTE | 2018-10-20 18:47 | CRLCR ---
INDICATION: cough, wheezing, hypoxia CHEST, ONE VIEW An AP radiograph of the chest was performed. Comparison: 03/19/2018. The lungs appear clear and no pleural effusions are identified. The cardiomediastinal silhouette and pulmonary vasculature appear normal, as do the visualized bones. IMPRESSION: No acute intrathoracic abnormality identified. YOVANI WHITE MD [employer] [employer] Dictated by: Cal White MD @ 10/20/2018 18:45:31 (Electronically Signed)
[2018-10-20] MEDS ORDERED: Glucose Gel 15 GM in 37.5 GM Tube PO PRN (19:18)
[2018-10-20] MEDS ORDERED: 50% Dextrose in Water 50 ML Syringe IV PRN (19:18)
[2018-10-20] MEDS ORDERED: Acetaminophen 325 MG Tab PO PRN (19:18)
[2018-10-20] MEDS ORDERED: Polyethylene Glycol 3350 Powder 17 GM Packet PO PRN (19:18)
[2018-10-20] MEDS ORDERED: Sodium Chloride 0.9% 10 ML Syringe FLUSH PRN (19:18)
[2018-10-20] MEDS ORDERED: Ondansetron 4 MG/2 ML SDV IV PRN (19:18)
[2018-10-20] MEDS ORDERED: ALBUTEROL INH PRN (19:24)
[2018-10-20] MEDS ORDERED: IPRATROPIUM INH PRN (19:24)
--- NOTE | 2018-10-20 19:30 | PCM.HP ---
H&P History of Present Illness - General Date of Service: 10/20/18 Admit Problem/Dx: Admission Diagnosis/Problem Admission Diagnosis/Problem COPD, Moderate chronic obstructive pulmonary disease Source of Information: Patient, Old Records, Provider, RN Notes Reviewed History Limitations: Reports: No Limitations - History of Present Illness Initial Comments - Free Text/Narative: Ms. Zhang is a 57-year-old woman who is admitted through the emergency department with hypoxia secondary to COPD exacerbation with bronchitis. She has not felt well over the last 2 days and has had progressive symptoms of cough and shortness of breath. Cough has for the most part been nonproductive. Symptoms became worse today and she presented to the emergency department for further evaluation and management. On initial assessment was found to be hypoxic, with an initial oxygen saturation of 78% on room air. Current oxygen saturation is within desired range on supplemental oxygen. Chest x-ray shows no evidence of infiltrate. White blood cell count mildly elevated, likely secondary to stress of shortness of breath. She does feel somewhat improved following DuoNeb on admission to the emergency department. - Related Data Allergies/Adverse Reactions: Allergies Allergy/AdvReac Type Severity Reaction Status Date / Time ceftriaxone sodium Allergy Severe Respiratory Verified 10/20/18 18:07 [From Rocephin] Distress bupropion HCl Allergy Other Verified 10/20/18 18:07 [From Wellbutrin] Sulfa (Sulfonamide Allergy Hives Verified 10/20/18 18:07 Antibiotics) Home Medications: Home Meds Venlafaxine HCl 150 mg PO BID 10/04/13 [History] Albuterol/Ipratropium [Combivent Respimat] 1 inh INH Q6HR PRN 03/18/18 [History] Albuterol/Ipratropium [DuoNeb 3.0-0.5 MG/3 ML] 1 inh INH QID PRN 03/18/18 [ History] Gabapentin [Neurontin] 6,300 mg PO BID 03/18/18 [History] Budesonide/Formoterol [Symbicort 160-4.5 MCG] 2 puff IH BID 06/09/18 [History] Tiotropium [Spiriva Handihaler] 1 puff IH DAILY 06/09/18 [History] Past Medical History HEENT History: Reports: Impaired Vision Respiratory History: Reports: Asthma, COPD, Pneumonia, Recurrent Genitourinary History: Reports: Renal Calculus 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 (See Below) Other OB/BYN History: ovarian cyst Musculoskeletal History: Reports: Fracture Psychiatric History: Reports: Anxiety, Depression - Infectious Disease History Infectious Disease History: Reports: Chicken Pox - Past Surgical History Female Surgical History: Reports: Oophorectomy Other Musculoskeletal Surgeries/Procedures:: right knee surgery Social & Family History - Family History Family Medical History: Noncontributory OBGYN: Reports: Fibroids Musculoskeletal: Reports: Arthritis Psychiatric: Reports: Anxiety, Depression - Tobacco Use Smoking Status *Q: Heavy Tobacco Smoker Years of Tobacco use: 40 Packs/Tins Daily: 0.7 - Caffeine Use Caffeine Use: Reports: None - Recreational Drug Use Recreational Drug Use: No H&P Review of Systems - Review of Systems: Review Of Systems: See Below General: Reports: Weakness, Diaphoresis, Decreased Appetite. Denies: Fever, Chills HEENT: Reports: No Symptoms Pulmonary: Reports: Shortness of Breath, Wheezing, Cough. Denies: Pleuritic Chest Pain, Sputum, Hemoptysis Cardiovascular: Reports: Dyspnea on Exertion. Denies: Chest Pain, Palpitations , Orthopnea, PND, Edema, Lightheadedness Gastrointestinal: Reports: No Symptoms Genitourinary: Reports: No Symptoms Musculoskeletal: Reports: No Symptoms Skin: Reports: No Symptoms Psychiatric: Reports: No Symptoms Neurological: Reports: No Symptoms Hematologic/Lymphatic: Reports: No Symptoms Immunologic: Reports: No Symptoms Exam - Exam Exam: See Below - Vital Signs Vital Signs: Last Vital Signs Temp 97.1 F 10/20/18 18:12 Pulse 86 10/20/18 18:44 Resp 18 10/20/18 18:44 BP 102/53 L 10/20/18 18:44 Pulse Ox 92 L 10/20/18 18:44 Weight: 164 lb 7.437 oz - Exam Quality Assessment: Supplemental Oxygen, DVT Prophylaxis General: Alert, Oriented, Cooperative, Moderate Distress HEENT: Conjunctiva Clear, Hearing Intact, Normal Nasal Septum, Posterior Pharynx Clear, Pupils Equal. No: Mucosa Moist & [place] Neck: Supple, Trachea Midline, +2 Carotid Pulse wo Bruit Lungs: Decreased Breath Sounds, Wheezing. No: Crackles, Rales, Rhonchi, Rub Cardiovascular: Regular Rate, Regular Rhythm, Normal S1, Normal S2. No: Systolic Murmur, Diastolic Murmur GI/Abdominal Exam: Soft, Non-Tender, No Organomegaly, No Distention Back Exam: Normal Inspection, Full Range of Motion Extremities: Non-Tender, No Pedal Edema Skin: Warm, Dry, Intact Neurological: Cranial Nerves Intact, Strength Equal Bilateral, Normal Speech, Normal Tone, Sensation Intact. No: Focal Deficit Neuro Extensive - Mental Status: Alert, Oriented x3, Normal Mood/Affect, Normal Cognition, Memory Intact - Patient Data Lab Results Last 24 hrs: Laboratory Results - last 24 hr 10/20/18 10/20/18 Range/Units 18:27 18:27 WBC 13.5 H (4.5-11.0) K/uL RBC 4.96 (3.30-5.50) M/uL Hgb 14.6 (12.0-15.0) g/dL Hct 44.7 (36.0-48.0) % MCV 90 (80-98) fL MCH 29 (27-31) pg MCHC 33 (32-36) % Plt Count 273 (150-400) K/uL Neut % (Auto) 75 H (36-66) % Lymph % (Auto) 16 L (24-44) % [place] % (Auto) 9 H (2-6) % Eos % (Auto) 1 L (2-4) % Baso % (Auto) 0 (0-1) % Sodium 141 (140-148) mmol/L Potassium 4.3 (3.6-5.2) mmol/L Chloride 101 (100-108) mmol/L Carbon Dioxide 32 (21-32) mmol/L Anion Gap 7.9 (5.0-14.0) mmol/L BUN 20 H (7-18) mg/dL Creatinine 0.6 (0.6-1.0) mg/dL Est Cr Clr Drug Dosing TNP Estimated GFR (MDRD) > 60 (>60) Glucose 120 H (74-106) mg/dL Calcium 9.7 (8.5-10.1) mg/dL Result Diagrams: 10/20/18 18:27 10/20/18 18:27 *Q Meaningful Use (ADM) - VTE Risk Assess *Q Each Risk Factor Represents 1 Point: Age 41 - 59 years, Obesity ( BMI > 25 kg/m2 ), Abnormal Pulmonary Function (COPD) Total Score 1 Point Risk Factors: 3 Each Risk Factor Represents 2 Points: None Total Score 2 Point Risk Factors: 0 Each Risk Factor Represents 3 Points: None Total Score 3 Point Risk Factors: 0 Each Risk Factor Represents 5 Points: None Total Score 5 Point Risk Factors: 0 Venous Thromboembolism Risk Factor Score *Q: 3 Problem List Initiated/Reviewed/Updated: Yes Orders Last 24hrs: Active Orders 24 hr Category Date Time Status Patient Status Manage Transfer [TRANSFER] Routine ADT 10/20/18 19:27 Active Patient Status [ADT] Routine ADT 10/20/18 19:19 Active Ambulate [RC] QID Care 10/20/18 19:19 Active Blood Glucose Check, Bedside [RC] QIDACANDBED Care 10/20/18 19:19 Active Communication Order [RC] STAT Care 10/20/18 19:19 Active Diabetes Education [RC] Click to Edit Care 10/20/18 19:19 Active Height and Weight [RC] DAILY Care 10/20/18 19:19 Active Intake and Output [RC] QSHIFT Care 10/20/18 19:19 Active Notify Provider Vital Signs [RC] ASDIRECTED Care 10/20/18 19:19 Active Notify Provider [RC] PRN Care 10/20/18 19:19 Active Oxygen Therapy [RC] PRN Care 10/20/18 19:19 Active Peripheral IV Care [RC] . DIRECTED Care 10/20/18 19:22 Active Pulse Oximetry [RC] CONTINUOUS Care 10/20/18 19:21 Active RT Aerosol Therapy [RC] ASDIRECTED Care 10/20/18 19:22 Active Up to Chair [RC] QID Care 10/20/18 19:19 Active VTE/DVT Education [RC] Per Unit Routine Care 10/20/18 19:19 Active Vital Signs [RC] Q4H Care 10/20/18 19:19 Active Consistent Carbohydrate Diet [DIET] Diet 10/20/18 Dinner Active BASIC METABOLIC PANEL,BMP [CHEM] AM Lab 10/21/18 05:11 Ordered CBC WITH AUTO DIFF [HEME] AM Lab 10/21/18 05:11 Ordered CULTURE RESPIRATORY + SMEAR [RM] Stat Lab 10/20/18 19:18 Ordered GLUCOSE POC LAB TO COLLECT [POC] QIDACANDBED Lab 10/20/18 21:00 Ordered GLUCOSE POC LAB TO COLLECT [POC] QIDACANDBED Lab 10/21/18 07:30 Ordered GLUCOSE POC LAB TO COLLECT [POC] QIDACANDBED Lab 10/21/18 11:30 Ordered GLUCOSE POC LAB TO COLLECT [POC] QIDACANDBED Lab 10/21/18 16:30 Ordered GLUCOSE POC LAB TO COLLECT [POC] QIDACANDBED Lab 10/21/18 21:00 Ordered GLUCOSE POC LAB TO COLLECT [POC] QIDACANDBED Lab 10/22/18 07:30 Ordered GLUCOSE POC LAB TO COLLECT [POC] QIDACANDBED Lab 10/22/18 11:30 Ordered GLUCOSE POC LAB TO COLLECT [POC] QIDACANDBED Lab 10/22/18 16:30 Ordered GLUCOSE POC LAB TO COLLECT [POC] QIDACANDBED Lab 10/22/18 21:00 Ordered GLUCOSE POC LAB TO COLLECT [POC] QIDACANDBED Lab 10/23/18 07:30 Ordered GLUCOSE POC LAB TO COLLECT [POC] QIDACANDBED Lab 10/23/18 11:30 Ordered GLUCOSE POC LAB TO COLLECT [POC] QIDACANDBED Lab 10/23/18 16:30 Ordered GLUCOSE POC LAB TO COLLECT [POC] QIDACANDBED Lab 10/23/18 21:00 Ordered GLUCOSE POC LAB TO COLLECT [POC] QIDACANDBED Lab 10/24/18 07:30 Ordered GLUCOSE POC LAB TO COLLECT [POC] QIDACANDBED Lab 10/24/18 11:30 Ordered GLUCOSE POC LAB TO COLLECT [POC] QIDACANDBED Lab 10/24/18 16:30 Ordered GLUCOSE POC LAB TO COLLECT [POC] QIDACANDBED Lab 10/24/18 21:00 Ordered GLUCOSE POC LAB TO COLLECT [POC] QIDACANDBED Lab 10/25/18 07:30 Ordered GLUCOSE POC LAB TO COLLECT [POC] QIDACANDBED Lab 10/25/18 11:30 Ordered GLUCOSE POC LAB TO COLLECT [POC] QIDACANDBED Lab 10/25/18 16:30 Ordered MAGNESIUM [CHEM] AM Lab 10/21/18 05:11 Ordered Acetaminophen [Tylenol] Med 10/20/18 19:18 Ordered 650 mg PO Q4H PRN Albuterol [Proventil Neb Soln] Med 10/20/18 19:18 Ordered 2.5 mg NEB Q4H PRN Albuterol/Ipratropium [Combivent Respimat] Med 10/20/18 19:24 Ordered 1 inh INH Q6HR PRN Albuterol/Ipratropium [DuoNeb 3.0-0.5 MG/3 ML] Med 10/20/18 22:00 Ordered 3 ml NEB QID Budesonide/Formoterol [Symbicort 160-4.5 MCG] Med 10/20/18 21:00 Ordered 2 puff IH BID Dextrose 50% in Water Med 10/20/18 19:18 Ordered 50 ml IV ONETIME PRN Dextrose [Glutose 15] Med 10/20/18 19:18 Ordered 15 gm PO ONETIME PRN Doxycycline [Vibramycin] 100 mg Med 10/20/18 19:30 Ordered Sodium Chloride 0.9% [Normal Saline] 100 ml IV Q12HR Enoxaparin [Lovenox] Med 10/20/18 19:30 Ordered 40 mg SUBCUT DAILY Gabapentin [Neurontin] Med 10/20/18 21:00 Ordered 6,300 mg PO BID Insulin Lispro [HumaLOG] Med 10/20/18 20:00 Ordered See Protocol SUBCUT QIDACANDBED Ondansetron [Zofran] Med 10/20/18 19:18 Ordered 4 mg IV Q4H PRN Polyethylene Glycol 3350 [MiraLAX] Med 10/20/18 19:18 Ordered 17 gm PO DAILY PRN Sodium Chloride 0.9% [Normal Saline] 1,000 ml Med 10/20/18 19:30 Ordered IV ASDIRECTED Sodium Chloride 0.9% [Saline Flush] Med 10/20/18 19:18 Ordered 10 ml FLUSH ASDIRECTED PRN Tiotropium [Spiriva HandiHaler] Med 10/21/18 09:00 Ordered DOSE mcg INH DAILY Venlafaxine [Effexor] Med 10/20/18 21:00 Ordered 150 mg PO BID methylPREDNISolone Sod Succ [Solu-MEDROL] Med 10/20/18 19:30 Ordered 40 mg IVPUSH Q6H Peripheral IV Insertion Adult [OM.PC] Routine Oth 10/20/18 19:18 Ordered Resuscitation Status Routine Resus Stat 10/20/18 19:18 Ordered Medication Orders Acetaminophen (Tylenol) 650 mg PO Q4H PRN PRN Reason: Pain (Mild 1-3)/fever Albuterol (Proventil Neb Soln) 2.5 mg NEB Q4H PRN PRN Reason: Shortness Of Breath/wheezing Albuterol/Ipratropium (Duoneb 3.0-0.5 Mg/3 Ml) 3 ml NEB QID [facility] Dextrose (Glutose 15) 15 gm PO ONETIME PRN PRN Reason: Hypoglycemia Dextrose/Water (Dextrose 50% In Water) 50 ml IV ONETIME PRN PRN Reason: Hypoglycemia Enoxaparin Sodium (Lovenox) 40 mg SUBCUT DAILY [facility] Gabapentin (Neurontin) 6,300 mg PO BID [facility] Doxycycline Hyclate 100 mg/ (Sodium Chloride) 100 mls @ 100 mls/hr IV Q12HR [facility] Sodium Chloride (Normal Saline) 1,000 mls @ 125 mls/hr IV ASDIRECTED [facility] Insulin Human Lispro (Humalog) 0 unit SUBCUT QIDACANDBED [facility]; Protocol Methylprednisolone Sodium Succinate (Solu-Medrol) 40 mg IVPUSH Q6H [facility] Non-Formulary Medication (Albuterol/Ipratropium [Combivent Respimat]) 1 inh INH Q6HR PRN PRN Reason: Shortness of Breath Non-Formulary Medication (Budesonide/Formoterol [Symbicort 160-4.5 Mcg]) 2 puff IH BID [facility] Ondansetron HCl (Zofran) 4 mg IV Q4H PRN PRN Reason: Nausea/Vomiting Polyethylene Glycol (Miralax) 17 gm PO DAILY PRN PRN Reason: Constipation Sodium Chloride (Saline Flush) 10 ml FLUSH ASDIRECTED PRN PRN Reason: Keep Vein Open Tiotropium [place] (Spiriva Handihaler) mcg INH DAILY [facility] Venlafaxine HCl (Effexor) 150 mg PO BID [facility] Assessment/Plan Comment:: ASSESSMENT AND PLAN COPD EXACERBATION SECONDARY TO BRONCHITIS-no evidence of underlying pneumonia identified on chest x-ray, white blood cell count is elevated likely secondary to stress of shortness of breath. -Sputum culture pending -Supplemental oxygen as needed -Nebulizer therapy; albuterol, DuoNeb -Solu-Medrol 40 mg IV every 6 hours -Doxycycline 100 mg IV every 12 hours, pending culture results ACUTE HYPOXIC RESPIRATORY FAILURE-secondary to COPD exacerbation and bronchitis -Management as above MAINTENANCE ISSUES -DVT prophylaxis; Lovenox 40 mg subcutaneous daily -GI prophylaxis; not indicated -Jarvis catheter; not indicated -Nutrition; regular diet -Nicotine dependence; she refuses, reports that she recently has been smoking 3- 4 cigarettes per day. She was again counseled concerning the importance of nicotinic cessation CODE STATUS-FULL CODE ADMISSION STATUS-patient will be admitted to inpatient status, expect at least a 2 night hospital stay for evaluation and management of problems as outlined above. At the time of this admission I do not reasonably expected evaluation and management of this problem will require more than a 96 hour hospital stay. DISPOSITION-anticipate discharge to home after the hospital stay. PRIMARY CARE PROVIDER-Suegy PIMENTEL
[2018-10-20] MEDS: Sodium Chloride 0.9% 1,000 ML IV SCH (19:50)
[2018-10-20] MEDS ORDERED: Doxycycline 100 MG in Sodium Chloride 0.9% 100 ML IV SCH (20:00)
[2018-10-20] MEDS ORDERED: metFORMIN 500 MG Tab PO SCH (20:03)
[2018-10-20] MEDS: Venlafaxine 75 MG Tab PO SCH (20:54)
[2018-10-20] MEDS: Gabapentin 300 MG Cap PO SCH (20:54)
[2018-10-20] MEDS: Enoxaparin 40 MG/0.4 ML Syringe SUBCUT SCH (20:54)
[2018-10-20] MEDS ORDERED: Fluticasone-Salmeterol 232-14 MCG Powder Inhalent INH SCH (21:00)
[2018-10-20] MEDS ORDERED: Gabapentin 300 MG Cap PO SCH (21:00)
[2018-10-20] MEDS: Albuterol/Ipratropium 3.0-0.5 MG/3 ML Neb Soln NEB SCH (21:18)
[2018-10-20] MEDS ORDERED: metFORMIN 500 MG Tab PO ONE (21:30)
[2018-10-20] MEDS: Insulin Lispro 100 Unit/ML 3 ML KwikPen SUBCUT SCH (21:40)
[2018-10-20] MEDS: methylPREDNISolone Sodium Succinate 40 MG/1 ML SDV IVPUSH SCH (23:55)
[2018-10-21] MEDS: Albuterol 0.083% 2.5 MG/3 ML Neb Soln NEB PRN ×2 (02:59→17:24)
[2018-10-21] MEDS: Sodium Chloride 0.9% 1,000 ML IV SCH (03:09)
[2018-10-21] MEDS: methylPREDNISolone Sodium Succinate 40 MG/1 ML SDV IVPUSH SCH ×3 (06:01→18:26)
[2018-10-21] MEDS: Albuterol/Ipratropium 3.0-0.5 MG/3 ML Neb Soln NEB SCH ×4 (07:21→20:42)
[2018-10-21] MEDS: Insulin Lispro 100 Unit/ML 3 ML KwikPen SUBCUT SCH ×4 (08:10→21:41)
[2018-10-21] MEDS: Tiotropium Inhaler 18 MCG Inhalation Powder Cap Kit of 5 INH SCH (08:12)
[2018-10-21] MEDS: Fluticasone-Salmeterol 232-14 MCG Powder Inhalent INH SCH ×2 (08:12→20:44)
[2018-10-21] MEDS: Gabapentin 300 MG Cap PO SCH ×2 (08:17→20:42)
[2018-10-21] MEDS: Venlafaxine 75 MG Tab PO SCH ×2 (08:17→20:42)
[2018-10-21] MEDS: metFORMIN 500 MG Tab PO SCH ×2 (08:17→17:29)
[2018-10-21] MEDS: Aspirin 81 MG Tab.EC PO SCH (08:17)
[2018-10-21] MEDS ORDERED: Tiotropium Inhaler 18 MCG Inhalation Powder Cap Kit of 5 INH SCH (09:00)
[2018-10-21] MEDS: Doxycycline 100 MG in Sodium Chloride 0.9% 100 ML IV SCH ×2 (09:34→21:44)
--- NOTE | 2018-10-21 11:29 | PCM.PN ---
- General Info Date of Service: 10/21/18 Subjective Update: There have been no acute events overnight following admission yesterday evening. Shortness of breath has improved significantly but she does continue to be dyspneic with even mild activity. She continues to require supplemental oxygen and is currently on 3 L per nasal cannula. Cough has been mild and nonproductive. She has not had any fevers. No complaints of chest pain. No nausea or vomiting. Functional Status: Reports: Pain Controlled, Tolerating Diet - Review of Systems Pulmonary: Reports: Shortness of Breath, Cough - Patient Data Vitals - Most Recent: Last Vital Signs Temp 36.2 C 10/21/18 11:26 Pulse 97 10/21/18 11:26 Resp 16 10/21/18 11:26 BP 125/56 L 10/21/18 11:26 Pulse Ox 95 10/21/18 11:26 Weight - Most Recent: 75.296 kg I&O - Last 24 Hours: Intake & Output 10/20/18 10/21/18 10/21/18 22:59 06:59 14:59 Intake Total 240 1793 Output Total 350 300 900 Balance -110 1493 -900 Lab Results Last 24 Hours: Laboratory Results - last 24 hr 10/20/18 10/20/18 10/21/18 Range/Units 18:27 18:27 05:19 WBC 13.5 H 11.2 H (4.5-11.0) K/uL RBC 4.96 4.66 (3.30-5.50) M/uL Hgb 14.6 13.8 (12.0-15.0) g/dL Hct 44.7 42.1 (36.0-48.0) % MCV 90 90 (80-98) fL MCH 29 30 (27-31) pg MCHC 33 33 (32-36) % Plt Count 273 243 (150-400) K/uL Neut % (Auto) 75 H 94 H (36-66) % Lymph % (Auto) 16 L 5 L (24-44) % [place] % (Auto) 9 H 1 L (2-6) % Eos % (Auto) 1 L 0 L (2-4) % Baso % (Auto) 0 0 (0-1) % Sodium 141 (140-148) mmol/L Potassium 4.3 (3.6-5.2) mmol/L Chloride 101 (100-108) mmol/L Carbon Dioxide 32 (21-32) mmol/L Anion Gap 7.9 (5.0-14.0) mmol/L BUN 20 H (7-18) mg/dL Creatinine 0.6 (0.6-1.0) mg/dL Est Cr Clr Drug Dosing TNP Estimated GFR (MDRD) > 60 (>60) Glucose 120 H (74-106) mg/dL Calcium 9.7 (8.5-10.1) mg/dL Magnesium (1.8-2.4) mg/dL 10/21/18 Range/Units 05:19 WBC (4.5-11.0) K/uL RBC (3.30-5.50) M/uL Hgb (12.0-15.0) g/dL Hct (36.0-48.0) % MCV (80-98) fL MCH (27-31) pg MCHC (32-36) % Plt Count (150-400) K/uL Neut % (Auto) (36-66) % Lymph % (Auto) (24-44) % [place] % (Auto) (2-6) % Eos % (Auto) (2-4) % Baso % (Auto) (0-1) % Sodium 140 (140-148) mmol/L Potassium 4.9 (3.6-5.2) mmol/L Chloride 102 (100-108) mmol/L Carbon Dioxide 28 (21-32) mmol/L Anion Gap 10.5 (5.0-14.0) mmol/L BUN 21 H (7-18) mg/dL Creatinine 0.6 (0.6-1.0) mg/dL Est Cr Clr Drug Dosing 89.98 Estimated GFR (MDRD) > 60 (>60) Glucose 202 H (74-106) mg/dL Calcium 9.0 (8.5-10.1) mg/dL Magnesium 1.6 L (1.8-2.4) mg/dL Med Orders - Current: Current Medications Acetaminophen (Tylenol) 650 mg PO Q4H PRN PRN Reason: Pain (Mild 1-3)/fever Albuterol (Proventil Neb Soln) 2.5 mg NEB Q4H PRN PRN Reason: Shortness Of Breath/wheezing Last Admin: 10/21/18 02:59 Dose: 2.5 mg Albuterol/Ipratropium (Duoneb 3.0-0.5 Mg/3 Ml) 3 ml NEB QIDRT [facility] Last Admin: 10/21/18 10:44 Dose: 3 ml Aspirin (Halfprin) 81 mg PO DAILY [facility] Last Admin: 10/21/18 08:17 Dose: 81 mg Dextrose (Glutose 15) 15 gm PO ONETIME PRN PRN Reason: Hypoglycemia Dextrose/Water (Dextrose 50% In Water) 50 ml IV ONETIME PRN PRN Reason: Hypoglycemia Enoxaparin Sodium (Lovenox) 40 mg SUBCUT DAILY@2000 [facility] Last Admin: 10/20/18 20:54 Dose: 40 mg Gabapentin (Neurontin) 300 mg PO BID [facility] Last Admin: 10/21/18 08:17 Dose: 300 mg Doxycycline Hyclate 100 mg/ (Sodium Chloride) 100 mls @ 100 mls/hr IV Q12H [facility] Last Admin: 10/21/18 09:34 Dose: 100 mls/hr Magnesium Sulfate 2 gm/ Premix 50 mls @ 12.5 mls/hr IV Q6H [facility] Stop: 10/21/18 21:29 Insulin Human Lispro (Humalog) 0 unit SUBCUT QIDACANDBED [facility]; Protocol Last Admin: 10/21/18 08:10 Dose: 1 units Metformin HCl (Glucophage) 1,000 mg PO BIDMEALS [facility] Last Admin: 10/21/18 08:17 Dose: 1,000 mg Methylprednisolone Sodium Succinate (Solu-Medrol) 40 mg IVPUSH Q6H [facility] Last Admin: 10/21/18 06:01 Dose: 40 mg Ondansetron HCl (Zofran) 4 mg IV Q4H PRN PRN Reason: Nausea/Vomiting Pneumococcal Polyvalent Vaccine (Pneumovax 23) 0.5 ml IM .ONCE ONE Stop: 10/23/18 10:01 Polyethylene Glycol (Miralax) 17 gm PO DAILY PRN PRN Reason: Constipation Fluticasone/Salmeterol (Fluticasone-Salmeterol 232-14 Mcg Powder Inha) 1 puff INH BIDRT [facility] Last Admin: 10/21/18 08:12 Dose: 1 puff Sodium Chloride (Saline Flush) 10 ml FLUSH ASDIRECTED PRN PRN Reason: Keep Vein Open Tiotropium [place] (Spiriva Handihaler) 18 mcg INH DAILY@0700 [facility] Last Admin: 10/21/18 08:12 Dose: 1 cap Venlafaxine HCl (Effexor) 150 mg PO BID [facility] Last Admin: 10/21/18 08:17 Dose: 150 mg Discontinued Medications Albuterol/Ipratropium (Duoneb 3.0-0.5 Mg/3 Ml) 3 ml NEB ONETIME ONE Stop: 10/20/18 18:06 Last Admin: 10/20/18 18:09 Dose: 3 ml Gabapentin (Neurontin) 6,300 mg PO BID [facility] Sodium Chloride (Normal Saline) 1,000 mls @ 125 mls/hr IV ASDIRECTED [facility] Last Admin: 10/20/18 18:26 Dose: 125 mls/hr Doxycycline Hyclate 100 mg/ (Sodium Chloride) 100 mls @ 100 mls/hr IV Q12H [facility] Last Admin: 10/20/18 21:12 Dose: 100 mls/hr Sodium Chloride (Normal Saline) 1,000 mls @ 125 mls/hr IV ASDIRECTED [facility] Last Admin: 10/21/18 03:09 Dose: 125 mls/hr Metformin HCl (Glucophage) 500 mg PO BIDMEALS [facility] Last Admin: 10/20/18 20:54 Dose: 500 mg Metformin HCl (Glucophage) 500 mg PO ONETIME ONE Stop: 10/20/18 21:31 Last Admin: 10/20/18 21:26 Dose: 500 mg Methylprednisolone Sodium Succinate (Solu-Medrol) 125 mg IVPUSH ONETIME ONE Stop: 10/20/18 18:14 Last Admin: 10/20/18 18:26 Dose: 125 mg Non-Formulary Medication (Albuterol/Ipratropium [Combivent Respimat]) 1 inh INH Q6HR PRN PRN Reason: Shortness of Breath Fluticasone/Salmeterol (Fluticasone-Salmeterol 232-14 Mcg Powder Inha) 0 puff INH BID [facility] Last Admin: 10/20/18 21:36 Dose: Not Given - Exam Quality Assessment: Supplemental Oxygen General: Alert, Oriented, Cooperative, No Acute Distress Lungs: Wheezing (diffuse exp wheezing ). No: Normal Respiratory Effort (mild increased work of breathing ) Cardiovascular: Regular Rhythm, Tachycardia GI/Abdominal Exam: Soft, No Distention Extremities: No Pedal Edema. No: Increased Warmth Skin: Warm, Dry Psy/Mental Status: Alert, Normal Affect - Problem List Review Problem List Initiated/Reviewed/Updated: Yes - My Orders Last 24 Hours: My Active Orders 10/21/18 11:27 Convert IV to Saline Lock [OM.PC] Routine 10/21/18 11:30 Magnesium Sulfate/Water [Magnesium Sulfate 2 GM in Water 50 ML] 2 gm Premix Bag 1 bag IV Q6H 10/22/18 05:00 BASIC METABOLIC PANEL,BMP [CHEM] Timed CBC W/O DIFF,HEMOGRAM [HEME] Timed (1) - Plan Plan:: ASSESSMENT AND PLAN COPD EXACERBATION SECONDARY TO BRONCHITIS - clinically improved following admission but still requiring 3 L of supplemental oxygen. Still short of breath with even minimal activity. Tolerating current medication so far. -Follow-up sputum culture -Supplemental oxygen as needed -Nebulizer therapy; albuterol, DuoNeb -Solu-Medrol 40 mg IV every 6 hours -Doxycycline 100 mg IV every 12 hours, pending culture results ACUTE HYPOXIC RESPIRATORY FAILURE - secondary to COPD exacerbation and bronchitis. -Management as above TOBACCO DEPENDENCE - she declines nicotine replacement therapy. Reports that she recently has been smoking 3-4 cigarettes per day. She was counseled concerning the importance of nicotinic cessation at the time of admission. MAINTENANCE ISSUES -DVT prophylaxis; Lovenox 40 mg subcutaneous daily -GI prophylaxis; not indicated -Jarvis catheter; not indicated -Nutrition; regular diet DISPOSITION - anticipate discharge to home after the hospital stay. Jovan Nunez M.D.
[2018-10-21] MEDS: Magnesium Sulfate/Water 2 GM in Premix Bag 1 BAG IV SCH ×2 (12:47→17:29)
[2018-10-21] MEDS: Enoxaparin 40 MG/0.4 ML Syringe SUBCUT SCH (20:42)
[2018-10-22] MEDS: methylPREDNISolone Sodium Succinate 40 MG/1 ML SDV IVPUSH SCH ×4 (00:04→17:17)
[2018-10-22] MEDS: Albuterol 0.083% 2.5 MG/3 ML Neb Soln NEB PRN (03:15)
[2018-10-22] MEDS: Fluticasone-Salmeterol 232-14 MCG Powder Inhalent INH SCH ×2 (07:38→21:10)
[2018-10-22] MEDS: Albuterol/Ipratropium 3.0-0.5 MG/3 ML Neb Soln NEB SCH ×4 (07:38→21:15)
[2018-10-22] MEDS: Tiotropium Inhaler 18 MCG Inhalation Powder Cap Kit of 5 INH SCH (07:38)
[2018-10-22] MEDS: metFORMIN 500 MG Tab PO SCH ×2 (07:52→17:17)
[2018-10-22] MEDS: Insulin Lispro 100 Unit/ML 3 ML KwikPen SUBCUT SCH ×4 (07:53→21:08)
[2018-10-22] MEDS: Aspirin 81 MG Tab.EC PO SCH (08:00)
[2018-10-22] MEDS: Venlafaxine 75 MG Tab PO SCH ×2 (08:00→21:10)
[2018-10-22] MEDS: Gabapentin 300 MG Cap PO SCH ×2 (08:00→21:10)
[2018-10-22] MEDS: Doxycycline 100 MG in Sodium Chloride 0.9% 100 ML IV SCH (08:03)
--- NOTE | 2018-10-22 09:36 | PCM.PN ---
- General Info Date of Service: 10/22/18 Subjective Update: There were no acute events overnight. Shortness of breath is a little better today. Cough is a little better today. No fevers overnight. Still requiring 2-3 L of supplemental oxygen. No abdominal pain or nausea. She is interested in going for a walk today. Functional Status: Reports: Pain Controlled, Tolerating Diet - Review of Systems General: Denies: Fever Pulmonary: Reports: Shortness of Breath, Cough - Patient Data Vitals - Most Recent: Last Vital Signs Temp 35.8 C 10/22/18 07:34 Pulse 99 10/22/18 03:26 Resp 18 10/22/18 07:34 BP 131/53 L 10/22/18 07:34 Pulse Ox 94 L 10/22/18 07:34 Weight - Most Recent: 75.296 kg I&O - Last 24 Hours: Intake & Output 10/21/18 10/22/18 10/22/18 22:59 06:59 14:59 Intake Total 1900 500 Output Total 1800 1500 Balance 100 -1000 Lab Results Last 24 Hours: Laboratory Results - last 24 hr 10/22/18 10/22/18 Range/Units 05:00 05:00 WBC 17.6 H (4.5-11.0) K/uL RBC 4.36 (3.30-5.50) M/uL Hgb 12.8 (12.0-15.0) g/dL Hct 40.6 (36.0-48.0) % MCV 93 (80-98) fL MCH 29 (27-31) pg MCHC 32 (32-36) % Plt Count 260 (150-400) K/uL Sodium 141 (140-148) mmol/L Potassium 4.7 (3.6-5.2) mmol/L Chloride 104 (100-108) mmol/L Carbon Dioxide 29 (21-32) mmol/L Anion Gap 7.8 (5.0-14.0) mmol/L BUN 18 (7-18) mg/dL Creatinine 0.6 (0.6-1.0) mg/dL Est Cr Clr Drug Dosing 89.98 mL/min Estimated GFR (MDRD) > 60 (>60) Glucose 164 H (74-106) mg/dL Calcium 8.8 (8.5-10.1) mg/dL Med Orders - Current: Current Medications Acetaminophen (Tylenol) 650 mg PO Q4H PRN PRN Reason: Pain (Mild 1-3)/fever Albuterol (Proventil Neb Soln) 2.5 mg NEB Q4H PRN PRN Reason: Shortness Of Breath/wheezing Last Admin: 10/22/18 03:15 Dose: 2.5 mg Albuterol/Ipratropium (Duoneb 3.0-0.5 Mg/3 Ml) 3 ml NEB QIDRT [facility] Last Admin: 10/22/18 07:38 Dose: 3 ml Aspirin (Halfprin) 81 mg PO DAILY [facility] Last Admin: 10/22/18 08:00 Dose: 81 mg Dextrose (Glutose 15) 15 gm PO ONETIME PRN PRN Reason: Hypoglycemia Dextrose/Water (Dextrose 50% In Water) 50 ml IV ONETIME PRN PRN Reason: Hypoglycemia Enoxaparin Sodium (Lovenox) 40 mg SUBCUT DAILY@1999 [facility] Last Admin: 10/21/18 20:42 Dose: 40 mg Gabapentin (Neurontin) 300 mg PO BID [facility] Last Admin: 10/22/18 08:00 Dose: 300 mg Doxycycline Hyclate 100 mg/ (Sodium Chloride) 100 mls @ 100 mls/hr IV Q12H [facility] Last Admin: 10/22/18 08:03 Dose: 100 mls/hr Insulin Human Lispro (Humalog) 0 unit SUBCUT QIDACANDBED [facility]; Protocol Last Admin: 10/22/18 07:53 Dose: 2 units Metformin HCl (Glucophage) 1,000 mg PO BIDMEALS [facility] Last Admin: 10/22/18 07:52 Dose: 1,000 mg Methylprednisolone Sodium Succinate (Solu-Medrol) 40 mg IVPUSH Q6H [facility] Last Admin: 10/22/18 05:10 Dose: 40 mg Ondansetron HCl (Zofran) 4 mg IV Q4H PRN PRN Reason: Nausea/Vomiting Pneumococcal Polyvalent Vaccine (Pneumovax 23) 0.5 ml IM .ONCE ONE Stop: 10/23/18 10:01 Polyethylene Glycol (Miralax) 17 gm PO DAILY PRN PRN Reason: Constipation Fluticasone/Salmeterol (Fluticasone-Salmeterol 232-14 Mcg Powder Inha) 1 puff INH BIDRT [facility] Last Admin: 10/22/18 07:38 Dose: 1 puff Sodium Chloride (Saline Flush) 10 ml FLUSH ASDIRECTED PRN PRN Reason: Keep Vein Open Tiotropium [place] (Spiriva Handihaler) 18 mcg INH DAILY@0700 [facility] Last Admin: 10/22/18 07:38 Dose: 1 cap Venlafaxine HCl (Effexor) 150 mg PO BID [facility] Last Admin: 10/22/18 08:00 Dose: 150 mg Discontinued Medications Albuterol/Ipratropium (Duoneb 3.0-0.5 Mg/3 Ml) 3 ml NEB ONETIME ONE Stop: 10/20/18 18:06 Last Admin: 10/20/18 18:09 Dose: 3 ml Gabapentin (Neurontin) 6,300 mg PO BID [facility] Sodium Chloride (Normal Saline) 1,000 mls @ 125 mls/hr IV ASDIRECTED [facility] Last Admin: 10/20/18 18:26 Dose: 125 mls/hr Doxycycline Hyclate 100 mg/ (Sodium Chloride) 100 mls @ 100 mls/hr IV Q12H [facility] Last Admin: 10/20/18 21:12 Dose: 100 mls/hr Sodium Chloride (Normal Saline) 1,000 mls @ 125 mls/hr IV ASDIRECTED [facility] Last Admin: 10/21/18 03:09 Dose: 125 mls/hr Magnesium Sulfate 2 gm/ Premix 50 mls @ 25 mls/hr IV Q6H [facility] Stop: 10/21/18 19:59 Last Admin: 10/21/18 17:29 Dose: 25 mls/hr Metformin HCl (Glucophage) 500 mg PO BIDMEALS [facility] Last Admin: 10/20/18 20:54 Dose: 500 mg Metformin HCl (Glucophage) 500 mg PO ONETIME ONE Stop: 10/20/18 21:31 Last Admin: 10/20/18 21:26 Dose: 500 mg Methylprednisolone Sodium Succinate (Solu-Medrol) 125 mg IVPUSH ONETIME ONE Stop: 10/20/18 18:14 Last Admin: 10/20/18 18:26 Dose: 125 mg Non-Formulary Medication (Albuterol/Ipratropium [Combivent Respimat]) 1 inh INH Q6HR PRN PRN Reason: Shortness of Breath Fluticasone/Salmeterol (Fluticasone-Salmeterol 232-14 Mcg Powder Inha) 0 puff INH BID [facility] Last Admin: 10/20/18 21:36 Dose: Not Given - Exam Quality Assessment: Supplemental Oxygen General: Alert, Oriented, Cooperative, No Acute Distress Lungs: Normal Respiratory Effort, Wheezing (diffuse mid to end exp wheezing ) Cardiovascular: Regular Rate, Regular Rhythm GI/Abdominal Exam: Soft, No Distention Extremities: No Pedal Edema Psy/Mental Status: Alert, Normal Affect - Problem List Review Problem List Initiated/Reviewed/Updated: Yes - My Orders Last 24 Hours: My Active Orders 10/21/18 11:27 Convert IV to Saline Lock [OM.PC] Routine 10/22/18 21:00 Doxycycline [Vibramycin] 100 mg PO BID - Plan Plan:: ASSESSMENT AND PLAN COPD EXACERBATION SECONDARY TO BRONCHITIS - wheezing has improved and symptomatically she feels better today. Still requiring 2-3 L of supplemental oxygen. -Follow-up sputum culture -Supplemental oxygen as needed -Nebulizer therapy; albuterol, DuoNeb -Solu-Medrol 40 mg IV every 6 hours, transition to prednisone tomorrow -Doxycycline 100 mg BID ACUTE HYPOXIC RESPIRATORY FAILURE - secondary to COPD exacerbation and bronchitis. -Management as above TOBACCO DEPENDENCE - she declines nicotine replacement therapy. Reports that she recently has been smoking 3-4 cigarettes per day. She was counseled concerning the importance of nicotinic cessation at the time of admission. MAINTENANCE ISSUES -DVT prophylaxis; Lovenox 40 mg subcutaneous daily -GI prophylaxis; not indicated -Jarvis catheter; not indicated -Nutrition; regular diet DISPOSITION - anticipate discharge to home after the hospital stay. Jovan Nunez M.D.
[2018-10-22] MEDS: Enoxaparin 40 MG/0.4 ML Syringe SUBCUT SCH (21:09)
[2018-10-22] MEDS: Doxycycline 100 MG Cap PO SCH (21:11)
[2018-10-23] MEDS: methylPREDNISolone Sodium Succinate 40 MG/1 ML SDV IVPUSH SCH ×2 (00:09→06:02)
[2018-10-23] MEDS: Albuterol/Ipratropium 3.0-0.5 MG/3 ML Neb Soln NEB SCH ×4 (06:00→20:11)
[2018-10-23] MEDS: Fluticasone-Salmeterol 232-14 MCG Powder Inhalent INH SCH ×2 (07:18→20:14)
[2018-10-23] MEDS: Tiotropium Inhaler 18 MCG Inhalation Powder Cap Kit of 5 INH SCH (07:19)
[2018-10-23] MEDS: metFORMIN 500 MG Tab PO SCH ×2 (07:20→16:42)
[2018-10-23] MEDS: Insulin Lispro 100 Unit/ML 3 ML KwikPen SUBCUT SCH ×4 (07:35→21:06)
[2018-10-23] MEDS: Aspirin 81 MG Tab.EC PO SCH (08:07)
[2018-10-23] MEDS: Doxycycline 100 MG Cap PO SCH ×2 (08:08→20:15)
[2018-10-23] MEDS: Gabapentin 300 MG Cap PO SCH ×2 (08:09→20:15)
[2018-10-23] MEDS: Venlafaxine 75 MG Tab PO SCH ×2 (08:15→20:14)
[2018-10-23] MEDS ORDERED: Pneumococcal Polyvalent-23 Vaccine 0.5 ML SDV IM ONE (10:00)
--- NOTE | 2018-10-23 10:07 | PCM.PN ---
- General Info Date of Service: 10/23/18 Subjective Update: There were no acute events overnight. The patient feels less short of breath today. Cough is fairly minimal with some sputum being produced. She has not had any fevers. She has not had any chest pain. She was able to go for a fairly long walk utilizing supplemental oxygen yesterday. She does continue to require oxygen but is now down to only 2 L. Appetite has been good. Functional Status: Reports: Pain Controlled, Tolerating Diet - Review of Systems Pulmonary: Reports: Shortness of Breath, Cough - Patient Data Vitals - Most Recent: Last Vital Signs Temp 36.9 C 10/23/18 07:05 Pulse 98 10/23/18 07:05 Resp 15 10/23/18 07:05 BP 128/55 L 10/23/18 07:05 Pulse Ox 92 L 10/23/18 08:40 Weight - Most Recent: 75.296 kg I&O - Last 24 Hours: Intake & Output 10/22/18 10/23/18 10/23/18 22:59 06:59 14:59 Intake Total 720 Output Total 350 Balance 370 Med Orders - Current: Current Medications Acetaminophen (Tylenol) 650 mg PO Q4H PRN PRN Reason: Pain (Mild 1-3)/fever Albuterol (Proventil Neb Soln) 2.5 mg NEB Q4H PRN PRN Reason: Shortness Of Breath/wheezing Last Admin: 10/22/18 03:15 Dose: 2.5 mg Albuterol/Ipratropium (Duoneb 3.0-0.5 Mg/3 Ml) 3 ml NEB QIDRT [facility] Last Admin: 10/23/18 06:00 Dose: 3 ml Aspirin (Halfprin) 81 mg PO DAILY [facility] Last Admin: 10/23/18 08:07 Dose: 81 mg Dextrose (Glutose 15) 15 gm PO ONETIME PRN PRN Reason: Hypoglycemia Dextrose/Water (Dextrose 50% In Water) 50 ml IV ONETIME PRN PRN Reason: Hypoglycemia Doxycycline Hyclate (Vibramycin) 100 mg PO BID [facility] Last Admin: 10/23/18 08:08 Dose: 100 mg Enoxaparin Sodium (Lovenox) 40 mg SUBCUT DAILY@1999 [facility] Last Admin: 10/22/18 21:09 Dose: 40 mg Gabapentin (Neurontin) 300 mg PO BID [facility] Last Admin: 10/23/18 08:09 Dose: 300 mg Insulin Human Lispro (Humalog) 0 unit SUBCUT QIDACANDBED [facility]; Protocol Last Admin: 10/23/18 07:35 Dose: 1 units Metformin HCl (Glucophage) 1,000 mg PO BIDMEALS [facility] Last Admin: 10/23/18 07:20 Dose: 1,000 mg Methylprednisolone Sodium Succinate (Solu-Medrol) 40 mg IVPUSH Q6H [facility] Last Admin: 10/23/18 06:02 Dose: 40 mg Ondansetron HCl (Zofran) 4 mg IV Q4H PRN PRN Reason: Nausea/Vomiting Polyethylene Glycol (Miralax) 17 gm PO DAILY PRN PRN Reason: Constipation Fluticasone/Salmeterol (Fluticasone-Salmeterol 232-14 Mcg Powder Inha) 1 puff INH BIDRT [facility] Last Admin: 10/23/18 07:18 Dose: 1 puff Sodium Chloride (Saline Flush) 10 ml FLUSH ASDIRECTED PRN PRN Reason: Keep Vein Open Tiotropium [place] (Spiriva Handihaler) 18 mcg INH DAILY@0700 [facility] Last Admin: 10/23/18 07:19 Dose: 1 cap Venlafaxine HCl (Effexor) 150 mg PO BID [facility] Last Admin: 10/23/18 08:15 Dose: 150 mg Discontinued Medications Albuterol/Ipratropium (Duoneb 3.0-0.5 Mg/3 Ml) 3 ml NEB ONETIME ONE Stop: 10/20/18 18:06 Last Admin: 10/20/18 18:09 Dose: 3 ml Gabapentin (Neurontin) 6,300 mg PO BID [facility] Sodium Chloride (Normal Saline) 1,000 mls @ 125 mls/hr IV ASDIRECTED [facility] Last Admin: 10/20/18 18:26 Dose: 125 mls/hr Doxycycline Hyclate 100 mg/ (Sodium Chloride) 100 mls @ 100 mls/hr IV Q12H [facility] Last Admin: 10/20/18 21:12 Dose: 100 mls/hr Sodium Chloride (Normal Saline) 1,000 mls @ 125 mls/hr IV ASDIRECTED [facility] Last Admin: 10/21/18 03:09 Dose: 125 mls/hr Doxycycline Hyclate 100 mg/ (Sodium Chloride) 100 mls @ 100 mls/hr IV Q12H [facility] Last Admin: 10/22/18 08:03 Dose: 100 mls/hr Magnesium Sulfate 2 gm/ Premix 50 mls @ 25 mls/hr IV Q6H [facility] Stop: 10/21/18 19:59 Last Admin: 10/21/18 17:29 Dose: 25 mls/hr Metformin HCl (Glucophage) 500 mg PO BIDMEALS [facility] Last Admin: 10/20/18 20:54 Dose: 500 mg Metformin HCl (Glucophage) 500 mg PO ONETIME ONE Stop: 10/20/18 21:31 Last Admin: 10/20/18 21:26 Dose: 500 mg Methylprednisolone Sodium Succinate (Solu-Medrol) 125 mg IVPUSH ONETIME ONE Stop: 10/20/18 18:14 Last Admin: 10/20/18 18:26 Dose: 125 mg Non-Formulary Medication (Albuterol/Ipratropium [Combivent Respimat]) 1 inh INH Q6HR PRN PRN Reason: Shortness of Breath Pneumococcal Polyvalent Vaccine (Pneumovax 23) 0.5 ml IM .ONCE ONE Stop: 10/23/18 10:01 Fluticasone/Salmeterol (Fluticasone-Salmeterol 232-14 Mcg Powder Inha) 0 puff INH BID [facility] Last Admin: 10/20/18 21:36 Dose: Not Given - Exam Quality Assessment: Supplemental Oxygen General: Alert, Oriented, Cooperative, No Acute Distress Lungs: Normal Respiratory Effort, Wheezing (mild diffuse end exp). No: Crackles Cardiovascular: Regular Rate, Regular Rhythm GI/Abdominal Exam: Soft, No Distention Extremities: No Pedal Edema Psy/Mental Status: Alert, Normal Affect - Problem List Review Problem List Initiated/Reviewed/Updated: Yes - My Orders Last 24 Hours: My Active Orders 10/22/18 21:00 Doxycycline [Vibramycin] 100 mg PO BID 10/23/18 10:04 Cardiac Monitoring Discontinue [RC] Click to Edit Peripheral IV Discontinue [OM.PC] Routine 10/23/18 16:30 predniSONE 20 mg PO BIDAC - Plan Plan:: ASSESSMENT AND PLAN COPD EXACERBATION SECONDARY TO BRONCHITIS - wheezing has nearly resolved but she continues to require supplemental oxygen. Symptomatically feeling better. -Follow-up sputum culture -Supplemental oxygen as needed -Nebulizer therapy; albuterol, DuoNeb -Transition to prednisone -Doxycycline 100 mg BID ACUTE HYPOXIC RESPIRATORY FAILURE - secondary to COPD exacerbation and bronchitis. -Management as above TOBACCO DEPENDENCE - she declines nicotine replacement therapy. Reports that she recently has been smoking 3-4 cigarettes per day. She was counseled concerning the importance of nicotinic cessation at the time of admission. MAINTENANCE ISSUES -DVT prophylaxis; Lovenox 40 mg subcutaneous daily -GI prophylaxis; not indicated -Jarvis catheter; not indicated -Nutrition; regular diet DISPOSITION - anticipate discharge to home after the hospital stay. Jovan Nunez M.D.
[2018-10-23] MEDS: predniSONE 20 MG Tab PO SCH (16:42)
[2018-10-24] MEDS: Albuterol 0.083% 2.5 MG/3 ML Neb Soln NEB PRN (04:11)
[2018-10-24] MEDS: Fluticasone-Salmeterol 232-14 MCG Powder Inhalent INH SCH (07:14)
[2018-10-24] MEDS: Albuterol/Ipratropium 3.0-0.5 MG/3 ML Neb Soln NEB SCH ×2 (07:14→10:49)
[2018-10-24] MEDS: Tiotropium Inhaler 18 MCG Inhalation Powder Cap Kit of 5 INH SCH (07:14)
[2018-10-24] MEDS: Insulin Lispro 100 Unit/ML 3 ML KwikPen SUBCUT SCH (08:37)
[2018-10-24] MEDS: metFORMIN 500 MG Tab PO SCH (08:38)
[2018-10-24] MEDS: Venlafaxine 75 MG Tab PO SCH (08:39)
[2018-10-24] MEDS: predniSONE 20 MG Tab PO SCH (08:39)
[2018-10-24] MEDS: Aspirin 81 MG Tab.EC PO SCH (08:40)
[2018-10-24] MEDS: Gabapentin 300 MG Cap PO SCH (08:40)
[2018-10-24] MEDS: Doxycycline 100 MG Cap PO SCH (08:41)
--- NOTE | 2018-10-24 09:47 | PCM.DCSUM1 ---
Discharge Summary - Hospital Course Brief History: 57-year-old female with history of COPD and tobacco dependence who presented with cough and shortness of breath. She was admitted for management of bronchitis with COPD exacerbation and hypoxia. Diagnosis: Stroke: No - Discharge Data Discharge Date: 10/24/18 Discharge Disposition: Home, Self-Care 01 Condition: Good - Discharge Diagnosis/Problem(s) (1) Acute bronchitis SNOMED Code(s): 64783775 ICD Code: J20.9 - ACUTE BRONCHITIS, UNSPECIFIED Status: Acute Current Visit: Yes Qualifiers: Bronchitis organism: unspecified organism Qualified Code(s): J20.9 - Acute bronchitis, unspecified (2) COPD with exacerbation SNOMED Code(s): 439565115 ICD Code: J44.1 - CHRONIC OBSTRUCTIVE PULMONARY DISEASE W (ACUTE) EXACERBATION Status: Acute Priority: High Current Visit: Yes (3) Type 2 diabetes mellitus SNOMED Code(s): 96078458 ICD Code: E11.9 - TYPE 2 DIABETES MELLITUS WITHOUT COMPLICATIONS Status: Chronic Current Visit: No Qualifiers: Diabetes mellitus group home insulin use: 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 Workup in the emergency room revealed leukocytosis as well as hypoxia. Chest x-ray was unremarkable. She was diagnosed with acute bronchitis as well as an acute exacerbation of COPD with significant wheezing. She was started on doxycycline as well as IV steroids and admitted to the hospital for further management. She continued to receive doxycycline as well as IV steroids. She received scheduled and as needed nebulizers. She required supplemental oxygen throughout almost the entirety of her hospital stay. She did make slow but steady progress throughout the course of the hospital stay. Wheezing decreased slightly each day before finally resolving on the day of discharge. White blood cell count did bump up slightly after being on the steroids. She has never had a fever. Clinically she has felt better each day throughout the course of the hospital stay. She's been able to increase her activity and has been able to walk a good distances. On the day of discharge she is able to ambulate the entire length of the hospital without supplemental oxygen or significant shortness of breath. Cultures have all been negative. I believe she is safe for discharge to home at this time. She will need 3 additional days of antibiotics and 5 additional days of steroids in a tapering fashion. She will have early follow-up next week. She no longer requires supplemental oxygen. She does have nebulizers and an inhaler at home. - Patient Instructions Diet: Diabetic Diet Activity: As Tolerated Showering/Bathing: May Shower Notify Provider of: Fever, Increased Pain, Nausea and/or Vomiting Other/Special Instructions: 1. You were in the hospital for management of acute bronchitis complicated by an acute exacerbation of COPD. Your condition has been improving with steroids and antibiotics. I recommend ongoing antibiotic therapy with doxycycline. You should take 100 mg twice daily for 6 more doses with your next dose being due tonight. You should also take prednisone 20 for 6 more doses. You should take one dose tonight with supper then then 20 mg daily for five days. Continue to use your inhaler and nebulizer as needed for shortness of breath. 2. Continue your usual home meds as previously prescribed. 3. You may return to work on October 28 without restrictions. 4. Follow up with your primary care early next week or sooner if needed. 5. Seek medical attention if you develop fever greater than 101 degrees, severe shortness of breath or if you have persistent vomiting or diarrhea. - Discharge Plan *PRESCRIPTION DRUG MONITORING PROGRAM REVIEWED*: Not Applicable *COPY OF PRESCRIPTION DRUG MONITORING REPORT IN PATIENT LEYLA: Not Applicable Prescriptions/Med Rec: Doxycycline [Vibramycin] 100 mg PO BID #6 cap predniSONE 20 mg PO DAILY #6 tablet Home Medications: Home Meds Venlafaxine HCl 150 mg PO BID 10/04/13 [History] Albuterol/Ipratropium [Combivent Respimat] 1 inh INH Q6HR PRN 03/18/18 [History] Albuterol/Ipratropium [DuoNeb 3.0-0.5 MG/3 ML] 1 inh INH QID PRN 03/18/18 [ History] Gabapentin [Neurontin] 300 mg PO BID 03/18/18 [History] Budesonide/Formoterol [Symbicort 160-4.5 MCG] 2 puff IH BID 06/09/18 [History] Tiotropium [Spiriva Handihaler] 1 puff IH DAILY 06/09/18 [History] Aspirin 81 mg PO DAILY 10/20/18 [History] metFORMIN HCl [Metformin HCl] 2 tab PO BID 10/20/18 [History] Doxycycline [Vibramycin] 100 mg PO BID #6 cap 10/24/18 [Rx] predniSONE 20 mg PO DAILY #6 tablet 10/24/18 [Rx] Oxygen Therapy Mode: Room Air Patient Handouts: Chronic Obstructive Pulmonary Disease, [id number], Doxycycline tablets or capsules Referrals: Crys Herndon PA-C [Primary Care Provider] - (early next week - f/u hospital stay for bronchitis and copd exacerbation ) - Discharge Summary/Plan Comment DC Time >30 min.: No - Patient Data Vitals - Most Recent: Last Vital Signs Temp 36.8 C 10/24/18 07:09 Pulse 92 10/24/18 07:09 Resp 18 10/24/18 07:09 BP 128/65 10/24/18 07:09 Pulse Ox 92 L 10/24/18 07:09 Weight - Most Recent: 75.296 kg I&O - Last 24 hours: Intake & Output 10/23/18 10/24/18 10/24/18 22:59 06:59 14:59 Intake Total 440 358 4589 Balance [phone] Med Orders - Current: Current Medications Acetaminophen (Tylenol) 650 mg PO Q4H PRN PRN Reason: Pain (Mild 1-3)/fever Albuterol (Proventil Neb Soln) 2.5 mg NEB Q4H PRN PRN Reason: Shortness Of Breath/wheezing Last Admin: 10/24/18 04:11 Dose: 2.5 mg Albuterol/Ipratropium (Duoneb 3.0-0.5 Mg/3 Ml) 3 ml NEB QIDRT [facility] Last Admin: 10/24/18 07:14 Dose: 3 ml Aspirin (Halfprin) 81 mg PO DAILY [facility] Last Admin: 10/24/18 08:40 Dose: 81 mg Dextrose (Glutose 15) 15 gm PO ONETIME PRN PRN Reason: Hypoglycemia Dextrose/Water (Dextrose 50% In Water) 50 ml IV ONETIME PRN PRN Reason: Hypoglycemia Doxycycline Hyclate (Vibramycin) 100 mg PO BID [facility] Last Admin: 10/24/18 08:41 Dose: 100 mg Gabapentin (Neurontin) 300 mg PO BID [facility] Last Admin: 10/24/18 08:40 Dose: 300 mg Insulin Human Lispro (Humalog) 0 unit SUBCUT QIDACANDBED [facility]; Protocol Last Admin: 10/24/18 08:37 Dose: Not Given Metformin HCl (Glucophage) 1,000 mg PO BIDMEALS [facility] Last Admin: 10/24/18 08:38 Dose: 1,000 mg Ondansetron HCl (Zofran) 4 mg IV Q4H PRN PRN Reason: Nausea/Vomiting Polyethylene Glycol (Miralax) 17 gm PO DAILY PRN PRN Reason: Constipation Prednisone (Prednisone) 20 mg PO BIDMEALS [facility] Last Admin: 10/24/18 08:39 Dose: 20 mg Fluticasone/Salmeterol (Fluticasone-Salmeterol 232-14 Mcg Powder Inha) 1 puff INH BIDRT [facility] Last Admin: 10/24/18 07:14 Dose: 1 puff Sodium Chloride (Saline Flush) 10 ml FLUSH ASDIRECTED PRN PRN Reason: Keep Vein Open Tiotropium [place] (Spiriva Handihaler) 18 mcg INH DAILY@0700 [facility] Last Admin: 10/24/18 07:14 Dose: 1 cap Venlafaxine HCl (Effexor) 150 mg PO BID [facility] Last Admin: 10/24/18 08:39 Dose: 150 mg Discontinued Medications Albuterol/Ipratropium (Duoneb 3.0-0.5 Mg/3 Ml) 3 ml NEB ONETIME ONE Stop: 10/20/18 18:06 Last Admin: 10/20/18 18:09 Dose: 3 ml Enoxaparin Sodium (Lovenox) 40 mg SUBCUT DAILY@1999 [facility] Last Admin: 10/22/18 21:09 Dose: 40 mg Gabapentin (Neurontin) 6,300 mg PO BID [facility] Sodium Chloride (Normal Saline) 1,000 mls @ 125 mls/hr IV ASDIRECTED [facility] Last Admin: 10/20/18 18:26 Dose: 125 mls/hr Doxycycline Hyclate 100 mg/ (Sodium Chloride) 100 mls @ 100 mls/hr IV Q12H [facility] Last Admin: 10/20/18 21:12 Dose: 100 mls/hr Sodium Chloride (Normal Saline) 1,000 mls @ 125 mls/hr IV ASDIRECTED [facility] Last Admin: 10/21/18 03:09 Dose: 125 mls/hr Doxycycline Hyclate 100 mg/ (Sodium Chloride) 100 mls @ 100 mls/hr IV Q12H [facility] Last Admin: 10/22/18 08:03 Dose: 100 mls/hr Magnesium Sulfate 2 gm/ Premix 50 mls @ 25 mls/hr IV Q6H [facility] Stop: 10/21/18 19:59 Last Admin: 10/21/18 17:29 Dose: 25 mls/hr Metformin HCl (Glucophage) 500 mg PO BIDMEALS [facility] Last Admin: 10/20/18 20:54 Dose: 500 mg Metformin HCl (Glucophage) 500 mg PO ONETIME ONE Stop: 10/20/18 21:31 Last Admin: 10/20/18 21:26 Dose: 500 mg Methylprednisolone Sodium Succinate (Solu-Medrol) 125 mg IVPUSH ONETIME ONE Stop: 10/20/18 18:14 Last Admin: 10/20/18 18:26 Dose: 125 mg Methylprednisolone Sodium Succinate (Solu-Medrol) 40 mg IVPUSH Q6H [facility] Last Admin: 10/23/18 06:02 Dose: 40 mg Non-Formulary Medication (Albuterol/Ipratropium [Combivent Respimat]) 1 inh INH Q6HR PRN PRN Reason: Shortness of Breath Pneumococcal Polyvalent Vaccine (Pneumovax 23) 0.5 ml IM .ONCE ONE Stop: 10/23/18 10:01 Last Admin: 10/23/18 10:18 Dose: 0.5 ml Fluticasone/Salmeterol (Fluticasone-Salmeterol 232-14 Mcg Powder Inha) 0 puff INH BID [facility] Last Admin: 10/20/18 21:36 Dose: Not Given - Exam Quality Assessment: Denies: Supplemental Oxygen General: Reports: Alert, Oriented, Cooperative, No Acute Distress Lungs: Reports: Normal Respiratory Effort GI/Abdominal Exam: Soft, No Distention Extremities: No Pedal Edema Psy/Mental Status: Reports: Alert, Normal Affect
[2018-10-24 10:47] VITALS: BP 153/74
== END 2018-10-24 11:00 | disposition home or self-care (01) | DRG 190 ==
LOC: JP.ED 17:56 → JP.MS 19:18
PROVIDERS: ADMIT Hospitalist; ATTEND Internal Medicine
DX: J44.0 Chronic obstructive pulmonary disease with (acute) lower respiratory infection (principal); J96.01 Acute respiratory failure with hypoxia; F17.210 Nicotine dependence, cigarettes, uncomplicated; J44.1 Chronic obstructive pulmonary disease with (acute) exacerbation; J20.9 Acute bronchitis, unspecified; Z23 Encounter for immunization; Z87.01 Personal history of pneumonia (recurrent); E11.9 Type 2 diabetes mellitus without complications; Z79.84 Long term (current) use of oral hypoglycemic drugs; R79.82 Elevated C-reactive protein (CRP); Z88.1 Allergy status to other antibiotic agents; Z88.2 Allergy status to sulfonamides; Z88.8 Allergy status to other drugs, medicaments and biological substances; H54.7 Unspecified visual loss; Z90.722 Acquired absence of ovaries, bilateral
CPT/HCPCS: 36415; 71045; 80048; 82962; 83735; 85025; 85027; 90732; 94640; 94762; 96361; 96374; 99285-25; A9270-GY; G0009; J1650; J1815; J2920; J2930; J3475; J3490; J7030; J7620-GY

== ENCOUNTER 2019-07-09 10:06 | Emergency (ER) | payer OTHER ==
--- NOTE | 2019-07-09 10:57 | EDM.PDOC ---
ED HPI GENERAL MEDICAL PROBLEM - General Chief Complaint: Respiratory Problem Stated Complaint: S.O.B. Time Seen by Provider: 07/09/19 10:57 Source of Information: Reports: Patient History Limitations: Reports: No Limitations - History of Present Illness INITIAL COMMENTS - FREE TEXT/NARRATIVE: pt arrived with o2 sats in the 89 range. He was very tight and wheezing. Quite labored. He has a long history of asthma. she continues to smoke 1/2 pack of cigarettes daily. She became labored with her breathing 2 daysago, She has not had a fever. Onset: Other ( started 2 days ago. ) Duration: Hour(s): Location: Reports: Chest Associated Symptoms: Reports: Cough, Diaphoresis, Shortness of Breath, Other ( pt was quite tight and wheezy. ) - Related Data Allergies Allergy/AdvReac Type Severity Reaction Status Date / Time ceftriaxone sodium Allergy Severe Respiratory Verified 07/09/19 10:47 [From Rocephin] Distress bupropion HCl Allergy Other Verified 07/09/19 10:47 [From Wellbutrin] Sulfa (Sulfonamide Allergy Hives Verified 07/09/19 10:47 Antibiotics) Home Meds: Home Meds Venlafaxine HCl 150 mg PO BID 10/04/13 [History] Albuterol/Ipratropium [Combivent Respimat] 1 inh INH Q6HR PRN 03/18/18 [History] Albuterol/Ipratropium [DuoNeb 3.0-0.5 MG/3 ML] 1 inh INH QID PRN 03/18/18 [ History] Gabapentin [Neurontin] 300 mg PO BID 03/18/18 [History] Budesonide/Formoterol [Symbicort 160-4.5 MCG] 2 puff IH BID 06/09/18 [History] Tiotropium [Spiriva Handihaler] 1 puff IH DAILY 06/09/18 [History] Aspirin 81 mg PO DAILY 10/20/18 [History] metFORMIN HCl [Metformin HCl] 2 tab PO BID 10/20/18 [History] atorvaSTATin [Lipitor] 10 mg PO BEDTIME 07/09/19 [History] Past Medical History HEENT History: Reports: Impaired Vision Cardiovascular History: Reports: High Cholesterol Respiratory History: Reports: Asthma, COPD, Pneumonia, Recurrent Genitourinary History: Reports: Renal Calculus 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 DETAIL History: Reports: Other (See Below) Other DRAFTER DETAIL History: ovarian cyst Musculoskeletal History: Reports: Fracture Psychiatric History: Reports: Anxiety, Depression Endocrine/Metabolic History: Reports: Diabetes, Type II - Infectious Disease History Infectious Disease History: Reports: Chicken Pox - Past Surgical History Female Surgical History: Reports: Oophorectomy Other Musculoskeletal Surgeries/Procedures:: right knee surgery Social & Family History - Family History Family Medical History: Noncontributory OBGYN: Reports: Fibroids Musculoskeletal: Reports: Arthritis Psychiatric: Reports: Anxiety, Depression - Tobacco Use Smoking Status *Q: Current Every Day Smoker Years of Tobacco use: 42 Packs/Tins Daily: 0.5 - Caffeine Use Caffeine Use: Reports: Soda ED ROS GENERAL - Review of Systems Review Of Systems: See Below Constitutional: Reports: Fatigue, Diaphoresis HEENT: Reports: No Symptoms Respiratory: Reports: Shortness of Breath, Wheezing, Cough, Sputum Cardiovascular: Reports: No Symptoms Endocrine: Reports: No Symptoms GI/Abdominal: Reports: No Symptoms Musculoskeletal: Reports: No Symptoms Skin: Reports: No Symptoms Neurological: Reports: No Symptoms Psychiatric: Reports: Anxiety ED EXAM, GENERAL - Physical Exam Exam: See Below Free Text/Narrative:: pt has been very sob. She has been wheezing alot the last 2 days. Her o2 sat was in the 80s. She has been using her nebs regularly. Exam Limited By: No Limitations General Appearance: Alert, Anxious, Moderate Distress, Severe Distress Ears: Normal TMs Nose: Normal Inspection Throat/Mouth: Normal Inspection Head: Atraumatic Neck: Normal Inspection Respiratory/Chest: Decreased Breath Sounds, Rhonchi, Wheezing Cardiovascular: Regular Rate, Rhythm, Tachycardia GI/Abdominal: Soft, Non-Tender (Female) Exam: Deferred Rectal (Female) Exam: Deferred Back Exam: Normal Inspection Extremities: Normal Inspection Neurological: Alert, Oriented Psychiatric: Normal Affect Course - Vital Signs Last Recorded V/S: Last Vital Signs Temp 36.0 C 07/09/19 10:45 Pulse 108 H 07/09/19 15:16 Resp 18 07/09/19 15:00 BP 145/64 H 07/09/19 15:00 Pulse Ox 83 L 07/09/19 15:00 - Orders/Labs/Meds Orders: Active Orders 24 hr Category Date Time Status RT Aerosol Therapy [RC] ASDIRECTED Care 07/09/19 11:54 Active RT Aerosol Therapy [RC] ASDIRECTED Care 07/09/19 13:46 Active RT Aerosol Therapy [RC] ASDIRECTED Care 07/09/19 15:08 Active Sodium Chloride 0.9% [Normal Saline] 1,000 ml Med 07/09/19 12:00 Active IV ASDIRECTED Medication Orders Sodium Chloride (Normal Saline) 1,000 mls @ 999 mls/hr IV ASDIRECTED [facility] Last Admin: 07/09/19 12:10 Dose: 999 mls/hr Labs: Laboratory Tests 07/09/19 07/09/19 07/09/19 Range/Units 11:10 11:10 14:27 WBC 19.7 H (4.5-11.0) K/uL RBC 4.61 (3.30-5.50) M/uL Hgb 13.8 (12.0-15.0) g/dL Hct 43.2 (36.0-48.0) % MCV 94 (80-98) fL MCH 30 (27-31) pg MCHC 32 (32-36) % Plt Count 284 (150-400) K/uL Neut % (Auto) 84 H (36-66) % Lymph % (Auto) 8 L (24-44) % [place] % (Auto) 7 H (2-6) % Eos % (Auto) 1 L (2-4) % Baso % (Auto) 0 (0-1) % Sodium 139 L (140-148) mmol/L Potassium 4.2 (3.6-5.2) mmol/L Chloride 100 (100-108) mmol/L Carbon Dioxide 31 (21-32) mmol/L Anion Gap 12.2 (5.0-14.0) mmol/L BUN 11 (7-18) mg/dL Creatinine 0.5 L (0.6-1.0) mg/dL Est Cr Clr Drug Dosing 105.90 mL/min Estimated GFR (MDRD) > 60 (>60) Glucose 118 H (74-106) mg/dL Calcium 9.5 (8.5-10.1) mg/dL Total Bilirubin 0.2 (0.2-1.0) mg/dL AST 23 (15-37) U/L ALT 47 (12-78) U/L Alkaline Phosphatase 126 H (46-116) U/L Total Protein 7.6 (6.4-8.2) g/dL Albumin 3.7 (3.4-5.0) g/dL Globulin 3.9 H (2.3-3.5) g/dL Albumin/Globulin Ratio 1.0 L (1.2-2.2) Urine Color Yellow (YELLOW) Urine Appearance Clear (CLEAR) Urine pH 7.5 (5.0-8.0) Ur Specific [place] 1.020 (1.008-1.030) Urine Protein 30 H (NEGATIVE) mg/dL Urine Glucose (UA) 100 H (NEGATIVE) mg/dL Urine Ketones Negative (NEGATIVE) mg/dL Urine Occult Blood Negative (NEGATIVE) Urine Nitrite Negative (NEGATIVE) Urine Bilirubin Negative (NEGATIVE) Urine Urobilinogen 0.2 (0.2-1.0) EU/dL Ur Leukocyte Esterase Negative (NEGATIVE) Urine RBC Not seen (0-5) Urine WBC Not seen (0-5) Ur Epithelial Cells Rare Amorphous Sediment Not seen Urine Bacteria Rare Urine Mucus Few Meds: Medications Generic Name Dose Route Start Last Admin Trade Name Freq PRN Reason Stop Dose Admin Sodium Chloride 1,000 mls @ 999 mls/hr 07/09/19 12:00 07/09/19 12:10 Normal Saline IV 999 mls/hr ASDIRECTED [facility] Administration Discontinued Medications Generic Name Dose Route Start Last Admin Trade Name Freq PRN Reason Stop Dose Admin Albuterol 2.5 mg 07/09/19 11:54 07/09/19 12:05 Proventil Neb Soln NEB 07/09/19 11:55 2.5 mg ONETIME ONE Administration Albuterol 2.5 mg 07/09/19 13:46 07/09/19 13:56 Proventil Neb Soln NEB 07/09/19 13:47 2.5 mg ONETIME ONE Administration Albuterol/Ipratropium 3 ml 07/09/19 15:08 07/09/19 15:15 Duoneb 3.0-0.5 Mg/3 Ml NEB 07/09/19 15:09 3 ml ONETIME ONE Administration Levofloxacin/Dextrose 500 mg/ 100 mls @ 100 mls/hr 07/09/19 13:13 07/09/19 13 :48 Premix IV 07/09/19 14:12 100 mls/hr ONETIME ONE Administration Methylprednisolone Sodium Succinate 125 mg 07/09/19 11:53 07/09/19 12:10 Solu-Medrol IVPUSH 07/09/19 11:54 125 mg ONETIME ONE Administration Prednisone 30 mg 07/09/19 15:07 07/09/19 15:15 Prednisone PO 07/09/19 15:08 30 mg ONETIME ONE Administration - Re-Assessments/Exams Free Text/Narrative Re-Assessment/Exam: 07/09/19 15:44 pt was nebed x3. She was given solumedrol 125 iv. Later in the day she was given predisone 30 mg. she was given levoquin 500mg iv . She has a wbc of 19, 000. Hospital admission was offered and she refused. She did promise that she would return if she was not getting better. Departure - Departure Time of Disposition: 15:46 Disposition: Home, Self-Care 01 Condition: Fair Clinical Impression: Acute asthma exacerbation, Bronchitis - Discharge Information Referrals: Crys Herndon PA-C [Primary Care Provider] - Forms: ED Department Discharge Care Plan Goals: pt refused hosp admission, tapered dose of predisone, levoquin 500mg daily, use nebs regularly q4h, cool mist humidfier, rtc if not improving. Sepsis Event Note - Evaluation Sepsis Screening Result: No Definite Risk - Focused Exam Vital Signs: Vital Signs Temp Pulse Resp BP Pulse Ox Pulse Ox 07/09/19 15:16 108 H 07/09/19 15:00 127 H 18 145/64 H 83 L 07/09/19 13:57 100 07/09/19 12:05 110 H 90 L 07/09/19 10:45 36.0 C 116 H 20 143/69 H 95 Date Exam was Performed: 07/09/19 Time Exam was Performed: 15:44 - My Orders Last 24 Hours: My Active Orders 07/09/19 11:54 RT Aerosol Therapy [RC] ASDIRECTED 07/09/19 12:00 Sodium Chloride 0.9% [Normal Saline] 1,000 ml IV ASDIRECTED 07/09/19 13:46 RT Aerosol Therapy [RC] ASDIRECTED 07/09/19 15:08 RT Aerosol Therapy [RC] ASDIRECTED - Assessment/Plan Last 24 Hours: My Active Orders 07/09/19 11:54 RT Aerosol Therapy [RC] ASDIRECTED 07/09/19 12:00 Sodium Chloride 0.9% [Normal Saline] 1,000 ml IV ASDIRECTED 07/09/19 13:46 RT Aerosol Therapy [RC] ASDIRECTED 07/09/19 15:08 RT Aerosol Therapy [RC] ASDIRECTED
[2019-07-09] MEDS ORDERED: methylPREDNISolone Sodium Succinate 125 MG/2 ML SDV IVPUSH ONE (11:53)
[2019-07-09] MEDS ORDERED: Albuterol 0.083% 2.5 MG/3 ML Neb Soln NEB ONE ×2 (11:54→13:46)
[2019-07-09] MEDS ORDERED: Sodium Chloride 0.9% 1,000 ML IV SCH (12:00)
[2019-07-09] MEDS ORDERED: Levofloxacin/Dextrose 5%-Water 500 MG in Premix Bag 1 BAG IV ONE (13:13)
--- NOTE | 2019-07-09 13:35 | CRLCR ---
INDICATION: Shortness of breath and wheezing. COMPARISON: 03/19/2018 and 10/20/2018. FINDINGS: PA and lateral views of the chest were obtained. The cardiac silhouette and pulmonary vasculature are within normal limits. The lungs are clear bilaterally. IMPRESSION: Stable chest x-ray. No evidence of acute pulmonary disease. Dictated by Rodríguez Gooden MD @ 07/09/2019 1:33:49 PM Dictated by: Rodríguez Gooden MD @ 07/09/2019 13:34:14 (Electronically Signed)
[2019-07-09 15:02] VITALS: BP 145/64
[2019-07-09] MEDS ORDERED: predniSONE 20 MG Tab PO ONE (15:07)
[2019-07-09] MEDS ORDERED: Albuterol/Ipratropium 3.0-0.5 MG/3 ML Neb Soln NEB ONE (15:08)
[2019-07-09 15:17] VITALS: PULSE 108
== END 2019-07-09 16:01 | disposition home or self-care (01) ==
LOC: JP.ED 10:06
DX: J45.901 Unspecified asthma with (acute) exacerbation (principal); H54.7 Unspecified visual loss; E78.00 Pure hypercholesterolemia, unspecified; F32.9 Major depressive disorder, single episode, unspecified; F41.9 Anxiety disorder, unspecified; E11.9 Type 2 diabetes mellitus without complications; F17.200 Nicotine dependence, unspecified, uncomplicated; Z79.84 Long term (current) use of oral hypoglycemic drugs; Z79.82 Long term (current) use of aspirin; Z79.899 Other long term (current) drug therapy
CPT/HCPCS: 36415; 71046; 80053; 81001; 85025; 94640; 96361; 96365; 96375; 99285; A9270; J1956; J2930; J7030; J7620-GY

== ENCOUNTER 2019-08-29 12:20 | Inpatient (IN) | payer OTHER ==
[2019-08-29] MEDS ORDERED: predniSONE 10 MG Tab PO ONE (13:09)
[2019-08-29] MEDS ORDERED: Albuterol 0.083% 2.5 MG/3 ML Neb Soln NEB ONE (13:09)
--- NOTE | 2019-08-29 13:15 | EDM.PDOC ---
ED HPI GENERAL MEDICAL PROBLEM - General Chief Complaint: Respiratory Problem Stated Complaint: TROUBLE BREATHING Time Seen by Provider: 08/29/19 13:05 Source of Information: Reports: Patient, Old Records History Limitations: Reports: No Limitations - History of Present Illness INITIAL COMMENTS - FREE TEXT/NARRATIVE: 58 yo female with known COPD/asthma and who still smokes has been having increasing SOB and wheezing for the past 2 days. Has not been seen by her primary. No fever. Had a Duoneb before arrival with incomplete resolution. Here with her . Onset: Gradual Onset Date: 08/27/19 Duration: Day(s): (2), Getting Worse Location: Reports: Chest Quality: Reports: Other (mild tightness) Severity: Mild Improves with: Reports: Medication (asthma meds) Worsens with: Reports: Other (infections/smoking-was exposed to a respiratory virus earier this week. ) Context: Reports: Other (see HPI) Associated Symptoms: Reports: Shortness of Breath. 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 below) (Duoneb) Right Chest Pain Score (Numeric/FACES): 6 - Related Data Allergies Allergy/AdvReac Type Severity Reaction Status Date / Time ceftriaxone sodium Allergy Severe Respiratory Verified 08/29/19 13:03 [From Rocephin] Distress bupropion HCl Allergy Other Verified 08/29/19 13:03 [From Wellbutrin] Sulfa (Sulfonamide Allergy Hives Verified 08/29/19 13:03 Antibiotics) Home Meds: Home Meds Venlafaxine HCl 150 mg PO BID 10/04/13 [History] Albuterol/Ipratropium [Combivent Respimat] 1 inh INH Q6HR PRN 03/18/18 [History] Albuterol/Ipratropium [DuoNeb 3.0-0.5 MG/3 ML] 1 inh INH QID PRN 03/18/18 [ History] Gabapentin [Neurontin] 300 mg PO BID 03/18/18 [History] Aspirin 81 mg PO DAILY 10/20/18 [History] metFORMIN HCl [Metformin HCl] 2 tab PO BID 10/20/18 [History] atorvaSTATin [Lipitor] 10 mg PO BEDTIME 07/09/19 [History] Past Medical History HEENT History: Reports: Impaired Vision Cardiovascular History: Reports: High Cholesterol Respiratory History: Reports: Asthma, COPD, Pneumonia, Recurrent Genitourinary History: Reports: Renal Calculus 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 (See Below) Other AZURE PRINCIPAL SOLUTION SPECIALIST History: ovarian cyst Musculoskeletal History: Reports: Fracture Psychiatric History: Reports: Anxiety, Depression Endocrine/Metabolic History: Reports: Diabetes, Type II - Infectious Disease History Infectious Disease History: Reports: Chicken Pox - Past Surgical History Female Surgical History: Reports: Oophorectomy Other Musculoskeletal Surgeries/Procedures:: right knee surgery Social & Family History - Family History Family Medical History: Noncontributory OBGYN: Reports: Fibroids Musculoskeletal: Reports: Arthritis Psychiatric: Reports: Anxiety, Depression - Tobacco Use Smoking Status *Q: Current Every Day Smoker Years of Tobacco use: 40 Packs/Tins Daily: 0.2 - Caffeine Use Caffeine Use: Reports: None - Recreational Drug Use Recreational Drug Use: No ED ROS GENERAL - Review of Systems Review Of Systems: See Below Constitutional: Reports: No Symptoms HEENT: Reports: No Symptoms Respiratory: Reports: Shortness of Breath, Wheezing, Cough. Denies: Pleuritic Chest Pain, Sputum, Hemoptysis Cardiovascular: Reports: No Symptoms GI/Abdominal: Reports: No Symptoms Skin: Reports: No Symptoms Neurological: Reports: No Symptoms ED EXAM, GENERAL - Physical Exam Exam: See Below Exam Limited By: No Limitations General Appearance: Alert, WD/WN, No Apparent Distress Eye Exam: Bilateral Eye: Normal Inspection Ears: Normal External Exam, Normal Canal, Hearing Grossly Normal, Normal TMs Ear Exam: Bilateral Ear: Auricle Normal, Canal Normal, TM normal Nose: Normal Inspection, No Blood Throat/Mouth: Normal Inspection, Normal Lips, Normal Oropharynx, Normal Voice, No Airway Compromise Head: Atraumatic, Normocephalic Neck: Normal Inspection Respiratory/Chest: No Respiratory Distress, No Accessory Muscle Use, Wheezing Cardiovascular: Regular Rate, Rhythm, No Edema Extremities: Normal Inspection Neurological: Alert, Oriented, CN II-XII Intact, Normal Cognition, No Motor/ Sensory Deficits Psychiatric: Normal Affect, Normal Mood Skin Exam: Warm, Dry, Intact, Normal Color, No Rash Course - Vital Signs Text/Narrative:: Dr. Nunez called @ 1423h Last Recorded V/S: Last Vital Signs Temp 36.6 C 09/01/19 15:40 Pulse 105 H 09/01/19 15:40 Resp 20 09/01/19 15:40 BP 141/60 H 09/01/19 15:40 Pulse Ox 92 L 09/01/19 15:40 - Orders/Labs/Meds Orders: Medication Orders Acetaminophen (Tylenol) 650 mg PO Q4H PRN PRN Reason: Pain (Mild 1-3)/fever Last Admin: 08/31/19 14:10 Dose: 650 mg Admin: 08/31/19 07:19 Dose: 650 mg Admin: 08/29/19 16:56 Dose: 650 mg Albuterol (Proventil Neb Soln) 2.5 mg NEB Q4H PRN PRN Reason: Shortness Of Breath/wheezing Last Admin: 09/01/19 09:40 Dose: 2.5 mg Admin: 09/01/19 01:33 Dose: 2.5 mg Admin: 08/31/19 18:16 Dose: 2.5 mg Admin: 08/31/19 03:06 Dose: 2.5 mg Admin: 08/30/19 23:20 Dose: 2.5 mg Admin: 08/30/19 16:13 Dose: 2.5 mg Admin: 08/30/19 02:52 Dose: 2.5 mg Admin: 08/29/19 19:44 Dose: 2.5 mg Albuterol/Ipratropium (Duoneb 3.0-0.5 Mg/3 Ml) 3 ml NEB QIDRT [facility] Last Admin: 09/01/19 14:52 Dose: 3 ml Admin: 09/01/19 10:54 Dose: 3 ml Admin: 09/01/19 06:00 Dose: 3 ml Admin: 08/31/19 21:33 Dose: 3 ml Admin: 08/31/19 14:51 Dose: 3 ml Admin: 08/31/19 10:49 Dose: 3 ml Admin: 08/31/19 07:24 Dose: 3 ml Admin: 08/30/19 20:20 Dose: 3 ml Admin: 08/30/19 14:43 Dose: 3 ml Admin: 08/30/19 11:59 Dose: 3 ml Admin: 08/30/19 07:59 Dose: 3 ml Admin: 08/29/19 21:53 Dose: 3 ml Admin: 08/29/19 16:57 Dose: 3 ml Aspirin (Aspirin) 81 mg PO DAILY [facility] Last Admin: 09/01/19 09:33 Dose: 81 mg Admin: 08/31/19 09:47 Dose: 81 mg Admin: 08/30/19 08:24 Dose: 81 mg Atorvastatin Calcium (Lipitor) 10 mg PO BEDTIME [facility] Last Admin: 08/31/19 21:36 Dose: 10 mg Admin: 08/30/19 20:43 Dose: 10 mg Admin: 08/29/19 21:54 Dose: 10 mg Benzonatate (Tessalon Perles) 100 mg PO TID PRN PRN Reason: Cough Last Admin: 09/01/19 08:02 Dose: 100 mg Admin: 08/31/19 07:20 Dose: 100 mg Doxycycline Hyclate (Vibramycin) 100 mg PO Q12H [facility] Last Admin: 09/01/19 17:30 Dose: 100 mg Admin: 09/01/19 05:55 Dose: 100 mg Admin: 08/31/19 17:17 Dose: 100 mg Admin: 08/31/19 06:45 Dose: 100 mg Admin: 08/30/19 17:17 Dose: 100 mg Admin: 08/30/19 06:14 Dose: 100 mg Admin: 08/29/19 18:00 Dose: 100 mg Gabapentin (Neurontin) 300 mg PO BID [facility] Last Admin: 09/01/19 09:33 Dose: 300 mg Admin: 08/31/19 21:36 Dose: 300 mg Admin: 08/31/19 09:47 Dose: 300 mg Admin: 08/30/19 20:43 Dose: 300 mg Admin: 08/30/19 08:24 Dose: 300 mg Admin: 08/29/19 21:54 Dose: 300 mg Guaifenesin/Codeine Phosphate (Robitussin Ac) 15 ml PO Q4H PRN PRN Reason: Cough Last Admin: 09/01/19 08:02 Dose: 15 ml Admin: 09/01/19 01:48 Dose: 15 ml Ibuprofen (Motrin) 600 mg PO Q6H PRN PRN Reason: Pain/Fever Last Admin: 08/29/19 16:57 Dose: 600 mg Insulin Human Lispro (Humalog) 0 unit SUBCUT QIDACANDBED [facility]; Protocol Last Admin: 09/01/19 17:29 Dose: 4 units Admin: 09/01/19 11:32 Dose: 2 units Admin: 09/01/19 08:05 Dose: 2 units Admin: 08/31/19 21:37 Dose: 4 units Admin: 08/31/19 17:16 Dose: 2 units Lorazepam (Ativan) 0.5 mg IVPUSH Q4H PRN PRN Reason: Nausea/Vomiting Last Admin: 08/31/19 07:20 Dose: 0.5 mg Magnesium Hydroxide (Milk Of Magnesia) 30 ml PO Q12H PRN PRN Reason: Constipation Melatonin (Melatonin) 9 mg PO BEDTIME PRN PRN Reason: Sleep Metformin HCl (Glucophage) 1,000 mg PO BIDMEALS [facility] Last Admin: 09/01/19 17:30 Dose: 1,000 mg Admin: 09/01/19 08:05 Dose: 1,000 mg Admin: 08/31/19 17:13 Dose: 1,000 mg Admin: 08/31/19 07:53 Dose: 1,000 mg Admin: 08/30/19 17:17 Dose: 1,000 mg Admin: 08/30/19 08:23 Dose: 1,000 mg Admin: 08/29/19 16:57 Dose: 1,000 mg Ondansetron HCl (Zofran Odt) 4 mg PO Q6H PRN PRN Reason: Nausea able to take PO Ondansetron HCl (Zofran) 4 mg IV Q6H PRN PRN Reason: Nausea/Vomiting Prednisone (Prednisone) 40 mg PO WITHBREAKFAST [facility] Last Admin: 09/01/19 08:04 Dose: 40 mg Admin: 08/31/19 07:53 Dose: 40 mg Admin: 08/30/19 08:23 Dose: 40 mg Senna/Docusate Sodium (Senna Plus) 1 tab PO BID PRN PRN Reason: Constipation Sodium Chloride (Saline Flush) 10 ml FLUSH ASDIRECTED PRN PRN Reason: Keep Vein Open Last Admin: 08/29/19 15:15 Dose: 10 ml Venlafaxine HCl (Effexor) 150 mg PO BID [facility] Last Admin: 09/01/19 08:08 Dose: 150 mg Admin: 08/31/19 21:36 Dose: 150 mg Admin: 08/31/19 09:47 Dose: 150 mg Admin: 08/30/19 20:43 Dose: 150 mg Admin: 08/30/19 08:24 Dose: 150 mg Admin: 08/29/19 21:53 Dose: 150 mg Labs: Laboratory Tests 08/29/19 08/29/19 Range/Units 13:10 14:06 WBC 13.8 H (4.5-11.0) K/uL RBC 4.71 (3.30-5.50) M/uL Hgb 13.8 (12.0-15.0) g/dL Hct 44.7 (36.0-48.0) % MCV 95 (80-98) fL MCH 29 (27-31) pg MCHC 31 L (32-36) % Plt Count 269 (150-400) K/uL Sodium 143 (140-148) mmol/L Potassium 4.3 (3.6-5.2) mmol/L Chloride 104 (100-108) mmol/L Carbon Dioxide 31 (21-32) mmol/L Anion Gap 8.5 (5.0-14.0) mmol/L BUN 12 (7-18) mg/dL Creatinine 0.6 (0.6-1.0) mg/dL Est Cr Clr Drug Dosing 88.25 mL/min Estimated GFR (MDRD) > 60 (>60) Glucose 117 H (74-106) mg/dL Calcium 8.9 (8.5-10.1) mg/dL Meds: Medications Generic Name Dose Route Start Last Admin Trade Name Freq PRN Reason Stop Dose Admin Acetaminophen 650 mg 08/29/19 15:55 08/31/19 14:10 Tylenol PO 650 mg Q4H PRN Administration Pain (Mild 1-3)/fever Albuterol 2.5 mg 08/29/19 15:55 09/01/19 09:40 Proventil Neb Soln NEB 2.5 mg Q4H PRN Administration Shortness Of Breath/wheezing Albuterol/Ipratropium 3 ml 08/29/19 16:00 09/01/19 14:52 Duoneb 3.0-0.5 Mg/3 Ml NEB 3 ml QIDRT EVELYN Administration Aspirin 81 mg 08/30/19 09:00 09/01/19 09:33 Aspirin PO 81 mg DAILY EVELYN Administration Atorvastatin Calcium 10 mg 08/29/19 21:00 08/31/19 21:36 Lipitor PO 10 mg BEDTIME EVELYN Administration Benzonatate 100 mg 08/29/19 15:55 09/01/19 08:02 Tessalon Perles PO 100 mg TID PRN Administration Cough Doxycycline Hyclate 100 mg 08/29/19 18:00 09/01/19 17:30 Vibramycin PO 100 mg Q12H EVELYN Administration Gabapentin 300 mg 08/29/19 21:00 09/01/19 09:33 Neurontin PO 300 mg BID EVELYN Administration Guaifenesin/Codeine Phosphate 15 ml 08/31/19 10:58 09/01/19 08:02 Robitussin Ac PO 15 ml Q4H PRN Administration Cough Ibuprofen 600 mg 08/29/19 15:55 08/29/19 16:57 Motrin PO 600 mg Q6H PRN Administration Pain/Fever Insulin Human Lispro 0 unit 08/31/19 17:00 09/01/19 17:29 Humalog SUBCUT 4 units QIDACANDBED EVELYN Administration Protocol Lorazepam 0.5 mg 08/29/19 15:55 08/31/19 07:20 Ativan IVPUSH 0.5 mg Q4H PRN Administration Nausea/Vomiting Magnesium Hydroxide 30 ml 08/29/19 15:55 Milk Of Magnesia PO Q12H PRN Constipation Melatonin 9 mg 08/29/19 15:55 Melatonin PO BEDTIME PRN Sleep Metformin HCl 1,000 mg 08/29/19 17:00 09/01/19 17:30 Glucophage PO 1,000 mg BIDMEALS EVELYN Administration Ondansetron HCl 4 mg 08/29/19 15:55 Zofran Odt PO Q6H PRN Nausea able to take PO Ondansetron HCl 4 mg 08/29/19 15:55 Zofran IV Q6H PRN Nausea/Vomiting Prednisone 40 mg 08/30/19 08:00 09/01/19 08:04 Prednisone PO 40 mg WITHBREAKFAST EVELYN Administration Senna/Docusate Sodium 1 tab 08/29/19 15:55 Senna Plus PO BID PRN Constipation Sodium Chloride 10 ml 08/29/19 14:25 08/29/19 15:15 Saline Flush FLUSH 10 ml ASDIRECTED PRN Administration Keep Vein Open Venlafaxine HCl 150 mg 08/29/19 21:00 09/01/19 08:08 Effexor PO 150 mg BID EVELYN Administration Discontinued Medications Generic Name Dose Route Start Last Admin Trade Name Freq PRN Reason Stop Dose Admin Albuterol 2.5 mg 08/29/19 13:09 08/29/19 13:16 Proventil Neb Soln NEB 08/29/19 13:10 2.5 mg ONETIME ONE Administration Guaifenesin/Codeine Phosphate 10 ml 08/29/19 15:55 08/31/19 09:49 Robitussin Ac PO 10 ml Q4H PRN Administration Cough Methylprednisolone Sodium Succinate 62.5 mg 08/31/19 14:00 08/31/19 14:04 Solu-Medrol IVPUSH 08/31/19 14:01 62.5 mg ONETIME ONE Administration Prednisone 40 mg 08/29/19 13:09 08/29/19 13:16 Prednisone PO 08/29/19 13:10 40 mg ONETIME ONE Administration - Radiology Interpretation Free Text/Narrative:: CXR-neg Departure - Departure Time of Disposition: 14:35 Disposition: Admitted As Inpatient 66 Condition: Fair Clinical Impression: COPD exacerbation, Tobacco abuse - Discharge Information *PRESCRIPTION DRUG MONITORING PROGRAM REVIEWED*: Not Applicable *COPY OF PRESCRIPTION DRUG MONITORING REPORT IN PATIENT LEYLA: Not Applicable Sepsis Event Note - Evaluation Sepsis Screening Result: Possible Sepsis Risk - Focused Exam Date Exam was Performed: 09/01/19 Time Exam was Performed: 18:01
[2019-08-29] MEDS ORDERED: Sodium Chloride 0.9% 10 ML Syringe FLUSH PRN (14:25)
--- NOTE | 2019-08-29 14:51 | CR ---
CHEST: 2 view CLINICAL HISTORY:Wheezing, SOB COMPARISON: July 09 2019 FINDINGS: Heart size and pulmonary vascularity are normal. There is mild prominence of the perihilar lung markings. There is generalized prominence of interstitial markings. This is similar to prior study. There is patchy density in the left lower lobe. This is also seen on prior studies. It may be increased slightly. Impression: Prominent lung markings. This is seen on prior studies. They may be increased slightly. This could represent a bronchiolitis.
--- NOTE | 2019-08-29 15:20 | PCM.HP.2 ---
H&P History of Present Illness - General Date of Service: 08/29/19 Admit Problem/Dx: Admission Diagnosis/Problem Admission Diagnosis/Problem Acute bronchitis Source of Information: Patient, Provider History Limitations: Reports: No Limitations - History of Present Illness Initial Comments - Free Text/Narative: CC: I'm short of breath HPI: Alyx presents to the emergency room today with 2 days of progressive shortness of breath as well as cough. Cough has been loose but not productive. Shortness of breath has progressed steadily over the past 2+ days to the point that she is winded walking even 10 feet. She has been using her nebulizers at home and they are not helping much today. They did provide some relief yesterday. She is not aware of any fevers or chills. She has noted audible wheezing today. She does report some mild achy pain in the right mid upper back that is worse with taking breaths. She has not taken anything to make it feel better. She does not notice the pain unless she coughs or takes a deep breath. This pain has slowly been getting worse. Energy is decreased but she has not noticed a change in her appetite. No change in bowel or bladder function. No lower extremity swelling. No obvious sick contacts but she was at a several days ago. Work-up in the emergency room was concerning for acute bronchitis and an exacerbation of her COPD. She has hypoxic and requiring supplemental oxygen. She has received prednisone in the emergency room. She will be admitted for management of a COPD exacerbation secondary to bronchitis with hypoxia. Right Chest Pain Score (Numeric/FACES): 6 - Related Data Allergies/Adverse Reactions: Allergies Allergy/AdvReac Type Severity Reaction Status Date / Time ceftriaxone sodium Allergy Severe Respiratory Verified 08/29/19 13:03 [From Rocephin] Distress bupropion HCl Allergy Other Verified 08/29/19 13:03 [From Wellbutrin] Sulfa (Sulfonamide Allergy Hives Verified 08/29/19 13:03 Antibiotics) Home Medications: Home Meds Venlafaxine HCl 150 mg PO BID 10/04/13 [History] Albuterol/Ipratropium [Combivent Respimat] 1 inh INH Q6HR PRN 03/18/18 [History] Albuterol/Ipratropium [DuoNeb 3.0-0.5 MG/3 ML] 1 inh INH QID PRN 03/18/18 [ History] Gabapentin [Neurontin] 300 mg PO BID 03/18/18 [History] Aspirin 81 mg PO DAILY 10/20/18 [History] metFORMIN HCl [Metformin HCl] 2 tab PO BID 10/20/18 [History] atorvaSTATin [Lipitor] 10 mg PO BEDTIME 07/09/19 [History] Past Medical History HEENT History: Reports: Impaired Vision Cardiovascular History: Reports: High Cholesterol Respiratory History: Reports: Asthma, COPD, Pneumonia, Recurrent Genitourinary History: Reports: Renal Calculus 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) Other OB/BYN History: ovarian cyst Musculoskeletal History: Reports: Fracture Psychiatric History: Reports: Anxiety, Depression Endocrine/Metabolic History: Reports: Diabetes, Type II - Infectious Disease History Infectious Disease History: Reports: Chicken Pox - Past Surgical History Female Surgical History: Reports: Oophorectomy Other Musculoskeletal Surgeries/Procedures:: right knee surgery Social & Family History - Family History Family Medical History: Noncontributory OBGYN: Reports: Fibroids Musculoskeletal: Reports: Arthritis Psychiatric: Reports: Anxiety, Depression - Tobacco Use Smoking Status *Q: Current Every Day Smoker Years of Tobacco use: 40 Packs/Tins Daily: 0.2 - Caffeine Use Caffeine Use: Reports: None - Recreational Drug Use Recreational Drug Use: No H&P Review of Systems - Review of Systems: Review Of Systems: See Below Free Text/Narrative: A complete 12 point review of systems was obtained. Pertinent positives and negatives are noted in the history of present illness. All other systems were reviewed and were negative except as noted. Exam - Exam Exam: See Below - Vital Signs Vital Signs: Last Vital Signs Temp 36.8 C 08/29/19 13:09 Pulse 105 H 08/29/19 13:09 Resp 24 H 08/29/19 13:09 BP 168/72 H 08/29/19 13:09 Pulse Ox 93 L 08/29/19 13:09 Weight: 77.111 kg - Exam Quality Assessment: Supplemental Oxygen General: Alert, Oriented, Cooperative, Mild Distress HEENT: Conjunctiva Clear, Posterior Pharynx Clear. No: Mucosa Moist & [place] (dry ), Scleral Icterus Neck: Supple, Trachea Midline. No: Lymphadenopathy Lungs: Rhonchi (Mild and lower lungs), Wheezing (Diffuse expiratory wheezing). No: Normal Respiratory Effort (Mild increase in work of breathing) Cardiovascular: Regular Rate, Regular Rhythm. No: Systolic Murmur GI/Abdominal Exam: Normal Bowel Sounds, Soft, Non-Tender Back Exam: Normal Inspection, Full Range of Motion Extremities: No Pedal Edema. No: Increased Warmth Peripheral Pulses: 2+: Dorsalis Pedis (L), Dorsalis Pedis (R) Skin: Warm, Dry Neuro Extensive - Mental Status: Alert, Oriented x3, Nl Response to Commands Neuro Extensive - Motor, Sensory, Reflexes: No: Dysarthria, Abnormal Motor, Tremor Psychiatric: Alert, Normal Affect - Patient Data Lab Results Last 24 hrs: Laboratory Results - last 24 hr 08/29/19 08/29/19 Range/Units 13:10 14:06 WBC 13.8 H (4.5-11.0) K/uL RBC 4.71 (3.30-5.50) M/uL Hgb 13.8 (12.0-15.0) g/dL Hct 44.7 (36.0-48.0) % MCV 95 (80-98) fL MCH 29 (27-31) pg MCHC 31 L (32-36) % Plt Count 269 (150-400) K/uL Sodium 143 (140-148) mmol/L Potassium 4.3 (3.6-5.2) mmol/L Chloride 104 (100-108) mmol/L Carbon Dioxide 31 (21-32) mmol/L Anion Gap 8.5 (5.0-14.0) mmol/L BUN 12 (7-18) mg/dL Creatinine 0.6 (0.6-1.0) mg/dL Est Cr Clr Drug Dosing 88.25 mL/min Estimated GFR (MDRD) > 60 (>60) Glucose 117 H (74-106) mg/dL Calcium 8.9 (8.5-10.1) mg/dL Result Diagrams: 08/29/19 13:10 08/29/19 14:06 Imaging Impressions Last 24 hrs: Chest [id number] personally reviewed-lungs are clear with no obvious mass, infiltrate or effusion. Heart size is normal. The radiologist did mention increased lung markings that could be consistent with bronchiolitis but this was similar to previous x-rays. Sepsis Event Note - Evaluation Sepsis Screening Result: Possible Sepsis Risk - Focused Exam Vital Signs: Vital Signs Temp Pulse Resp BP Pulse Ox 08/29/19 13:09 36.8 C 105 H 24 H 168/72 H 93 L 08/29/19 13:02 93 L 08/29/19 13:01 36.8 C 105 H 24 H 168/72 H 87 L Date Exam was Performed: 08/29/19 Time Exam was Performed: 17:12 *Q Meaningful Use (ADM) - VTE Risk Assess *Q Each Risk Factor Represents 1 Point: Age 41 - 59 years, Obesity ( BMI > 25 kg/m2 ), Abnormal Pulmonary Function (COPD) Total Score 1 Point Risk Factors: 3 Each Risk Factor Represents 2 Points: None Total Score 2 Point Risk Factors: 0 Each Risk Factor Represents 3 Points: None Total Score 3 Point Risk Factors: 0 Each Risk Factor Represents 5 Points: None Total Score 5 Point Risk Factors: 0 Venous Thromboembolism Risk Factor Score *Q: 3 - Problem List (1) Acute bronchitis SNOMED Code(s): 83406173 ICD Code: J20.9 - ACUTE BRONCHITIS, UNSPECIFIED Status: Acute Current Visit: No Qualifiers: Bronchitis organism: unspecified organism Qualified Code(s): J20.9 - Acute bronchitis, unspecified (2) COPD with exacerbation SNOMED Code(s): 221408647 ICD Code: J44.1 - CHRONIC OBSTRUCTIVE PULMONARY DISEASE W (ACUTE) EXACERBATION Status: Acute Priority: High Current Visit: No (3) Acute respiratory failure with hypoxia SNOMED Code(s): 17640230, 100173217 ICD Code: J96.01 - ACUTE RESPIRATORY FAILURE WITH HYPOXIA Status: Acute Current Visit: Yes (4) Type 2 diabetes mellitus SNOMED Code(s): 75976929 ICD Code: E11.9 - TYPE 2 DIABETES MELLITUS WITHOUT COMPLICATIONS Status: Chronic Current Visit: No Qualifiers: Diabetes mellitus fpc insulin use: without fpc use Diabetes mellitus complication status: without complication Qualified Code(s): E11.9 - Type 2 diabetes mellitus without complications (5) Tobacco dependence SNOMED Code(s): 78907034 ICD Code: F17.200 - NICOTINE DEPENDENCE, UNSPECIFIED, UNCOMPLICATED Status : Chronic Current Visit: No Problem List Initiated/Reviewed/Updated: Yes Orders Last 24hrs: Active Orders 24 hr Category Date Time Status Patient Status Manage Transfer [TRANSFER] Routine ADT 08/29/19 15:13 Ordered RT Aerosol Therapy [RC] ASDIRECTED Care 08/29/19 13:09 Active UA W/MICROSCOPIC [URIN] Stat Lab 08/29/19 14:06 Ordered Sodium Chloride 0.9% [Saline Flush] Med 08/29/19 14:25 Active 10 ml FLUSH ASDIRECTED PRN Saline Lock Insert [OM.PC] Routine Oth 08/29/19 14:25 Ordered Resuscitation Status Routine Resus Stat 08/29/19 15:14 Ordered Medication Orders Sodium Chloride (Saline Flush) 10 ml FLUSH ASDIRECTED PRN PRN Reason: Keep Vein Open Last Admin: 08/29/19 15:15 Dose: 10 ml Assessment/Plan Comment:: ASSESSMENT AND PLAN - Acute bronchitis-complicated by an exacerbation of her COPD as well as acute respiratory failure with hypoxia. I suspect this is a bacterial bronchitis with her elevated white count. She is requiring supplemental oxygen. Things have been getting worse despite using nebulizers at home. Significant dyspnea with any exertion. -Antibiotic coverage with doxycycline -Prednisone 40 mg daily -Scheduled and as needed nebulizers -Supplement oxygen as indicated, wean as able Type 2 diabetes mellitus-controlled with metformin. This will need to be monitored with her prednisone use. -Twice daily Accu-Cheks starting in the morning -Continue metformin -Consider sliding scale insulin Tobacco dependence-patient is interested in cessation and is very motivated to quit. She is not interested in nicotine replacement products at this time. Maintenance issues - - DVT prophylaxis - mechanical - GI prophylaxis - not indicated - Nutrition - diabetic - Jarvis catheter - not indicated CODE STATUS -full code Admission justification -this patient will be admitted for inpatient services and is medically appropriate meeting medical necessity for inpatient admission as outlined in my documentation. I reasonably expect the patient will require inpatient services that span a period time over 2 midnights. I reasonably expect this patient to be discharged or transferred within 96 hours [facility]. Disposition -I would anticipate discharge home after the hospital stay Primary care physician - Crys Nunez M.D. - Mortality Measure Prognosis:: Good
[2019-08-29] MEDS ORDERED: LORazepam 2 MG/ML SDV IVPUSH PRN (15:55)
[2019-08-29] MEDS ORDERED: Ondansetron 4 MG/2 ML SDV IV PRN (15:55)
[2019-08-29] MEDS ORDERED: Melatonin 3 MG Tab PO PRN (15:55)
[2019-08-29] MEDS ORDERED: Ibuprofen 600 MG Tab PO PRN (15:55)
[2019-08-29] MEDS ORDERED: Magnesium Hydroxide 400 MG/5 ML Susp 30 ML Cup PO PRN (15:55)
[2019-08-29] MEDS ORDERED: Ondansetron 4 MG Tab.DIS PO PRN (15:55)
[2019-08-29] MEDS: Acetaminophen 325 MG Tab PO PRN (16:56)
[2019-08-29] MEDS: Albuterol/Ipratropium 3.0-0.5 MG/3 ML Neb Soln NEB SCH ×2 (16:57→21:53)
[2019-08-29] MEDS: metFORMIN 500 MG Tab PO SCH (16:57)
[2019-08-29] MEDS: Doxycycline 100 MG Cap PO SCH (18:00)
[2019-08-29] MEDS: Albuterol 0.083% 2.5 MG/3 ML Neb Soln NEB PRN (19:44)
[2019-08-29] MEDS: Venlafaxine 75 MG Tab PO SCH (21:53)
[2019-08-29] MEDS: Gabapentin 300 MG Cap PO SCH (21:54)
[2019-08-29] MEDS: atorvaSTATin 10 MG Tab PO SCH (21:54)
[2019-08-30] MEDS: Albuterol 0.083% 2.5 MG/3 ML Neb Soln NEB PRN ×3 (02:52→23:20)
[2019-08-30] MEDS: Doxycycline 100 MG Cap PO SCH ×2 (06:14→17:17)
[2019-08-30] MEDS: Albuterol/Ipratropium 3.0-0.5 MG/3 ML Neb Soln NEB SCH ×4 (07:59→20:20)
[2019-08-30] MEDS: predniSONE 20 MG Tab PO SCH (08:23)
[2019-08-30] MEDS: metFORMIN 500 MG Tab PO SCH ×2 (08:23→17:17)
[2019-08-30] MEDS: Venlafaxine 75 MG Tab PO SCH ×2 (08:24→20:43)
[2019-08-30] MEDS: Aspirin 81 MG Tab.Chew PO SCH (08:24)
[2019-08-30] MEDS: Gabapentin 300 MG Cap PO SCH ×2 (08:24→20:43)
[2019-08-30] MEDS: Codeine/guaiFENesin 100mg-10 MG/5 ML Syrup 10 ML Cup PO PRN ×3 (08:29→19:16)
--- NOTE | 2019-08-30 12:07 | PCM.PN ---
- General Info Date of Service: 08/30/19 Subjective Update: There were no acute events overnight. She is still very short of breath, especially with activity. She has a harsh cough which is minimally productive. She feels weak and tired. Supplemental oxygen requirements are slightly higher today at 3 L. No complaints of chest pain. Appetite has not been great. No fevers. Functional Status: Reports: Pain Controlled, Tolerating Diet - Review of Systems General: Denies: Fever Pulmonary: Reports: Shortness of Breath, Cough - Patient Data Vitals - Most Recent: Last Vital Signs Temp 37.2 C 08/30/19 11:47 Pulse 106 H 08/30/19 11:47 Resp 20 08/30/19 11:47 BP 132/56 L 08/30/19 11:47 Pulse Ox 89 L 08/30/19 11:47 Weight - Most Recent: 77.111 kg I&O - Last 24 Hours: Intake & Output 08/29/19 08/30/19 08/30/19 22:59 06:59 14:59 Intake Total 880 120 Output Total 813 [id number] Balance Lab Results Last 24 Hours: Laboratory Results - last 24 hr 08/29/19 08/29/19 08/29/19 Range/Units 13:10 14:06 21:57 WBC 13.8 H (4.5-11.0) K/uL RBC 4.71 (3.30-5.50) M/uL Hgb 13.8 (12.0-15.0) g/dL Hct 44.7 (36.0-48.0) % MCV 95 (80-98) fL MCH 29 (27-31) pg MCHC 31 L (32-36) % Plt Count 269 (150-400) K/uL Sodium 143 (140-148) mmol/L Potassium 4.3 (3.6-5.2) mmol/L Chloride 104 (100-108) mmol/L Carbon Dioxide 31 (21-32) mmol/L Anion Gap 8.5 (5.0-14.0) mmol/L BUN 12 (7-18) mg/dL Creatinine 0.6 (0.6-1.0) mg/dL Est Cr Clr Drug Dosing 88.25 mL/min Estimated GFR (MDRD) > 60 (>60) Glucose 117 H (74-106) mg/dL Calcium 8.9 (8.5-10.1) mg/dL Urine Color Yellow (YELLOW) Urine Appearance Clear (CLEAR) Urine pH 6.5 (5.0-8.0) Ur Specific [place] >= 1.030 (1.008-1.030) Urine Protein Negative (NEGATIVE) mg/dL Urine Glucose (UA) 250 H (NEGATIVE) mg/dL Urine Ketones Trace H (NEGATIVE) mg/dL Urine Occult Blood Negative (NEGATIVE) Urine Nitrite Negative (NEGATIVE) Urine Bilirubin Negative (NEGATIVE) Urine Urobilinogen 0.2 (0.2-1.0) EU/dL Ur Leukocyte Esterase Negative (NEGATIVE) Urine RBC Not seen (0-5) Urine WBC 0-5 (0-5) Ur Epithelial Cells Rare Amorphous Sediment Not seen Urine Bacteria Rare Urine Mucus Not seen 08/30/19 08/30/19 Range/Units 05:43 05:43 WBC 12.7 H (4.5-11.0) K/uL RBC 4.65 (3.30-5.50) M/uL Hgb 13.8 (12.0-15.0) g/dL Hct 44.3 (36.0-48.0) % MCV 95 (80-98) fL MCH 30 (27-31) pg MCHC 31 L (32-36) % Plt Count 259 (150-400) K/uL Sodium 145 (140-148) mmol/L Potassium 4.5 (3.6-5.2) mmol/L Chloride 106 (100-108) mmol/L Carbon Dioxide 32 (21-32) mmol/L Anion Gap 7.5 (5.0-14.0) mmol/L BUN 19 H D (7-18) mg/dL Creatinine 0.6 (0.6-1.0) mg/dL Est Cr Clr Drug Dosing 88.25 mL/min Estimated GFR (MDRD) > 60 (>60) Glucose 126 H (74-106) mg/dL Calcium 8.8 (8.5-10.1) mg/dL Urine Color (YELLOW) Urine Appearance (CLEAR) Urine pH (5.0-8.0) Ur Specific [place] (1.008-1.030) Urine Protein (NEGATIVE) mg/dL Urine Glucose (UA) (NEGATIVE) mg/dL Urine Ketones (NEGATIVE) mg/dL Urine Occult Blood (NEGATIVE) Urine Nitrite (NEGATIVE) Urine Bilirubin (NEGATIVE) Urine Urobilinogen (0.2-1.0) EU/dL Ur Leukocyte Esterase (NEGATIVE) Urine RBC (0-5) Urine WBC (0-5) Ur Epithelial Cells Amorphous Sediment Urine Bacteria Urine Mucus Med Orders - Current: Current Medications Acetaminophen (Tylenol) 650 mg PO Q4H PRN PRN Reason: Pain (Mild 1-3)/fever Last Admin: 08/29/19 16:56 Dose: 650 mg Albuterol (Proventil Neb Soln) 2.5 mg NEB Q4H PRN PRN Reason: Shortness Of Breath/wheezing Last Admin: 08/30/19 02:52 Dose: 2.5 mg Albuterol/Ipratropium (Duoneb 3.0-0.5 Mg/3 Ml) 3 ml NEB QIDRT [facility] Last Admin: 08/30/19 11:59 Dose: 3 ml Aspirin (Aspirin) 81 mg PO DAILY [facility] Last Admin: 08/30/19 08:24 Dose: 81 mg Atorvastatin Calcium (Lipitor) 10 mg PO BEDTIME [facility] Last Admin: 08/29/19 21:54 Dose: 10 mg Benzonatate (Tessalon Perles) 100 mg PO TID PRN PRN Reason: Cough Doxycycline Hyclate (Vibramycin) 100 mg PO Q12H [facility] Last Admin: 08/30/19 06:14 Dose: 100 mg Gabapentin (Neurontin) 300 mg PO BID [facility] Last Admin: 08/30/19 08:24 Dose: 300 mg Guaifenesin/Codeine Phosphate (Robitussin Ac) 10 ml PO Q4H PRN PRN Reason: Cough Last Admin: 08/30/19 11:59 Dose: 10 ml Ibuprofen (Motrin) 600 mg PO Q6H PRN PRN Reason: Pain/Fever Last Admin: 08/29/19 16:57 Dose: 600 mg Lorazepam (Ativan) 0.5 mg IVPUSH Q4H PRN PRN Reason: Nausea/Vomiting Magnesium Hydroxide (Milk Of Magnesia) 30 ml PO Q12H PRN PRN Reason: Constipation Melatonin (Melatonin) 9 mg PO BEDTIME PRN PRN Reason: Sleep Metformin HCl (Glucophage) 1,000 mg PO BIDMEALS [facility] Last Admin: 08/30/19 08:23 Dose: 1,000 mg Ondansetron HCl (Zofran Odt) 4 mg PO Q6H PRN PRN Reason: Nausea able to take PO Ondansetron HCl (Zofran) 4 mg IV Q6H PRN PRN Reason: Nausea/Vomiting Prednisone (Prednisone) 40 mg PO WITHBREAKFAST [facility] Last Admin: 08/30/19 08:23 Dose: 40 mg Senna/Docusate Sodium (Senna Plus) 1 tab PO BID PRN PRN Reason: Constipation Sodium Chloride (Saline Flush) 10 ml FLUSH ASDIRECTED PRN PRN Reason: Keep Vein Open Last Admin: 08/29/19 15:15 Dose: 10 ml Venlafaxine HCl (Effexor) 150 mg PO BID [facility] Last Admin: 08/30/19 08:24 Dose: 150 mg Discontinued Medications Albuterol (Proventil Neb Soln) 2.5 mg NEB ONETIME ONE Stop: 08/29/19 13:10 Last Admin: 08/29/19 13:16 Dose: 2.5 mg Prednisone (Prednisone) 40 mg PO ONETIME ONE Stop: 08/29/19 13:10 Last Admin: 08/29/19 13:16 Dose: 40 mg - Exam Quality Assessment: Supplemental Oxygen General: Alert, Oriented, Cooperative, No Acute Distress Lungs: Normal Respiratory Effort, Wheezing (diffuse inspiratory and expiratory ) Cardiovascular: Regular Rate, Regular Rhythm GI/Abdominal Exam: Soft, No Distention Extremities: No Pedal Edema Psy/Mental Status: Alert, Normal Affect Sepsis Event Note - Evaluation Sepsis Screening Result: Sepsis Risk - Focused Exam Vital Signs: Vital Signs Temp Pulse Resp BP Pulse Ox 08/30/19 11:47 37.2 C 106 H 20 132/56 L 89 L 08/30/19 08:17 36.5 C 89 18 115/50 L 90 L 08/30/19 02:49 36.0 C L 96 20 114/54 L 95 Date Exam was Performed: 08/30/19 Time Exam was Performed: 13:35 - Problem List & Annotations (1) Acute bronchitis SNOMED Code(s): 41748178 Code(s): J20.9 - ACUTE BRONCHITIS, UNSPECIFIED Status: Resolved Current Visit: No Qualifiers: Bronchitis organism: unspecified organism Qualified Code(s): J20.9 - Acute bronchitis, unspecified (2) COPD with exacerbation SNOMED Code(s): 231941299 Code(s): J44.1 - CHRONIC OBSTRUCTIVE PULMONARY DISEASE W (ACUTE) EXACERBATION Status: Acute Priority: High Current Visit: No (3) Acute respiratory failure with hypoxia SNOMED Code(s): 36658203, 547019920 Code(s): J96.01 - ACUTE RESPIRATORY FAILURE WITH HYPOXIA Status: Acute Current Visit: Yes (4) Type 2 diabetes mellitus SNOMED Code(s): 10781817 Code(s): E11.9 - TYPE 2 DIABETES MELLITUS WITHOUT COMPLICATIONS Status: Chronic Current Visit: No Qualifiers: Diabetes mellitus detention insulin use: without detention use Diabetes mellitus complication status: without complication Qualified Code(s): E11.9 - Type 2 diabetes mellitus without complications (5) Tobacco dependence SNOMED Code(s): 33557316 Code(s): F17.200 - NICOTINE DEPENDENCE, UNSPECIFIED, UNCOMPLICATED Status: Chronic Current Visit: No - Problem List Review Problem List Initiated/Reviewed/Updated: Yes - My Orders Last 24 Hours: My Active Orders 08/29/19 15:14 Resuscitation Status Routine 08/29/19 15:55 Patient Status [ADT] Routine Intake and Output [RC] QSHIFT Notify Provider Vital Signs [RC] ASDIRECTED Oxygen Therapy [RC] PRN RT Aerosol Therapy [RC] ASDIRECTED Up With Assistance [RC] ASDIRECTED VTE/DVT Education [RC] Per Unit Routine Vital Signs [RC] Q4H Acetaminophen [Tylenol] 650 mg PO Q4H PRN Albuterol [Proventil Neb Soln] 2.5 mg NEB Q4H PRN Benzonatate [Tessalon Perles] 100 mg PO TID PRN Codeine/guaiFENesin [Robitussin AC] 10 ml PO Q4H PRN Docusate Sodium/Sennosides [Senna Plus] 1 tab PO BID PRN Ibuprofen [Motrin] 600 mg PO Q6H PRN LORazepam [Ativan] 0.5 mg IVPUSH Q4H PRN Magnesium Hydroxide [Milk of Magnesia] 30 ml PO Q12H PRN Melatonin 9 mg PO BEDTIME PRN Ondansetron [Zofran ODT] 4 mg PO Q6H PRN Ondansetron [Zofran] 4 mg IV Q6H PRN Sequential Compression Device [OM.PC] Routine 08/29/19 16:00 Albuterol/Ipratropium [DuoNeb 3.0-0.5 MG/3 ML] 3 ml NEB QIDRT 08/29/19 17:00 metFORMIN [Glucophage] 1,000 mg PO BIDMEALS 08/29/19 18:00 Doxycycline [Vibramycin] 100 mg PO Q12H 08/29/19 21:00 Gabapentin [Neurontin] 300 mg PO BID Venlafaxine [Effexor] 150 mg PO BID atorvaSTATin [Lipitor] 10 mg PO BEDTIME 08/29/19 Dinner Consistent Carbohydrate Diet [DIET] 08/30/19 08:00 predniSONE 40 mg PO WITHBREAKFAST 08/30/19 09:00 Aspirin 81 mg PO DAILY 08/30/19 17:00 GLUCOSE POC LAB TO COLLECT [POC] BIDAC 08/31/19 05:00 CBC W/O DIFF,HEMOGRAM [HEME] Timed (1) 08/31/19 08:00 GLUCOSE POC LAB TO COLLECT [POC] BIDAC 08/31/19 17:00 GLUCOSE POC LAB TO COLLECT [POC] BIDAC 09/01/19 08:00 GLUCOSE POC LAB TO COLLECT [POC] BIDAC 09/01/19 17:00 GLUCOSE POC LAB TO COLLECT [POC] BIDAC - Plan Plan:: ASSESSMENT AND PLAN - Acute bronchitis-complicated by an exacerbation of her COPD as well as acute respiratory failure with hypoxia. Stable but not dramatically improved since yesterday. Requiring more oxygen today than yesterday. Wheezing more so hopefully lungs are starting to open up. -Antibiotic coverage with doxycycline -Prednisone 40 mg daily -Scheduled and as needed nebulizers -Supplement oxygen as indicated, wean as able Type 2 diabetes mellitus-controlled with metformin. This will need to be monitored with her prednisone use. -Twice daily Accu-Cheks starting in the morning -Continue metformin -Consider sliding scale insulin Tobacco dependence-patient is interested in cessation and is very motivated to quit. She is not interested in nicotine replacement products at this time. Maintenance issues - - DVT prophylaxis - mechanical - GI prophylaxis - not indicated - Nutrition - diabetic Disposition -I would anticipate discharge home after the hospital stay Jovan Nunez M.D.
[2019-08-30] MEDS: atorvaSTATin 10 MG Tab PO SCH (20:43)
[2019-08-31] MEDS: Codeine/guaiFENesin 100mg-10 MG/5 ML Syrup 10 ML Cup PO PRN ×2 (02:30→09:49)
[2019-08-31] MEDS: Albuterol 0.083% 2.5 MG/3 ML Neb Soln NEB PRN ×2 (03:06→18:16)
[2019-08-31] MEDS: Doxycycline 100 MG Cap PO SCH ×2 (06:45→17:17)
[2019-08-31] MEDS: Acetaminophen 325 MG Tab PO PRN ×2 (07:19→14:10)
[2019-08-31] MEDS: Benzonatate 100 MG Cap PO PRN (07:20)
[2019-08-31] MEDS: Albuterol/Ipratropium 3.0-0.5 MG/3 ML Neb Soln NEB SCH ×4 (07:24→21:33)
[2019-08-31] MEDS: predniSONE 20 MG Tab PO SCH (07:53)
[2019-08-31] MEDS: metFORMIN 500 MG Tab PO SCH ×2 (07:53→17:13)
[2019-08-31] MEDS: Gabapentin 300 MG Cap PO SCH ×2 (09:47→21:36)
[2019-08-31] MEDS: Venlafaxine 75 MG Tab PO SCH ×2 (09:47→21:36)
[2019-08-31] MEDS: Aspirin 81 MG Tab.Chew PO SCH (09:47)
--- NOTE | 2019-08-31 10:59 | PCM.PN ---
- General Info Date of Service: 08/31/19 Subjective Update: No acute events overnight. No fevers. Still requiring supplemental oxygen though this is down to 2.5 L from 3 yesterday. Still quite short of breath with any activity. Still coughing but this is a little better. Did not sleep well because of the cough. White blood cell count a little better today. Appetite has been acceptable. Functional Status: Reports: Pain Controlled, Tolerating Diet - Review of Systems General: Reports: Weakness Pulmonary: Reports: Shortness of Breath, Cough - Patient Data Vitals - Most Recent: Last Vital Signs Temp 36.6 C 08/31/19 07:56 Pulse 98 08/31/19 10:49 Resp 20 08/31/19 07:56 BP 129/60 08/31/19 07:56 Pulse Ox 95 08/31/19 07:56 Weight - Most Recent: 77.111 kg I&O - Last 24 Hours: Intake & Output 08/30/19 08/31/19 08/31/19 22:59 06:59 14:59 Intake Total 600 400 Output Total 900 1000 600 Balance -300 -600 -600 Lab Results Last 24 Hours: Laboratory Results - last 24 hr 08/31/19 Range/Units 06:08 WBC 11.5 H (4.5-11.0) K/uL RBC 4.53 (3.30-5.50) M/uL Hgb 13.4 (12.0-15.0) g/dL Hct 43.5 (36.0-48.0) % MCV 96 (80-98) fL MCH 30 (27-31) pg MCHC 31 L (32-36) % Plt Count 250 (150-400) K/uL Med Orders - Current: Current Medications Acetaminophen (Tylenol) 650 mg PO Q4H PRN PRN Reason: Pain (Mild 1-3)/fever Last Admin: 08/31/19 07:19 Dose: 650 mg Albuterol (Proventil Neb Soln) 2.5 mg NEB Q4H PRN PRN Reason: Shortness Of Breath/wheezing Last Admin: 08/31/19 03:06 Dose: 2.5 mg Albuterol/Ipratropium (Duoneb 3.0-0.5 Mg/3 Ml) 3 ml NEB QIDRT [facility] Last Admin: 08/31/19 10:49 Dose: 3 ml Aspirin (Aspirin) 81 mg PO DAILY [facility] Last Admin: 08/31/19 09:47 Dose: 81 mg Atorvastatin Calcium (Lipitor) 10 mg PO BEDTIME [facility] Last Admin: 08/30/19 20:43 Dose: 10 mg Benzonatate (Tessalon Perles) 100 mg PO TID PRN PRN Reason: Cough Last Admin: 08/31/19 07:20 Dose: 100 mg Doxycycline Hyclate (Vibramycin) 100 mg PO Q12H [facility] Last Admin: 08/31/19 06:45 Dose: 100 mg Gabapentin (Neurontin) 300 mg PO BID [facility] Last Admin: 08/31/19 09:47 Dose: 300 mg Guaifenesin/Codeine Phosphate (Robitussin Ac) 15 ml PO Q4H PRN PRN Reason: Cough Ibuprofen (Motrin) 600 mg PO Q6H PRN PRN Reason: Pain/Fever Last Admin: 08/29/19 16:57 Dose: 600 mg Lorazepam (Ativan) 0.5 mg IVPUSH Q4H PRN PRN Reason: Nausea/Vomiting Last Admin: 08/31/19 07:20 Dose: 0.5 mg Magnesium Hydroxide (Milk Of Magnesia) 30 ml PO Q12H PRN PRN Reason: Constipation Melatonin (Melatonin) 9 mg PO BEDTIME PRN PRN Reason: Sleep Metformin HCl (Glucophage) 1,000 mg PO BIDMEALS [facility] Last Admin: 08/31/19 07:53 Dose: 1,000 mg Methylprednisolone Sodium Succinate (Solu-Medrol) 62.5 mg IVPUSH ONETIME ONE Stop: 08/31/19 14:01 Ondansetron HCl (Zofran Odt) 4 mg PO Q6H PRN PRN Reason: Nausea able to take PO Ondansetron HCl (Zofran) 4 mg IV Q6H PRN PRN Reason: Nausea/Vomiting Prednisone (Prednisone) 40 mg PO WITHBREAKFAST [facility] Last Admin: 08/31/19 07:53 Dose: 40 mg Senna/Docusate Sodium (Senna Plus) 1 tab PO BID PRN PRN Reason: Constipation Sodium Chloride (Saline Flush) 10 ml FLUSH ASDIRECTED PRN PRN Reason: Keep Vein Open Last Admin: 08/29/19 15:15 Dose: 10 ml Venlafaxine HCl (Effexor) 150 mg PO BID [facility] Last Admin: 08/31/19 09:47 Dose: 150 mg Discontinued Medications Albuterol (Proventil Neb Soln) 2.5 mg NEB ONETIME ONE Stop: 08/29/19 13:10 Last Admin: 08/29/19 13:16 Dose: 2.5 mg Guaifenesin/Codeine Phosphate (Robitussin Ac) 10 ml PO Q4H PRN PRN Reason: Cough Last Admin: 08/31/19 09:49 Dose: 10 ml Prednisone (Prednisone) 40 mg PO ONETIME ONE Stop: 08/29/19 13:10 Last Admin: 08/29/19 13:16 Dose: 40 mg - Exam Quality Assessment: Supplemental Oxygen General: Alert, Oriented, Cooperative, No Acute Distress Lungs: Normal Respiratory Effort, Wheezing (moderate diffuse exp wheezing ) Cardiovascular: Regular Rate, Regular Rhythm GI/Abdominal Exam: Soft, No Distention Extremities: No Pedal Edema Skin: Warm, Dry Psy/Mental Status: Alert, Normal Affect Sepsis Event Note - Evaluation Sepsis Screening Result: No Definite Risk - Focused Exam Vital Signs: Vital Signs Temp Pulse Resp BP Pulse Ox Pulse Ox 08/31/19 10:49 98 08/31/19 07:56 36.6 C 97 20 129/60 95 08/31/19 03:06 36.3 C 97 20 134/65 95 08/30/19 23:48 98 08/30/19 23:44 37.2 C 95 20 108/43 L 98 Date Exam was Performed: 08/31/19 Time Exam was Performed: 12:52 - Problem List & Annotations (1) Acute bronchitis SNOMED Code(s): 65991327 Code(s): J20.9 - ACUTE BRONCHITIS, UNSPECIFIED Status: Resolved Current Visit: No Qualifiers: Bronchitis organism: unspecified organism Qualified Code(s): J20.9 - Acute bronchitis, unspecified (2) COPD with exacerbation SNOMED Code(s): 837769664 Code(s): J44.1 - CHRONIC OBSTRUCTIVE PULMONARY DISEASE W (ACUTE) EXACERBATION Status: Acute Priority: High Current Visit: No (3) Acute respiratory failure with hypoxia SNOMED Code(s): 81435970, 333725036 Code(s): J96.01 - ACUTE RESPIRATORY FAILURE WITH HYPOXIA Status: Acute Current Visit: Yes (4) Type 2 diabetes mellitus SNOMED Code(s): 90851366 Code(s): E11.9 - TYPE 2 DIABETES MELLITUS WITHOUT COMPLICATIONS Status: Chronic Current Visit: No Qualifiers: Diabetes mellitus jewel hole rough opener insulin use: without jewel hole rough opener use Diabetes mellitus complication status: without complication Qualified Code(s): E11.9 - Type 2 diabetes mellitus without complications (5) Tobacco dependence SNOMED Code(s): 88078875 Code(s): F17.200 - NICOTINE DEPENDENCE, UNSPECIFIED, UNCOMPLICATED Status: Chronic Current Visit: No - Problem List Review Problem List Initiated/Reviewed/Updated: Yes - My Orders Last 24 Hours: My Active Orders 08/31/19 10:58 Codeine/guaiFENesin [Robitussin AC] 15 ml PO Q4H PRN 08/31/19 14:00 methylPREDNISolone Sod Succ [Solu-MEDROL] 62.5 mg IVPUSH ONETIME ONE 08/31/19 17:00 GLUCOSE POC LAB TO COLLECT [POC] BIDAC 09/01/19 08:00 GLUCOSE POC LAB TO COLLECT [POC] BIDAC 09/01/19 17:00 GLUCOSE POC LAB TO COLLECT [POC] BIDAC - Plan Plan:: ASSESSMENT AND PLAN - Acute bronchitis-complicated by an exacerbation of her COPD as well as acute respiratory failure with hypoxia. Seems to be slowly improving but still requiring supplemental oxygen. Still short of breath with any activity and cough is bothersome. -Antibiotic coverage with doxycycline -Prednisone 40 mg daily plus one-time dose of Solu-Medrol this afternoon -Scheduled and as needed nebulizers -Supplement oxygen as indicated, wean as able Type 2 diabetes mellitus-controlled with metformin. Sugars moderately elevated with prednisone. -Twice daily Accu-Cheks starting in the morning -Continue metformin -Start sliding scale insulin Tobacco dependence-patient is interested in cessation and is very motivated to quit. She is not interested in nicotine replacement products at this time. Maintenance issues - - DVT prophylaxis - mechanical - GI prophylaxis - not indicated - Nutrition - diabetic Disposition -I would anticipate discharge home after the hospital stay Jovan Nunez M.D.
[2019-08-31] MEDS ORDERED: methylPREDNISolone Sodium Succinate 125 MG/2 ML SDV IVPUSH ONE (14:00)
[2019-08-31] MEDS: Insulin Lispro 100 Unit/ML 3 ML KwikPen SUBCUT SCH ×2 (17:16→21:37)
[2019-08-31] MEDS: atorvaSTATin 10 MG Tab PO SCH (21:36)
[2019-09-01] MEDS: Albuterol 0.083% 2.5 MG/3 ML Neb Soln NEB PRN ×2 (01:33→09:40)
[2019-09-01] MEDS: Codeine/guaiFENesin 100mg-10 MG/5 ML Syrup 10 ML Cup PO PRN ×3 (01:48→20:10)
[2019-09-01] MEDS: Doxycycline 100 MG Cap PO SCH ×2 (05:55→17:30)
[2019-09-01] MEDS: Albuterol/Ipratropium 3.0-0.5 MG/3 ML Neb Soln NEB SCH ×4 (06:00→20:04)
[2019-09-01] MEDS: Benzonatate 100 MG Cap PO PRN ×2 (08:02→20:10)
[2019-09-01] MEDS: predniSONE 20 MG Tab PO SCH (08:04)
[2019-09-01] MEDS: Insulin Lispro 100 Unit/ML 3 ML KwikPen SUBCUT SCH ×4 (08:05→21:15)
[2019-09-01] MEDS: metFORMIN 500 MG Tab PO SCH ×2 (08:05→17:30)
[2019-09-01] MEDS: Venlafaxine 75 MG Tab PO SCH ×2 (08:08→20:06)
[2019-09-01] MEDS: Aspirin 81 MG Tab.Chew PO SCH (09:33)
[2019-09-01] MEDS: Gabapentin 300 MG Cap PO SCH ×2 (09:33→20:06)
--- NOTE | 2019-09-01 10:56 | PCM.PN ---
- General Info Date of Service: 09/01/19 Subjective Update: No acute events overnight. No fevers. Shortness of breath is a little better. Still has a moderate cough. Feels better today than yesterday. Still requiring supplemental oxygen but down to 2 L. Functional Status: Reports: Pain Controlled, Tolerating Diet - Review of Systems General: Denies: Fever Pulmonary: Reports: Shortness of Breath, Cough - Patient Data Vitals - Most Recent: Last Vital Signs Temp 36.5 C 09/01/19 07:00 Pulse 102 H 09/01/19 09:41 Resp 18 09/01/19 07:00 BP 130/63 09/01/19 07:00 Pulse Ox 98 09/01/19 09:41 Weight - Most Recent: 77.111 kg I&O - Last 24 Hours: Intake & Output 08/31/19 09/01/19 09/01/19 22:59 06:59 14:59 Intake Total 1000 240 240 Output Total 1100 1025 Balance -100 -785 240 Med Orders - Current: Current Medications Acetaminophen (Tylenol) 650 mg PO Q4H PRN PRN Reason: Pain (Mild 1-3)/fever Last Admin: 08/31/19 14:10 Dose: 650 mg Albuterol (Proventil Neb Soln) 2.5 mg NEB Q4H PRN PRN Reason: Shortness Of Breath/wheezing Last Admin: 09/01/19 09:40 Dose: 2.5 mg Albuterol/Ipratropium (Duoneb 3.0-0.5 Mg/3 Ml) 3 ml NEB QIDRT [facility] Last Admin: 09/01/19 10:54 Dose: 3 ml Aspirin (Aspirin) 81 mg PO DAILY [facility] Last Admin: 09/01/19 09:33 Dose: 81 mg Atorvastatin Calcium (Lipitor) 10 mg PO BEDTIME [facility] Last Admin: 08/31/19 21:36 Dose: 10 mg Benzonatate (Tessalon Perles) 100 mg PO TID PRN PRN Reason: Cough Last Admin: 09/01/19 08:02 Dose: 100 mg Doxycycline Hyclate (Vibramycin) 100 mg PO Q12H [facility] Last Admin: 09/01/19 05:55 Dose: 100 mg Gabapentin (Neurontin) 300 mg PO BID [facility] Last Admin: 09/01/19 09:33 Dose: 300 mg Guaifenesin/Codeine Phosphate (Robitussin Ac) 15 ml PO Q4H PRN PRN Reason: Cough Last Admin: 09/01/19 08:02 Dose: 15 ml Ibuprofen (Motrin) 600 mg PO Q6H PRN PRN Reason: Pain/Fever Last Admin: 08/29/19 16:57 Dose: 600 mg Insulin Human Lispro (Humalog) 0 unit SUBCUT QIDACANDBED [facility]; Protocol Last Admin: 09/01/19 08:05 Dose: 2 units Lorazepam (Ativan) 0.5 mg IVPUSH Q4H PRN PRN Reason: Nausea/Vomiting Last Admin: 08/31/19 07:20 Dose: 0.5 mg Magnesium Hydroxide (Milk Of Magnesia) 30 ml PO Q12H PRN PRN Reason: Constipation Melatonin (Melatonin) 9 mg PO BEDTIME PRN PRN Reason: Sleep [facility] Admin: 09/01/19 08:05 Dose: 1,000 mg Ondansetron HCl (Zofran Odt) 4 mg PO Q6H PRN PRN Reason: Nausea able to take PO Ondansetron HCl (Zofran) 4 mg IV Q6H PRN PRN Reason: Nausea/Vomiting Prednisone (Prednisone) 40 mg PO WITHBREAKFAST [facility] Last Admin: 09/01/19 08:04 Dose: 40 mg Senna/Docusate Sodium (Senna Plus) 1 tab PO BID PRN PRN Reason: Constipation Sodium Chloride (Saline Flush) 10 ml FLUSH ASDIRECTED PRN PRN Reason: Keep Vein Open Last Admin: 08/29/19 15:15 Dose: 10 ml Venlafaxine HCl (Effexor) 150 mg PO BID [facility] Last Admin: 09/01/19 08:08 Dose: 150 mg Discontinued Medications Albuterol (Proventil Neb Soln) 2.5 mg NEB ONETIME ONE Stop: 08/29/19 13:10 Last Admin: 08/29/19 13:16 Dose: 2.5 mg Guaifenesin/Codeine Phosphate (Robitussin Ac) 10 ml PO Q4H PRN PRN Reason: Cough Last Admin: 08/31/19 09:49 Dose: 10 ml Methylprednisolone Sodium Succinate (Solu-Medrol) 62.5 mg IVPUSH ONETIME ONE Stop: 02/16/20 14:01 Last Admin: 08/31/19 14:04 Dose: 62.5 mg Prednisone (Prednisone) 40 mg PO ONETIME ONE Stop: 08/29/19 13:10 Last Admin: 08/29/19 13:16 Dose: 40 mg - Exam Quality Assessment: Supplemental Oxygen General: Alert, Oriented, Cooperative, No Acute Distress Lungs: Normal Respiratory Effort, Wheezing (Moderate diffuse expiratory wheezing ) Cardiovascular: Regular Rate, Regular Rhythm GI/Abdominal Exam: Soft, No Distention Extremities: No Pedal Edema Psy/Mental Status: Alert, Normal Affect Sepsis Event Note - Evaluation Sepsis Screening Result: No Definite Risk - Focused Exam Vital Signs: Vital Signs Temp Pulse Resp BP BP Pulse Ox Pulse Ox 09/01/19 09:41 102 H 98 09/01/19 07:00 36.5 C 96 18 130/63 93 L 09/01/19 02:57 100 09/01/19 02:56 36.8 C 91 18 148/70 H 100 08/31/19 23:00 36.6 C 98 16 142/68 H 94 L Date Exam was Performed: 09/01/19 Time Exam was Performed: 10:54 - Problem List & Annotations (1) Acute bronchitis SNOMED Code(s): 21126347 Code(s): J20.9 - ACUTE BRONCHITIS, UNSPECIFIED Status: Resolved Current Visit: No Qualifiers: Bronchitis organism: unspecified organism Qualified Code(s): J20.9 - Acute bronchitis, unspecified (2) COPD with exacerbation SNOMED Code(s): 586895332 Code(s): J44.1 - CHRONIC OBSTRUCTIVE PULMONARY DISEASE W (ACUTE) EXACERBATION Status: Acute Priority: High Current Visit: No (3) Acute respiratory failure with hypoxia SNOMED Code(s): 08107106, 276324534 Code(s): J96.01 - ACUTE RESPIRATORY FAILURE WITH HYPOXIA Status: Acute Current Visit: Yes (4) Type 2 diabetes mellitus SNOMED Code(s): 45544555 Code(s): E11.9 - TYPE 2 DIABETES MELLITUS WITHOUT COMPLICATIONS Status: Chronic Current Visit: No Qualifiers: Diabetes mellitus shelter insulin use: without intermediate manager use Diabetes mellitus complication status: without complication Qualified Code(s): E11.9 - Type 2 diabetes mellitus without complications (5) Tobacco dependence SNOMED Code(s): 35227609 Code(s): F17.200 - NICOTINE DEPENDENCE, UNSPECIFIED, UNCOMPLICATED Status: Chronic Current Visit: No - Problem List Review Problem List Initiated/Reviewed/Updated: Yes - My Orders Last 24 Hours: My Active Orders 08/31/19 10:58 Codeine/guaiFENesin [Robitussin AC] 15 ml PO Q4H PRN 08/31/19 12:54 Communication Order [RC] PRN Communication Order [RC] PRN 08/31/19 17:00 Insulin Lispro [HumaLOG] See Protocol SUBCUT QIDACANDBED 09/01/19 11:30 GLUCOSE POC LAB TO COLLECT [POC] QIDACANDBED 09/01/19 16:30 GLUCOSE POC LAB TO COLLECT [POC] QIDACANDBED 09/01/19 21:00 GLUCOSE POC LAB TO COLLECT [POC] QIDACANDBED 09/02/19 07:30 GLUCOSE POC LAB TO COLLECT [POC] QIDACANDBED 09/02/19 11:30 GLUCOSE POC LAB TO COLLECT [POC] QIDACANDBED 09/02/19 16:30 GLUCOSE POC LAB TO COLLECT [POC] QIDACANDBED 09/02/19 21:00 GLUCOSE POC LAB TO COLLECT [POC] QIDACANDBED 09/03/19 07:30 GLUCOSE POC LAB TO COLLECT [POC] QIDACANDBED - Plan Plan:: ASSESSMENT AND PLAN - Acute bronchitis-complicated by an exacerbation of her COPD as well as acute respiratory failure with hypoxia. Slowly improving but still on supplemental oxygen. Wheezing is better today. -Antibiotic coverage with doxycycline (day 3) -Prednisone 40 mg daily -Scheduled and as needed nebulizers -Supplement oxygen as indicated, wean as able Type 2 diabetes mellitus-controlled with metformin. Sugars fairly well controlled. -Twice daily Accu-Cheks starting in the morning -Continue metformin -Sliding scale insulin Tobacco dependence-patient is interested in cessation and is very motivated to quit. She is not interested in nicotine replacement products at this time. Maintenance issues - - DVT prophylaxis - mechanical - GI prophylaxis - not indicated - Nutrition - diabetic Disposition -I would anticipate discharge home after the hospital stay Jovan Nunez M.D.
[2019-09-01] MEDS: atorvaSTATin 10 MG Tab PO SCH (20:06)
[2019-09-02] MEDS: Doxycycline 100 MG Cap PO SCH (05:23)
[2019-09-02] MEDS: Albuterol 0.083% 2.5 MG/3 ML Neb Soln NEB PRN (05:23)
[2019-09-02] MEDS: Benzonatate 100 MG Cap PO PRN (05:28)
[2019-09-02] MEDS: Codeine/guaiFENesin 100mg-10 MG/5 ML Syrup 10 ML Cup PO PRN (05:28)
[2019-09-02] MEDS: Albuterol/Ipratropium 3.0-0.5 MG/3 ML Neb Soln NEB SCH ×3 (07:31→14:45)
[2019-09-02] MEDS: Insulin Lispro 100 Unit/ML 3 ML KwikPen SUBCUT SCH ×2 (08:10→11:35)
[2019-09-02] MEDS: Venlafaxine 75 MG Tab PO SCH (08:10)
[2019-09-02] MEDS: predniSONE 20 MG Tab PO SCH (08:10)
[2019-09-02] MEDS: Gabapentin 300 MG Cap PO SCH (08:10)
[2019-09-02] MEDS: metFORMIN 500 MG Tab PO SCH (08:10)
[2019-09-02] MEDS: Aspirin 81 MG Tab.Chew PO SCH (08:11)
[2019-09-02] MEDS ORDERED: Lactobacillus Rhamnosus GG (Probiotic) Cap PO SCH (09:45)
[2019-09-02 11:05] VITALS: BP 128/65; PULSE 99
--- NOTE | 2019-09-02 14:07 | PCM.DCSUM1 ---
Discharge Summary - Hospital Course Brief History: Ms. Zhang is a 58-year-old woman who was admitted through the emergency department with weakness, shortness of breath, and cough, secondary to COPD exacerbation and underlying bronchitis. - Discharge Data Discharge Date: 09/02/19 Discharge Disposition: Home, Self-Care 01 Condition: Fair - Referral to Home Health Primary Care Physician: PCP None - Discharge Diagnosis/Problem(s) (1) Bronchitis SNOMED Code(s): 88309931 ICD Code: J40 - BRONCHITIS, NOT SPECIFIED ACUTE OR CHRONIC Status: Acute Current Visit: Yes (2) COPD exacerbation SNOMED Code(s): 404448337 ICD Code: J44.1 - CHRONIC OBSTRUCTIVE PULMONARY DISEASE W (ACUTE) EXACERBATION Status: Acute Current Visit: Yes (3) Acute respiratory failure with hypoxia SNOMED Code(s): 84709810, 543371217 ICD Code: J96.01 - ACUTE RESPIRATORY FAILURE WITH HYPOXIA Status: Acute Current Visit: Yes (4) Type 2 diabetes mellitus SNOMED Code(s): 14553491 ICD Code: E11.9 - TYPE 2 DIABETES MELLITUS WITHOUT COMPLICATIONS Status: Chronic Current Visit: No Qualifiers: Diabetes mellitus assisted insulin use: 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 Zhang presented to the emergency room with 2 days of progressive shortness of breath as well as cough. Cough has been loose but not productive. Shortness of breath has progressed steadily over the past 2+ days to the point that she is winded walking even 10 feet. She has been using her nebulizers at home and they are not helping much today. They did provide some relief yesterday. She is not aware of any fevers or chills. She has noted audible wheezing today. She does report some mild achy pain in the right mid upper back that is worse with taking breaths. This pain has slowly been getting worse. Energy is decreased but she has not noticed a change in her appetite. No obvious sick contacts but she was at a several days ago. Work-up in the emergency room was concerning for acute bronchitis and an exacerbation of her COPD. She has hypoxic and requiring supplemental oxygen. She has received prednisone in the emergency room. She will be admitted for management of a COPD exacerbation secondary to bronchitis with hypoxia. She was given IV fluids for hydration as well as started on IV antibiotic therapy and steroids. She was given supplemental oxygen during her hospital stay and at the time of discharge was still requiring supplemental oxygen to maintain adequate oxygenation. She will be discharged home with supplemental oxygen and it is anticipated that she will require this over the next several weeks. Transition to oral prednisone and oral antibiotic therapy. At the time of discharge we will continue doxycycline twice daily for another 3 days as well as prednisone 40 mg daily for another 3 days. She had improved significantly during hospitalization but was not yet back to baseline. Activity will be as tolerated and she will resume her usual diabetic diet. Glucose levels were monitored frequently during hospitalization and she received supplemental insulin as needed. Follow-up appointment will be scheduled with her primary care provider within 1 week. - Patient Instructions Diet: Diabetic Diet Activity: As Tolerated Other/Special Instructions: Discharged home with oxygen 2 L/min via nasal cannula. Please schedule follow-up appointment with primary care provider within 1 week. - Discharge Plan *PRESCRIPTION DRUG MONITORING PROGRAM REVIEWED*: Not Applicable *COPY OF PRESCRIPTION DRUG MONITORING REPORT IN PATIENT LEYLA: Not Applicable Prescriptions/Med Rec: Doxycycline [Vibramycin] 100 mg PO Q12H #6 cap Lactobacillus Rhamnosus GG [Culturelle] 1 cap PO BID #60 cap predniSONE 40 mg PO WITHBREAKFAST #6 tablet Home Medications: Home Meds Venlafaxine HCl 150 mg PO BID 10/04/13 [History] Albuterol/Ipratropium [Combivent Respimat] 1 inh INH Q6HR PRN 03/18/18 [History] Albuterol/Ipratropium [DuoNeb 3.0-0.5 MG/3 ML] 1 inh INH QID PRN 03/18/18 [ History] Gabapentin [Neurontin] 300 mg PO BID 03/18/18 [History] Aspirin 81 mg PO DAILY 10/20/18 [History] metFORMIN HCl [Metformin HCl] 2 tab PO BID 10/20/18 [History] atorvaSTATin [Lipitor] 10 mg PO BEDTIME 07/09/19 [History] Doxycycline [Vibramycin] 100 mg PO Q12H #6 cap 09/02/19 [Rx] Lactobacillus Rhamnosus GG [Culturelle] 1 cap PO BID #60 cap 09/02/19 [Rx] predniSONE 40 mg PO WITHBREAKFAST #6 tablet 09/02/19 [Rx] Oxygen Therapy Mode: Nasal Cannula Oxygen Flow Rate (L/min): 2 Maintain SpO2% greater than: 90 Patient Handouts: Chronic Obstructive Pulmonary Disease, [id number] Referrals: Crys Herndon PA-C [Ordering Only Provider] - 09/09/19 12:00 pm (Please arrive 15 minutes early to register for your appointment.) - Discharge Summary/Plan Comment DC Time >30 min.: No - Patient Data Vitals - Most Recent: Last Vital Signs Temp 98.5 F 09/02/19 11:03 Pulse 99 09/02/19 11:03 Resp 16 09/02/19 11:03 BP 128/65 09/02/19 11:03 Pulse Ox 92 L 09/02/19 11:03 Weight - Most Recent: 170 lb 0.01 oz I&O - Last 24 hours: Intake & Output 09/01/19 09/02/19 09/02/19 22:59 06:59 14:59 Intake Total 600 600 Output Total 1100 Balance 600 -500 Med Orders - Current: Current Medications Acetaminophen (Tylenol) 650 mg PO Q4H PRN PRN Reason: Pain (Mild 1-3)/fever Last Admin: 08/31/19 14:10 Dose: 650 mg Albuterol (Proventil Neb Soln) 2.5 mg NEB Q4H PRN PRN Reason: Shortness Of Breath/wheezing Last Admin: 09/02/19 05:23 Dose: 2.5 mg Albuterol/Ipratropium (Duoneb 3.0-0.5 Mg/3 Ml) 3 ml NEB QIDRT [facility] Last Admin: 09/02/19 10:47 Dose: 3 ml Aspirin (Aspirin) 81 mg PO DAILY [facility] Last Admin: 09/02/19 08:11 Dose: 81 mg Atorvastatin Calcium (Lipitor) 10 mg PO BEDTIME [facility] Last Admin: 09/01/19 20:06 Dose: 10 mg Benzonatate (Tessalon Perles) 100 mg PO TID PRN PRN Reason: Cough Last Admin: 09/02/19 05:28 Dose: 100 mg Doxycycline Hyclate (Vibramycin) 100 mg PO Q12H [facility] Last Admin: 09/02/19 05:23 Dose: 100 mg Gabapentin (Neurontin) 300 mg PO BID [facility] Last Admin: 09/02/19 08:10 Dose: 300 mg Guaifenesin/Codeine Phosphate (Robitussin Ac) 15 ml PO Q4H PRN PRN Reason: Cough Last Admin: 09/02/19 05:28 Dose: 15 ml Ibuprofen (Motrin) 600 mg PO Q6H PRN PRN Reason: Pain/Fever Last Admin: 08/29/19 16:57 Dose: 600 mg Insulin Human Lispro (Humalog) 0 unit SUBCUT QIDACANDBED [facility]; Protocol Last Admin: 09/02/19 11:35 Dose: Not Given Lactobacillus Rhamnosus (Culturelle) 1 cap PO BID [facility] Last Admin: 09/02/19 10:14 Dose: 1 cap Lorazepam (Ativan) 0.5 mg IVPUSH Q4H PRN PRN Reason: Nausea/Vomiting Last Admin: 08/31/19 07:20 Dose: 0.5 mg Magnesium Hydroxide (Milk Of Magnesia) 30 ml PO Q12H PRN PRN Reason: Constipation Melatonin (Melatonin) 9 mg PO BEDTIME PRN PRN Reason: Sleep [facility]) [facility] Last Admin: 09/02/19 08:10 Dose: 1,000 mg Ondansetron HCl (Zofran Odt) 4 mg PO Q6H PRN PRN Reason: Nausea able to take PO Ondansetron HCl (Zofran) 4 mg IV Q6H PRN PRN Reason: Nausea/Vomiting Prednisone (Prednisone) 40 mg PO WITHBREAKFAST [facility] Last Admin: 09/02/19 08:10 Dose: 40 mg Senna/Docusate Sodium (Senna Plus) 1 tab PO BID PRN PRN Reason: Constipation Sodium Chloride (Saline Flush) 10 ml FLUSH ASDIRECTED PRN PRN Reason: Keep Vein Open Last Admin: 08/29/19 15:15 Dose: 10 ml Venlafaxine HCl (Effexor) 150 mg PO BID [facility] Last Admin: 09/02/19 08:10 Dose: 150 mg Discontinued Medications Albuterol (Proventil Neb Soln) 2.5 mg NEB ONETIME ONE Stop: 08/29/19 13:10 Last Admin: 08/29/19 13:16 Dose: 2.5 mg Guaifenesin/Codeine Phosphate (Robitussin Ac) 10 ml PO Q4H PRN PRN Reason: Cough Last Admin: 08/31/19 09:49 Dose: 10 ml Methylprednisolone Sodium Succinate (Solu-Medrol) 62.5 mg IVPUSH ONETIME ONE Stop: 08/31/19 14:01 Last Admin: 08/31/19 14:04 Dose: 62.5 mg Prednisone (Prednisone) 40 mg PO ONETIME ONE Stop: 08/29/19 13:10 Last Admin: 08/29/19 13:16 Dose: 40 mg - Exam General: Reports: Alert, Oriented, Cooperative, Mild Distress Lungs: Reports: Decreased Breath Sounds, Wheezing. Denies: Rales, Rhonchi, Rub Cardiovascular: Reports: Regular Rate, Regular Rhythm, No Murmurs GI/Abdominal Exam: Soft, Non-Tender, No Organomegaly, No Distention Extremities: Non-Tender, No Pedal Edema
== END 2019-09-02 15:16 | disposition home or self-care (01) | DRG 190 ==
LOC: JP.ED 12:20 → JP.MS 15:13
PROVIDERS: ADMIT Internal Medicine; ATTEND Internal Medicine
DX: J44.0 Chronic obstructive pulmonary disease with (acute) lower respiratory infection (principal); J96.01 Acute respiratory failure with hypoxia; J20.9 Acute bronchitis, unspecified; J44.1 Chronic obstructive pulmonary disease with (acute) exacerbation; H54.7 Unspecified visual loss; E78.00 Pure hypercholesterolemia, unspecified; F41.9 Anxiety disorder, unspecified; F32.9 Major depressive disorder, single episode, unspecified; E11.9 Type 2 diabetes mellitus without complications; F17.210 Nicotine dependence, cigarettes, uncomplicated; Z99.81 Dependence on supplemental oxygen; Z88.1 Allergy status to other antibiotic agents; Z88.2 Allergy status to sulfonamides; Z88.8 Allergy status to other drugs, medicaments and biological substances; Z79.84 Long term (current) use of oral hypoglycemic drugs; Z79.82 Long term (current) use of aspirin; Z79.899 Other long term (current) drug therapy; Z98.890 Other specified postprocedural states; Z90.721 Acquired absence of ovaries, unilateral; Z79.51 Long term (current) use of inhaled steroids; Z87.442 Personal history of urinary calculi
CPT/HCPCS: 36415; 71046; 71046-26; 80048; 81001; 82962; 85027; 94640; 94667; 99285-25; A9270-GY; J1815; J2060; J2930; J7620-GY

== ENCOUNTER 2019-10-22 13:08 | Emergency (ER) | payer OTHER ==
[2019-10-22 13:20] VITALS: BP 143/69; PULSE 100
[2019-10-22] MEDS ORDERED: Albuterol 0.083% 2.5 MG/3 ML Neb Soln NEB ONE (14:25)
[2019-10-22] MEDS ORDERED: methylPREDNISolone Sodium Succinate 125 MG/2 ML SDV IVPUSH ONE (14:25)
--- NOTE | 2019-10-22 14:27 | EDM.PDOC ---
ED HPI GENERAL MEDICAL PROBLEM - General Chief Complaint: Respiratory Problem Stated Complaint: COUGH,SOB Time Seen by Provider: 10/22/19 14:26 Source of Information: Reports: Patient History Limitations: Reports: No Limitations - History of Present Illness INITIAL COMMENTS - FREE TEXT/NARRATIVE: pt has been wheezing and sob for the past 2-3 days, She has a long history of asthma. She has not traveled and she has not had a fever. Onset: Gradual Duration: Day(s): Location: Reports: Chest Associated Symptoms: Reports: Cough, Shortness of Breath Anterior Chest Pain Score (Numeric/FACES): 3 - Related Data Allergies Allergy/AdvReac Type Severity Reaction Status Date / Time ceftriaxone sodium Allergy Severe Respiratory Verified 10/22/19 13:36 [From Rocephin] Distress bupropion HCl Allergy Other Verified 10/22/19 13:36 [From Wellbutrin] Sulfa (Sulfonamide Allergy Hives Verified 10/22/19 13:36 Antibiotics) Home Meds: Home Meds Venlafaxine HCl 150 mg PO BID 10/04/13 [History] Albuterol/Ipratropium [Combivent Respimat] 1 inh INH Q6HR PRN 03/18/18 [History] Albuterol/Ipratropium [DuoNeb 3.0-0.5 MG/3 ML] 1 inh INH QID PRN 03/18/18 [ History] Gabapentin [Neurontin] 300 mg PO BID 03/18/18 [History] Aspirin 81 mg PO DAILY 10/20/18 [History] metFORMIN HCl [Metformin HCl] 2 tab PO BID 10/20/18 [History] atorvaSTATin [Lipitor] 10 mg PO BEDTIME 07/09/19 [History] Past Medical History HEENT History: Reports: Impaired Vision Cardiovascular History: Reports: High Cholesterol Respiratory History: Reports: Asthma, COPD, Pneumonia, Recurrent Genitourinary History: Reports: Renal Calculus 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: ovarian cyst Musculoskeletal History: Reports: Fracture Psychiatric History: Reports: Anxiety, Depression Endocrine/Metabolic History: Reports: Diabetes, Type II - Infectious Disease History Infectious Disease History: Reports: Chicken Pox, Measles - Past Surgical History Female Surgical History: Reports: Oophorectomy Other Musculoskeletal Surgeries/Procedures:: right knee surgery Social & Family History - Family History Family Medical History: Noncontributory OBGYN: Reports: Fibroids Musculoskeletal: Reports: Arthritis Psychiatric: Reports: Anxiety, Depression - Tobacco Use Smoking Status *Q: Former Smoker Years of Tobacco use: 44 Packs/Tins Daily: 0.5 Used Tobacco, but Quit: Yes Month/Year Tobacco Last Used: September 2019 Second Hand Smoke Exposure: No - Caffeine Use Caffeine Use: Reports: Soda - Recreational Drug Use Recreational Drug Use: No ED ROS GENERAL - Review of Systems Review Of Systems: See Below Constitutional: Reports: Decreased Appetite HEENT: Reports: No Symptoms Respiratory: Reports: Shortness of Breath, Wheezing, Cough Cardiovascular: Reports: No Symptoms Endocrine: Reports: No Symptoms GI/Abdominal: Reports: No Symptoms : Reports: No Symptoms Musculoskeletal: Reports: No Symptoms Skin: Reports: No Symptoms Neurological: Reports: No Symptoms ED EXAM, GENERAL - Physical Exam Exam: See Below Free Text/Narrative:: pt arrived with wheezing and sob. She is not raising colored sputum. Exam Limited By: No Limitations General Appearance: Alert, Anxious, Moderate Distress Ears: Normal TMs Nose: Normal Inspection Throat/Mouth: Normal Inspection Head: Atraumatic Neck: Normal Inspection Respiratory/Chest: Decreased Breath Sounds, Rhonchi, Wheezing Cardiovascular: Regular Rate, Rhythm GI/Abdominal: Soft, Non-Tender (Female) Exam: Deferred Rectal (Female) Exam: Deferred Back Exam: Normal Inspection Extremities: Normal Inspection Neurological: Alert, Oriented, Normal Cognition Psychiatric: Anxious Course - Vital Signs Last Recorded V/S: Last Vital Signs Temp 35.4 C L 10/22/19 13:44 Pulse 100 10/22/19 13:44 Resp 16 10/22/19 13:44 BP 143/69 H 10/22/19 13:44 Pulse Ox 90 L 10/22/19 13:44 - Orders/Labs/Meds Orders: Active Orders 24 hr Category Date Time Status RT Aerosol Therapy [RC] ASDIRECTED Care 10/22/19 14:25 Active Labs: Laboratory Tests 10/22/19 10/22/19 Range/Units 14:06 14:06 WBC 10.9 (4.5-11.0) K/uL RBC 4.60 (3.30-5.50) M/uL Hgb 13.6 (12.0-15.0) g/dL Hct 43.2 (36.0-48.0) % MCV 94 (80-98) fL MCH 30 (27-31) pg MCHC 32 (32-36) % Plt Count 354 (150-400) K/uL Neut % (Auto) 71 H (36-66) % Lymph % (Auto) 19 L (24-44) % Henry % (Auto) 8 H (2-6) % Eos % (Auto) 2 (2-4) % Baso % (Auto) 0 (0-1) % Sodium 141 (140-148) mmol/L Potassium 4.3 (3.6-5.2) mmol/L Chloride 102 (100-108) mmol/L Carbon Dioxide 31 (21-32) mmol/L Anion Gap 8.4 (5.0-14.0) mmol/L BUN 18 (7-18) mg/dL Creatinine 0.6 (0.6-1.0) mg/dL Est Cr Clr Drug Dosing 88.25 mL/min Estimated GFR (MDRD) > 60 (>60) Glucose 124 H (74-106) mg/dL Calcium 9.1 (8.5-10.1) mg/dL Total Bilirubin 0.2 (0.2-1.0) mg/dL AST 22 (15-37) U/L ALT 39 (12-78) U/L Alkaline Phosphatase 99 (46-116) U/L Total Protein 6.9 (6.4-8.2) g/dL Albumin 3.4 (3.4-5.0) g/dL Globulin 3.5 (2.3-3.5) g/dL Albumin/Globulin Ratio 1.0 L (1.2-2.2) Meds: Medications Discontinued Medications Generic Name Dose Route Start Last Admin Trade Name Freq PRN Reason Stop Dose Admin Albuterol 2.5 mg 10/22/19 14:25 10/22/19 15:02 Proventil Neb Soln NEB 10/22/19 14:26 2.5 mg ONETIME ONE Administration Methylprednisolone Sodium Succinate 125 mg 10/22/19 14:25 10/22/19 15:01 Solu-Medrol IVPUSH 10/22/19 14:26 125 mg ONETIME ONE Administration Departure - Departure Time of Disposition: 16:12 Disposition: Home, Self-Care 01 Condition: Fair Clinical Impression: Asthma attack, Low O2 saturation - Discharge Information Instructions: Asthma, Adult, Crgi-ce-Fasl Referrals: PCP,None [Primary Care Provider] - Forms: ED Department Discharge Care Plan Goals: use nebulizer every 4 hours during the waking hours, push fluids, predisone 10 mg 2 tabs daily for 3 days then 1 tab daily. cool mist humidifier Sepsis Event Note - Evaluation Sepsis Screening Result: No Definite Risk - Focused Exam Vital Signs: Vital Signs Temp Pulse Resp BP Pulse Ox 10/22/19 13:44 35.4 C L 100 16 143/69 H 90 L 10/22/19 13:19 35.4 C L 100 24 H 143/69 H 90 L Date Exam was Performed: 10/22/19 Time Exam was Performed: 16:23 - My Orders Last 24 Hours: My Active Orders 10/22/19 14:25 RT Aerosol Therapy [RC] ASDIRECTED - Assessment/Plan Last 24 Hours: My Active Orders 10/22/19 14:25 RT Aerosol Therapy [RC] ASDIRECTED
== END 2019-10-22 16:34 | disposition home or self-care (01) ==
LOC: JP.ED 13:08
DX: J45.909 Unspecified asthma, uncomplicated (principal); R09.02 Hypoxemia; E78.00 Pure hypercholesterolemia, unspecified; J44.9 Chronic obstructive pulmonary disease, unspecified; E11.9 Type 2 diabetes mellitus without complications; F41.9 Anxiety disorder, unspecified; F32.9 Major depressive disorder, single episode, unspecified; Z79.84 Long term (current) use of oral hypoglycemic drugs; Z79.899 Other long term (current) drug therapy; Z88.1 Allergy status to other antibiotic agents; Z88.2 Allergy status to sulfonamides; Z79.82 Long term (current) use of aspirin; Z87.891 Personal history of nicotine dependence
CPT/HCPCS: 36415; 80053; 85025; 94640; 96374; 99285; J2930

== ENCOUNTER 2021-02-13 12:19 | Emergency (ER) | payer OTHER ==
[2021-02-13 12:46] VITALS: BP 132/67
[2021-02-13] MEDS ORDERED: Albuterol/Ipratropium 3.0-0.5 MG/3 ML Neb Soln NEB ONE (13:04)
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
[2021-02-13] MEDS ORDERED: Dexamethasone 4 MG/ML SDV IM ONE (13:05)
[2021-02-13 14:16] LABS: CORONAVIRUS COVID-19 NAA NEGATIVE (NEGATIVE)
--- NOTE | 2021-02-14 09:59 | CR ---
CHEST: 2 view CLINICAL HISTORY:SOB COMPARISON:August 2019 FINDINGS: There is some patchy density in the left lower lobe. This may be some residual interstitial prominence. There is an infiltrate in this area on the September 04, 2019 study. This may represent some scarring. Impression: Minimal residual density left lower lobe site of previous infiltrate. This is likely some residual scarring or fibrosis
== END 2021-02-13 15:08 | disposition home or self-care (01) ==
LOC: JP.ED 12:19
DX: J44.1 Chronic obstructive pulmonary disease with (acute) exacerbation (principal); E78.00 Pure hypercholesterolemia, unspecified; E11.9 Type 2 diabetes mellitus without complications; Z79.82 Long term (current) use of aspirin; Z79.84 Long term (current) use of oral hypoglycemic drugs; Z72.0 Tobacco use; Z88.1 Allergy status to other antibiotic agents; Z88.2 Allergy status to sulfonamides; Z88.8 Allergy status to other drugs, medicaments and biological substances; Z20.822 Contact with and (suspected) exposure to COVID-19
CPT/HCPCS: 0241U; 71046; 94640; 96372; 99285; J1100; J7620-GY

== ENCOUNTER 2023-01-05 15:09 | Emergency (ER) | payer OTHER ==
[2023-01-05 15:23] VITALS: BP 129/62; PULSE 88
[2023-01-05] MEDS ORDERED: Bacitracin Oint 1 GM U/D Packet TOP ONE (16:13)
[2023-01-05] MEDS ORDERED: Lidocaine 1% 5 ML VIAL INJECT ONE (16:13)
[2023-01-05] MEDS ORDERED: Acetaminophen 500 MG Tab PO ONE (16:17)
[2023-01-05] MEDS ORDERED: Diphtheria,Pertussis(Acell),Tetanus Vaccine 0.5 ML Syringe IM ONE (17:01)
== END 2023-01-05 17:20 | disposition home or self-care (01) ==
LOC: JP.ED 15:09
DX: S01.01XA Laceration without foreign body of scalp, initial encounter (principal); F17.210 Nicotine dependence, cigarettes, uncomplicated; E11.9 Type 2 diabetes mellitus without complications; J44.9 Chronic obstructive pulmonary disease, unspecified; E78.00 Pure hypercholesterolemia, unspecified; Z79.82 Long term (current) use of aspirin; Z79.4 Long term (current) use of insulin; Z79.899 Other long term (current) drug therapy; Z88.2 Allergy status to sulfonamides; Z88.1 Allergy status to other antibiotic agents; Z88.8 Allergy status to other drugs, medicaments and biological substances; W01.198A Fall on same level from slipping, tripping and stumbling with subsequent striking against other object, initial encounter; Y92.62 Dock or shipyard as the place of occurrence of the external cause
CPT/HCPCS: 12001; 70450; 72125; 76377; 90471; 90715; 99283; A9270

== ENCOUNTER 2025-04-08 08:58 | Emergency (ER) | payer OTHER ==
[2025-04-08 09:37] LABS: BASOPHILS PERCENT AUTO 0.1 % (0.1-1.3); EOSINOPHILS ABSOLUTE AUTO 0.10 K/uL (0.00-0.40); EOSINOPHILS PERCENT AUTO 0.7 % (0.0-5.4); IMMATURE GRAN ABSOLUTE AUTO 0.05 K/uL (0.00-0.23); IMMATURE GRAN PERCENT AUTO 0.4 % (0.0-0.7); LYMPHOCYTES ABSOLUTE AUTO 1.06 K/uL (0.8-3.3); LYMPHOCYTES PERCENT AUTO 7.5 % (11.4-47.7); MONOCYTES ABSOLUTE AUTO 0.83 K/uL (0.20-0.90); MONOCYTES PERCENT AUTO 5.9 % (3.3-12.6); NEUTROPHILS ABSOLUTE AUTO 12.05 K/uL (1.0-7.6); NEUTROPHILS PERCENT AUTO 85.4 % (40.0-78.1); PLATELET COUNT,PLT 272 K/uL (130-375); RED BLOOD CELL COUNT 4.12 M/uL (3.77-5.24); WHITE BLOOD CELL COUNT,WBC 14.1 K/uL (3.2-11.0)
[2025-04-08 09:40] LABS: BASOPHILS ABSOLUTE AUTO 0.01 K/uL (0.00-0.10)
[2025-04-08] MEDS: methylPREDNISolone Sodium Succinate 125 MG/2 ML SDV IVPUSH ONE (09:52)
[2025-04-08 10:05] LABS: A/G RATIO 1.0 (1.2-2.2); ALANINE AMINOTRANSFERASE,ALT 35 U/L (12-78); ASPARTATE AMNIOTRANSFERASE,AST 20 U/L (15-37); BILIRUBIN TOTAL 0.4 mg/dL (0.2-1.0); BLOOD UREA NITROGEN,BUN 11 mg/dL (7-18); CARBON DIOXIDE,CO2 32 mmol/L (21-32); CHLORIDE,CL 103 mmol/L (100-108); CREATININE 0.4 mg/dL (0.6-1.0); ESTIMATED GFR 110 mL/min (>60); GLUCOSE RANDOM 124 mg/dL (74-106); POTASSIUM,K 4.3 mmol/L (3.6-5.2); PRO B-TYPE NATRIUR PEPT,BNPPRO 108 pg/mL (5-125); PROTEIN TOTAL,TP 7.5 g/dL (6.4-8.2); SODIUM,NA 142 mmol/L (140-148)
[2025-04-08] MEDS: Albuterol 0.083% 2.5 MG/3 ML Neb Soln NEB ONE (11:35)
[2025-04-08] MEDS: Magnesium Sulfate 2 GM/50 mL 2 GM in Premix Bag 1 BAG IV ONE (12:01)
[2025-04-08 14:33] VITALS: BP 134/63; PULSE 90
== END 2025-04-08 14:33 | disposition home or self-care (01) ==
LOC: JP.ED 08:58
DX: J44.1 Chronic obstructive pulmonary disease with (acute) exacerbation (principal); E78.00 Pure hypercholesterolemia, unspecified; E11.9 Type 2 diabetes mellitus without complications; Z88.2 Allergy status to sulfonamides; Z88.8 Allergy status to other drugs, medicaments and biological substances; Z79.84 Long term (current) use of oral hypoglycemic drugs; Z79.82 Long term (current) use of aspirin; Z79.899 Other long term (current) drug therapy
CPT/HCPCS: 36415; 71046; 80053; 83880; 85025; 93005; 94640; 96365; 96366; 96375; 99285; J2919; J3475; J7613; J7620; A9270-GY

== ENCOUNTER 2025-04-09 10:05 | Inpatient (IN) | payer OTHER ==
[2025-04-09 10:31] LABS: BASE EXCESS ARTERIAL 2.9 mm/L; BICARBONATE,ARTERIAL 28.4 mmol/L (22.0-26.0); O2 SATURATION ARTERIAL 95.9 % (95.0-98.0); OXYHEMOGLOBIN 93.6 %; PCO2 ARTERIAL 50.2 mmHg (35.0-42.0); PO2 ARTERIAL 82.1 mmHg (75.0-100.0); TOTAL HEMOGLOBIN 12.8 g/dL (12.0-16.0)
[2025-04-09 10:31] LABS: BASOPHILS PERCENT AUTO 0.1 % (0.1-1.3); EOSINOPHILS ABSOLUTE AUTO 0.08 K/uL (0.00-0.40); EOSINOPHILS PERCENT AUTO 0.6 % (0.0-5.4); IMMATURE GRAN ABSOLUTE AUTO 0.07 K/uL (0.00-0.23); IMMATURE GRAN PERCENT AUTO 0.5 % (0.0-0.7); LYMPHOCYTES ABSOLUTE AUTO 0.94 K/uL (0.8-3.3); LYMPHOCYTES PERCENT AUTO 6.8 % (11.4-47.7); MONOCYTES ABSOLUTE AUTO 1.12 K/uL (0.20-0.90); MONOCYTES PERCENT AUTO 8.1 % (3.3-12.6); NEUTROPHILS ABSOLUTE AUTO 11.66 K/uL (1.0-7.6); NEUTROPHILS PERCENT AUTO 83.9 % (40.0-78.1); PLATELET COUNT,PLT 271 K/uL (130-375); RED BLOOD CELL COUNT 4.15 M/uL (3.77-5.24); WHITE BLOOD CELL COUNT,WBC 13.9 K/uL (3.2-11.0)
[2025-04-09 10:37] LABS: BASOPHILS ABSOLUTE AUTO 0.01 K/uL (0.00-0.10)
[2025-04-09 10:45] LABS: BLOOD UREA NITROGEN,BUN 16.0 mg/dL (7-18); CARBON DIOXIDE,CO2 33.0 mmol/L (21-32); CHLORIDE,CL 103.0 mmol/L (100-108); CREATININE 0.4 mg/dL (0.6-1.0); EST CRCL DRUG DOSING (CG) 122.69 mL/min; ESTIMATED GFR 110.0 mL/min (>60); GLUCOSE RANDOM 112.0 mg/dL (74-106); POTASSIUM,K 4.1 mmol/L (3.6-5.2); SODIUM,NA 141.0 mmol/L (140-148)
[2025-04-09] MEDS: Albuterol 0.083% 2.5 MG/3 ML Neb Soln NEB ONE (10:58)
[2025-04-09] MEDS: methylPREDNISolone Sodium Succinate 125 MG/2 ML SDV IVPUSH ONE (10:59)
[2025-04-10 05:40] LABS: PLATELET COUNT,PLT 250.0 K/uL (130-375); RED BLOOD CELL COUNT 3.86 M/uL (3.77-5.24); WHITE BLOOD CELL COUNT,WBC 11.9 K/uL (3.2-11.0)
[2025-04-10 06:00] LABS: A/G RATIO 0.9 (1.2-2.2); ALANINE AMINOTRANSFERASE,ALT 42 U/L (12-78); ASPARTATE AMNIOTRANSFERASE,AST 23 U/L (15-37); BILIRUBIN TOTAL 0.2 mg/dL (0.2-1.0); BLOOD UREA NITROGEN,BUN 12 mg/dL (7-18); CARBON DIOXIDE,CO2 35 mmol/L (21-32); CHLORIDE,CL 104 mmol/L (100-108); CREATININE 0.4 mg/dL (0.6-1.0); EST CRCL DRUG DOSING (CG) 122.69 mL/min; ESTIMATED GFR 110 mL/min (>60); GLUCOSE RANDOM 120 mg/dL (74-106); POTASSIUM,K 4.1 mmol/L (3.6-5.2); PROTEIN TOTAL,TP 6.9 g/dL (6.4-8.2); SODIUM,NA 143 mmol/L (140-148)
[2025-04-10] MEDS ORDERED: Sodium Chloride 0.9% 10 ML Syringe FLUSH PRN (09:07)
[2025-04-10] MEDS ORDERED: Iopamidol 755 Mg/ML 100 ML Bottle IV SCH (09:15)
[2025-04-11 05:53] LABS: PLATELET COUNT,PLT 264.0 K/uL (130-375); RED BLOOD CELL COUNT 3.76 M/uL (3.77-5.24); WHITE BLOOD CELL COUNT,WBC 9.9 K/uL (3.2-11.0)
[2025-04-11 06:14] LABS: A/G RATIO 0.9 (1.2-2.2); ALANINE AMINOTRANSFERASE,ALT 71 U/L (12-78); ASPARTATE AMNIOTRANSFERASE,AST 29 U/L (15-37); BILIRUBIN TOTAL 0.2 mg/dL (0.2-1.0); BLOOD UREA NITROGEN,BUN 12 mg/dL (7-18); CARBON DIOXIDE,CO2 35 mmol/L (21-32); CHLORIDE,CL 104 mmol/L (100-108); CREATININE 0.4 mg/dL (0.6-1.0); EST CRCL DRUG DOSING (CG) 122.69 mL/min; ESTIMATED GFR 110 mL/min (>60); GLUCOSE RANDOM 119 mg/dL (74-106); POTASSIUM,K 3.8 mmol/L (3.6-5.2); PROTEIN TOTAL,TP 6.8 g/dL (6.4-8.2); SODIUM,NA 144 mmol/L (140-148)
[2025-04-12 04:07] VITALS: BP 174/78
[2025-04-12 05:54] LABS: PLATELET COUNT,PLT 253.0 K/uL (130-375); RED BLOOD CELL COUNT 4.03 M/uL (3.77-5.24); WHITE BLOOD CELL COUNT,WBC 10.2 K/uL (3.2-11.0)
[2025-04-12 06:18] LABS: A/G RATIO 0.9 (1.2-2.2); ALANINE AMINOTRANSFERASE,ALT 85 U/L (12-78); ASPARTATE AMNIOTRANSFERASE,AST 36 U/L (15-37); BILIRUBIN TOTAL 0.2 mg/dL (0.2-1.0); BLOOD UREA NITROGEN,BUN 13 mg/dL (7-18); CARBON DIOXIDE,CO2 36 mmol/L (21-32); CHLORIDE,CL 103 mmol/L (100-108); CREATININE 0.4 mg/dL (0.6-1.0); EST CRCL DRUG DOSING (CG) 122.69 mL/min; ESTIMATED GFR 110 mL/min (>60); GLUCOSE RANDOM 120 mg/dL (74-106); POTASSIUM,K 4.1 mmol/L (3.6-5.2); PROTEIN TOTAL,TP 7.0 g/dL (6.4-8.2); SODIUM,NA 143 mmol/L (140-148)
[2025-04-12 11:24] VITALS: PULSE 90
== END 2025-04-12 10:25 | disposition home or self-care (01) | DRG 193 ==
LOC: JP.ED 10:05 → JP.MS 12:06
PROVIDERS: ADMIT Student in an Organized Health Care Education/Training Program; ATTEND Student in an Organized Health Care Education/Training Program
PROC: 4A033R1 Measurement of Arterial Saturation, Peripheral, Percutaneous Approach (ICD-10-PCS; principal; 2025-04-09)
DX: J18.9 Pneumonia, unspecified organism (principal); J96.01 Acute respiratory failure with hypoxia; J44.1 Chronic obstructive pulmonary disease with (acute) exacerbation; H54.7 Unspecified visual loss; E78.00 Pure hypercholesterolemia, unspecified; F41.9 Anxiety disorder, unspecified; F32.A Depression, unspecified; E11.9 Type 2 diabetes mellitus without complications; F17.210 Nicotine dependence, cigarettes, uncomplicated; Z90.722 Acquired absence of ovaries, bilateral; Z88.1 Allergy status to other antibiotic agents; Z88.2 Allergy status to sulfonamides; Z79.82 Long term (current) use of aspirin; Z79.84 Long term (current) use of oral hypoglycemic drugs; Z79.2 Long term (current) use of antibiotics; Z79.52 Long term (current) use of systemic steroids; Z79.51 Long term (current) use of inhaled steroids; Z87.81 Personal history of (healed) traumatic fracture
CPT/HCPCS: 36415; 36600; 71045; 71045-26; 71275; 71275-26; 80048; 80053; 82803; 85025; 85027; 87426-QW; 94640; 96374; 99223; 99232; 99238; 99284; 99285-25; A9270-GY; J1650; J2919; J7030; J7512